=== PATIENT | male | born 1960 | race Caucasian/White ===

== ENCOUNTER → 2024-05-13 | Day surgery (SDC) | payer OTHER ==
[2024-05-11 15:23] VITALS: BMI 30.2
[~2024-05-13] MED LIST: ALPRAZolam 0.25 MG TAB PO PRN; ALPRAZolam 0.5 MG TAB PO PRN; ASPIRIN 325 MG TAB PO ONE; HEPARIN SODIUM,PORCINE (1 ML) 2,500 UNIT in SODIUM CHLORIDE 0.9% 250 ML IRRIGATION PRN; HEPARIN SODIUM,PORCINE 10,000 UNIT in SODIUM CHLORIDE 0.9% 1,000 ML IRRIGATION PRN; NITROGLYCERIN SL TABS 0.4 MG TAB SUBLINGUAL PRN; RX INFO: IV CONTRAST WAS GIVEN 1 EACH MISC MISCELLANE PRN; SODIUM CHLORIDE 0.9% 1,000 ML IV SCH; SODIUM CHLORIDE 0.9% 1,000 ML in EMPTY BAG 1 BAG IV SCH
[2024-05-13] MEDS: SODIUM CHLORIDE 0.9% 1,000 ML IV ONE (07:16)
[2024-05-13 07:30] VITALS: RESP 16; TEMP 98.1
[2024-05-13 07:50] LABS: Basophils % (A) 0 %; Eosinophils # (A) 0.2 k/uL (0-0.7); Eosinophils % (A) 2 %; HCT 50.4 % (39.0-53.0); HGB 16.5 gm/dL (13.0-17.5); Lymphocytes # (A) 1.7 k/uL (1.0-4.8); Lymphocytes % (A) 16 %; MCH 31.6 pg (25.0-35.0); MCHC 32.8 g/dL (31.0-37.0); MCV 96.3 fL (80.0-100.0); Mean Platelet Volume 8.5; Monocytes # (A) 0.6 k/uL (0-1.0); Monocytes % (A) 5 %; Neutrophils # (A) 8.4 k/uL (1.3-7.7); Neutrophils % (A) 76 %; Platelet Count 245 k/uL (150-450); RBC 5.23 m/uL (4.30-5.90); RDW 12.3 % (11.5-15.5); WBC 11.1 k/uL (3.8-10.6)
[2024-05-13 07:54] LABS: African American GFR (CKD) >90 (>60 ml/min/1.73 sqM); Anion Gap 9 mmol/L; Blood Urea Nitrogen 15 mg/dL (9-20); Calcium 9.1 mg/dL (8.4-10.2); Carbon Dioxide 25 mmol/L (22-30); Chloride 104 mmol/L (98-107); Glucose 120 mg/dL (74-99); Non-African American GFR(CKD) >90 (>60 ml/min/1.73 sqM); Sodium 138 mmol/L (137-145)
[2024-05-13] MEDS: MIDAZOLAM 2 MG/2 ML VIAL IVP ONE ×2 (09:48→09:57)
[2024-05-13] MEDS: LIDOCAINE 1% INJ 10MG/ML (20 ML MDV) SQ ONE (09:50)
[2024-05-13] MEDS: VERAPAMIL SYRINGE (5 MG/10 ML) INTRAARTER ONE (09:52)
[2024-05-13] MEDS: HEPARIN SODIUM 1,000 UN/ML (10ML VL) IVP ONE (09:54)
[2024-05-13] MEDS: IOPAMIDOL-370 100ML BTL INJ ONE (10:02)
--- NOTE | 2024-05-13 10:13 | P.PCN ---
Date of Procedure: 05/13/24 Operative Findings: CARDIAC CATHETERIZATION PERFORMING PHYSICIAN: Nate Torrez MD, RPVI PROCEDURE PERFORMED: 1. Selective right and left coronary angiogram 2. Left heart catheterization 3. Ultrasound-guided access of the right radial artery INDICATION: Symptomatic 63-year-old gentleman with hypertension and dyslipidemia and aortic insufficiency and dilated thoracic aorta was experiencing symptoms of shortness of breath and underwent myocardial perfusion imaging stress that showed high risk features with anterior wall ischemia at moderate size. In the light of that a heart catheterization was advised COMPLICATION: None APPROACH: Right radial artery LEVEL OF SEDATION: Moderate with a sedation length of 16 minutes PROCEDURE DESCRIPTION: After obtaining an informed consent, the patient was brought to cardiac technical laboratory asst. Local anesthesia was performed using lidocaine subcutaneously. The right radial artery was cannulated using Seldinger technique, the guidewire passed easily, following that we advanced a 5-Marshallese sheath dilator assembly, the wire and dilator were removed and sheath was flushed. Following that, 2 mg of verapamil along with 5000 unit heparin were given. Selective right and left coronary angiogram using a 6-Marshallese JR4 and JL 3.5 catheters. Following that we did left heart catheterization using 6-Marshallese pigtail catheter. The procedure was completed there was no complication. SELECTIVE CORONARY ANGIOGRAM: The right coronary artery: Large caliber vessel and a dominant vessel. The RCA has mild disease in the proximal portion with no high-grade stenosis was identified. Contralateral collateral filling the left anterior descending artery was noted and filled the LAD all the way to the mid to proximal portion Left main: Has mild disease only. Bifurcates into an LCx and LAD The left circumflex: Large caliber vessel. The LCx/OM1 has a tubular lesion up to about 70 to 80% in the proximal to midportion. The left anterior descending artery: The LAD is occluded in the proximal to midportion right after the bifurcation of a large diagonal branch. The LAD fills mainly by contralateral collateral and some ipsilateral collaterals. HEMODYNAMICS: The LVEDP was 12 mmHg with no significant gradient across aortic valve CONCLUSION: 1. Occluded left anterior descending artery in the proximal to midportion and the LAD fills mainly by contralateral collateral. 2. Severe disease involving the first obtuse marginal branch of the left circumflex coronary artery POSTPROCEDURE MANAGEMENT: Giving the above anatomy I advised the patient to evaluated by cardiothoracic surgeon for an evaluation of CABG.
--- NOTE | 2024-05-13 11:56 | P.GSCN ---
History of Present Illness Consult date: 05/13/24 Reason for Consult: Multivessel coronary artery disease Requesting physician: Nate Torrez History of present illness: This is a 63-year-old gentleman who follows on an outpatient basis with Dr. Christofer Sunshine for his primary care and with Dr. Torrez for his cardiology care. The patient has a past medical history significant for hypertension, hyperlipidemia, family history of early onset coronary artery disease with his mom passing away at age 60 from a heart attack, skin cancer to his head and to his left upper chest, osteoarthritis with history of bilateral rotator cuff surgery, a remote history of nicotine dependence quit smoking 20 years ago and daily EtOH use drinking 2-3 beers per day. Recently the patient states he underwent a physical exam and was complaining of some shortness of breath episodes to his primary care physician. The patient denies any recent fever, chills, nausea, vomiting, headache, hemoptysis, hematemesis, chest pain/chest pressure, lightheadedness, presyncope or syncope. Subsequently the patient was seen by Dr. Bowling from cardiology and underwent a nuclear Sangeetha scan Cardiolite stress test on February 17, 2024 which demonstrated an abnormal myocardial perfusion with evidence of rever sible defect of moderate size and moderately intensity anteriorly, it also showed a normal left ventricular systolic function. For further evaluation on April 21, 2024 the patient underwent a transthoracic 2D echocardiogram which showed a normal left ventricular systolic function with an ejection fraction of 55%, mild mitral valve regurgitation directed centrally, a trileaflet aortic valve with mild aortic valve regurgitation, mild tricuspid valve regurgitation and a normal pulmonary artery systolic pressure of 25 mmHg. Due to the patient's continued complaints of shortness of breath with activity and some jaw discomfort with activity the patient was recommended to undergo a cardiac jacqueline terization which was completed today. The cardiac catheterization revealed mild disease to his left main coronary artery, a 70 to 80% stenosis to his circumflex coronary artery, and occluded left anterior descending coronary artery in the proximal to midportion, and shows the left anterior descending coronary artery fills mainly by contralateral collaterals, and mild disease in the proximal portion of the right coronary artery with no high-grade stenosis. Subsequently due to the patient's results on his stress test, the patient's symptoms and the findings on the cardiac catheterization a consult was placed to Dr. Rick Tipton from cardiothoracic surgery for further evaluation and treatment recommendations including myocardial vascularization surgery. Review of Systems A review of systems was completed and was negative except as mentioned in the HPI. Past Medical History Past Medical History: Hyperlipidemia, Hypertension, Skin Disorder Additional Past Medical History / Comment(s): "I was having difficulty after exerting myself." "Spots on collar bone" History of Any Multi-Drug Resistant Organisms: None Reported Past Surgical History: Orthopedic Surgery Additional Past Surgical History / Comment(s): Bi lat rotator cuff repair. "Spots removed from collar bone." Additional Past Anesthesia/Blood Transfusion Reaction / Comm: No hx of blood transfusion. Past Psychological History: No Psychological Hx Reported Smoking Status: Former smoker (Quit 20 years ago) Past Alcohol Use History: Daily ( drinks 2-3 beers per day) Past Drug Use History: None Reported - Past Family History Father Family Medical History: Cancer (History of leukemia and bladder cancer) Mother Family Medical History: Myocardial Infarction (NC) ( at age 60 from myocardial infarction) Additional Family Medical History / Comment(s): Obese Medications and Allergies Home Medications Medication Instructions Recorded Confirmed Type Aspirin EC [Ecotrin Low Dose] 81 mg PO QA 05/11/24 05/13/24 History Atorvastatin [Lipitor] 40 mg PO QAM 05/11/24 05/11/24 History Olmesartan Medoxomil [Benicar] 40 mg PO QA 05/11/24 05/11/24 History Vit B-12(Unknown Dose) 1 dose PO QA 05/11/24 05/13/24 History Allergies Allergy/AdvReac Type Severity Reaction Status Date / Time No Known Allergies Allergy Verified 05/13/24 07:33 Surgical - Exam Vital Signs Temp Pulse Resp BP Pulse Ox 98.1 F 70 16 175/91 98 05/13/24 07:27 05/13/24 07:27 05/13/24 07:27 05/13/24 07:27 05/13/24 07:27 - General well developed, well nourished, no distress, no pain, obese - Eyes PERRL, normal ocular movement, no pale, no icteric - ENT normal pinna, normal nares, normal mucosa, no hearing loss, no congestion - Neck Neck is supple, no lymphadenopathy. no masses, no bruits, trachea midline, no venous distension - Respiratory Lung sounds essentially clear throughout, no wheezes, rhonchi or crackles. Respirations are symmetrical and nonlabored. - Cardiovascular Regular rhythm and rate. S1 and S2 present, negative for S3, or gallop. Soft systolic murmur. - Abdomen Abdomen is soft, nontender and nondistended. Active bowel sounds present all 4 abdominal quadrants. No guarding rigidity. No organomegaly appreciated. - Genitourinary Deferred - Rectum Deferred - Integumentary Skin is warm and dry. No clubbing or cyanosis is present. no rash, no growths - Neurologic No focal deficits. - Musculoskeletal Moves all 4 extremities with equal strength bilateral. - Psychiatric oriented to time, oriented to person, oriented to place, speech is normal, memory intact Results - Labs 05/13/24 07:22 05/13/24 07:22 Abnormal Lab Results - Last 24 Hours (Table) 05/13/24 05/13/24 Range/Units 07:22 07:22 WBC 11.1 H (3.8-10.6) k/uL Neutrophils # 8.4 H (1.3-7.7) k/uL Glucose 120 H (74-99) mg/dL Diabetes panel 05/13/24 Range/Units 07:22 Sodium 138 (137-145) mmol/L Potassium 4.0 (3.5-5.1) mmol/L Chloride 104 (98-107) mmol/L Carbon Dioxide 25 (22-30) mmol/L BUN 15 (9-20) mg/dL Creatinine 0.88 (0.66-1.25) mg/dL Glucose 120 H (74-99) mg/dL Calcium 9.1 (8.4-10.2) mg/dL Calcium panel 05/13/24 Range/Units 07:22 Calcium 9.1 (8.4-10.2) mg/dL Pituitary panel 05/13/24 Range/Units 07:22 Sodium 138 (137-145) mmol/L Potassium 4.0 (3.5-5.1) mmol/L Chloride 104 (98-107) mmol/L Carbon Dioxide 25 (22-30) mmol/L BUN 15 (9-20) mg/dL Creatinine 0.88 (0.66-1.25) mg/dL Glucose 120 H (74-99) mg/dL Calcium 9.1 (8.4-10.2) mg/dL Adrenal panel 05/13/24 Range/Units 07:22 Sodium 138 (137-145) mmol/L Potassium 4.0 (3.5-5.1) mmol/L Chloride 104 (98-107) mmol/L Carbon Dioxide 25 (22-30) mmol/L BUN 15 (9-20) mg/dL Creatinine 0.88 (0.66-1.25) mg/dL Glucose 120 H (74-99) mg/dL Calcium 9.1 (8.4-10.2) mg/dL - Imaging Additional studies: Cardiac catheterization results reviewed. Assessment and Plan Assessment: Multivessel coronary artery disease Dyspnea on exertion, likely secondary to above Hypertension Hyperlipidemia Family history of early onset coronary artery disease with his mother passing away from a myocardial infarction at age 60 Daily EtOH use drinking 2-3 beers per day Remote history of nicotine dependence quit smoking 20 years ago History of skin cancer, basal cell Osteoarthritis with history of bilateral rotator cuff surgery Plan: The patient was seen and examined at his bedside in the extended stay unit. His chart and diagnostics reviewed. His case was discussed in detail with Dr. Rick Tipton from cardiothoracic surgery. The usual course of myocardial revascularization surgery has been discussed with the patient. A clinical frailty score has been calculated with a score equaling 1. Once the patient is able to ambulate a 5 m walk test will be calculated with the patient. Preoperative testing and preoperative teaching has been initiated. Once the patient's preoperative testing has been obtained and STS risk or will be calculated and discussed with the patient. Medical management other comorbidities per primary care service and cardiology service. More recommendations to follow based on patient's clinical course and as his preoperative testing has been obtained. Thank you Dr. Torrez for this consult and we look forward to working with you in the care of this patient. I have personally seen and examined the patient, performed the documentation and the assessment and plan as written. Number of minutes spent on the visit: 30. AMY Marcano
[2024-05-13 12:59] LABS: Appearance,Urine Clear (Clear); Bilirubin,Urine Negative (Negative); Blood,Urine Negative (Negative); Color,Urine Colorless; Glucose,Urine (UA) Trace (Negative); Ketones,Urine Negative (Negative); Leukocyte Esterase,Urine Negative (Negative); Nitrite,Urine Negative (Negative); PH, Urine 6.5 (5.0-8.0); Protein,Urine Negative (Negative); Specific Gravity,Urine 1.031 (1.001-1.035); Urobilinogen,Urine <2.0 mg/dL (<2.0)
--- NOTE | 2024-05-13 13:02 | US ---
EXAMINATION TYPE: US vein mapping BILAT DATE OF EXAM: 05/13/2024 12:33 PM Exam done portable COMPARISON: NONE CLINICAL INDICATION: Male, 63 years old with history of PreOp Cardiac Surgery; SIDE PERFORMED: Bilateral TECHNIQUE: Lower extremity saphenous vein is examined and measured utilizing real time linear array sonography. DUPLEX FINDINGS: Greater Saphenous: Color flow seen Lesser Saphenous: Color flow seen Measurements in mm: Right Greater Saphenous: Groin: 8.6 x 7.4 mm High Thigh: 6.9 x 6.0 mm Mid Thigh: 6.3 x 4.6 mm Above Knee: 6.1 x 4.7 mm Knee: 5.5 x 4.6 mm Below Knee: 5.0 x 4.0 mm Mid Calf: 3.7 x 2.8 mm At Ankle: 4.2 x 2.9 mm Left Greater Saphenous: Groin: 6.3 x 6.1 mm High Thigh: 6.0 x 5.5 mm Mid Thigh: 5.0 x 3.8 mm Above Knee: 5.7 x 4.1 mm Knee: 3.9 x 3.2 mm Below Knee: 4.5 x 3.5 mm Mid Calf: 4.1 x 3.1 mm At Ankle: 3.3 x 2.7 mm IMPRESSION: 1. Bilateral GSV measurements listed above. 2. Performing surgeon to determine viability as conduit. [facility] 05/13/2024 12:40 PM
--- NOTE | 2024-05-13 13:05 | US ---
EXAMINATION TYPE: Pre-Operative Non-Invasive Evaluation of the hand for Potential Radial Artery [address], Measurements only Exam done portable DATE OF EXAM: 05/13/2024 12:33 PM CLINICAL INDICATION: Male, 63 years old with history of Pre-Op Cardiac Surgery; SIDE PERFORMED: Left TECHNIQUE: Radial artery is measured utilizing real time linear array sonography. Duplex Findings: Radial Artery: Color flow seen Measurements in mm, transverse view: Left Radial: Proximal: 2.8 x 3.1 mm Mid: 3.0 x 3.1 mm Distal: 3.1 x 3.2 mm IMPRESSION: 1. Left radial artery measurements listed above. 2. Performing surgeon to determine viability as conduit. [facility] 05/13/2024 12:38 PM
--- NOTE | 2024-05-13 13:06 | US ---
EXAMINATION TYPE: US carotid duplex BILAT DATE OF EXAM: 05/13/2024 Exam done portable COMPARISON: NONE CLINICAL INDICATION: Male, 63 years old with history of Pre-Op Cardiac Surgery; TECHNIQUE: Carotid duplex ultrasound examination. Indirect Doppler criteria was utilized. FINDINGS: EXAM MEASUREMENTS: RIGHT: Peak Systolic Velocity (PSV) cm/sec ----- Right CCA: 72.8 ----- Right ICA: 74.8 ----- Right ECA: 107.0 ICA/CCA ratio: 1.0 RIGHT: End Diastole cm/sec ----- Right CCA: 14.7 ----- Right ICA: 24.0 ----- Right ECA: 6.4 LEFT: Peak Systolic Velocity (PSV) cm/sec ----- Left CCA: 90.3 ----- Left ICA: 95.0 ----- Left ECA: 105.0 ICA/CCA ratio: 1.1 LEFT: End Diastole cm/sec ----- Left CCA: 16.2 ----- Left ICA: 24.3 ----- Left ECA: 6.6 VERTEBRALS (direction of flow): Right Vertebral: Antegrade Left Vertebral: Antegrade Rhythm: Normal No significant stenosis Moderate atherosclerotic plaque within the left carotid bulb. IMPRESSION: No ultrasound evidence for hemodynamically significant stenosis of the bilateral visualized carotid a rterial systems. [facility] 05/13/2024 12:34 PM Criteria for Assigning % of Stenosis / Diameter reduction (Estimation based on the indirect measurements of the internal carotid artery velocities (ICA PSV). 1. Normal (no stenosis)=ICA PSV < 125 cm/s: ratio < 2.0: ICA EDV<40 cm/s. 2. Less than 50% stenosis=ICA PSV < 125 cm/s: ratio < 2.0: ICA EDV<40 cm/s. 3. 50 to 69% stenosis=ICA PSV of 125 to 230 cm/s: ration 2.0 ? 4.0: ICA EDV 40-100 cm/s. 4. Greater than 70% stenosis to near occlusion= ICA PSV > 230 cm/s: ratio > 4.0: ICA EDV > 100 cm/s. 5. Near occlusion= ICA PSV velocities may be low or undetectable: variable ratio and ICA EDV. 6. Total occlusion=unable to detect flow.
--- NOTE | 2024-05-13 13:29 | US ---
EXAMINATION TYPE: US arterial LE multi level DATE OF EXAM: 05/13/2024 1:21 PM CLINICAL INDICATION: Male, 63 years old with history of Ankle Brachial Index (RUSTY) ; History of: Smoker: prior Hypertension: Y Diabetic: N Hyperlipidemia: Y TIA/CVA: N Previous Vascular Surgery: N CAD: N MN: N Vascular Ulcers: N Claudication: N Gangrene: N Doppler Waveforms: Right: Multiphasic Left: Multiphasic Right Brachial Pressure: HEART CATH Left Brachial Pressure: 155 Ankle-Brachial Indices: Right: 1.1 Left: 1.1 (Vessel hardening > 1.4; Normal 0.9 - 1.4, Moderate 0.7 - 0.9, Severe 0.5-0.7) NORMAL WAVEFORMS LIMITED DUE TO INTERFERENCE IN ESU IMPRESSION: Normal ankle-brachial indices bilaterally. [facility] 05/13/2024 1:22 PM
--- NOTE | 2024-05-13 13:36 | XR ---
EXAMINATION TYPE: XR chest 2V DATE OF EXAM: 05/13/2024 COMPARISON: NONE HISTORY: PreOp Cardiac Surgery TECHNIQUE: Frontal and lateral views of the chest are obtained. FINDINGS: Scattered senescent parenchymal changes noted. No evidence for infiltrate. No evidence for atelectasis. Heart size is stable. Mediastinal structures are stable and grossly unremarkable. No evidence for hilar prominence. Degenerative changes dorsal spine. IMPRESSION: 1. No evidence for acute pulmonary disease.
--- NOTE | 2024-05-13 14:04 | CT ---
EXAMINATION TYPE: CT chest wo con CT DLP: 435 mGycm, Automated exposure control for dose reduction was used. DATE OF EXAM: 05/13/2024 1:44 PM COMPARISON: Chest 05/13/2024. CLINICAL INDICATION: Male, 63 years old with history of Evaluate aorta; [facility], TECHNIQUE: Multiple axial images were obtained through the chest. Sagittal and coronal reformats were created for review. Contrast used: mL of (None if empty) Oral contrast used: (None if empty) FINDINGS: LUNGS/ PLEURA: No focal consolidation, pneumothorax or pleural effusion. Streaky atelectasis in the l shiva bases. AIRWAY: Patent and unremarkable. HEART: Size within normal limits.Atherosclerosis of the arterial vasculature. MEDIASTINUM: No gross evidence of adenopathy. VASCULATURE: No aortic aneurysm. The ascending thoracic aorta measures up to 39 mm. Mild atheroscler osis of the aorta. The descending thoracic aorta measures up to 27 mm. The abdominal aorta visualized is within normal limits. MUSCULOSKELETAL: No acute osseous abnormalities SOFT TISSUES/LYMPH NODES: Unremarkable. LOWER NECK: No significant findings. UPPER ABDOMEN: No significant findings. IMPRESSION: 1. No Evidence for acute process. The ascending and descending thoracic aorta are within normal limi ts for size. 2. Mild atherosclerosis of the arterial vasculature including the coronary arteries.
[2024-05-13 14:44] LABS: Partial Thromboplastin Time 24.7 sec (22.0-30.0); Prothrombin Time 10.6 sec (10.0-12.5)
[2024-05-13 14:53] LABS: Sodium 137 mmol/L (137-145)
[2024-05-13 14:54] LABS: ALT 18 U/L (4-49); AST 24 U/L (17-59); African American GFR (CKD) >90 (>60 ml/min/1.73 sqM); Albumin 3.9 g/dL (3.5-5.0); Alkaline Phosphatase 78 U/L (38-126); Anion Gap 8 mmol/L; Blood Urea Nitrogen 15 mg/dL (9-20); Carbon Dioxide 24 mmol/L (22-30); Chloride 105 mmol/L (98-107); Glucose 131 mg/dL (74-99); Magnesium 2.1 mg/dL (1.6-2.3); Non-African American GFR(CKD) >90 (>60 ml/min/1.73 sqM); Potassium 4.3 mmol/L (3.5-5.1); Total Bilirubin 0.7 mg/dL (0.2-1.3); Total Protein 6.7 g/dL (6.3-8.2)
[2024-05-13 16:21] VITALS: BP 141/73; PULSE 71
[2024-05-13 21:03] LABS: Hepatitis A Antibody IgM Nonreactive (Nonreactive); Hepatitis B Core IgM Nonreactive (Nonreactive); Hepatitis B Surface Antigen Nonreactive (Nonreactive); Hepatitis C IgG Antibody Nonreactive (Nonreactive)
[2024-05-14 01:52] LABS: Chol/HDL Ratio 4.63 Ratio; LDL Cholesterol,Calculated 148.6 mg/dL (0.0-131.0)
== END ==
LOC: CATHCVL 07:04
PROVIDERS: ATTEND Internal Medicine Interventional Cardiology
DX: R06.02 Shortness of breath (principal); I10 Essential (primary) hypertension; E78.5 Hyperlipidemia, unspecified; F17.200 Nicotine dependence, unspecified, uncomplicated; C44.90 Unspecified malignant neoplasm of skin, unspecified; E66.3 Overweight; Z68.30 Body mass index [BMI] 30.0-30.9, adult; Z79.02 Long term (current) use of antithrombotics/antiplatelets; Z79.82 Long term (current) use of aspirin; Z79.899 Other long term (current) drug therapy
CPT/HCPCS: 94150; 93458; 80061; 80053; 80048; 80074; 84443; 83735; 85025; 85610; 85730; 81003; 87070; 83036; 71046; 93931; 93970; 93923; 93880; 71250; J2250; J2001; J1644; Q9967

== ENCOUNTER → 2024-05-20 | Outpatient (CLI) | payer OTHER | END | disposition home or self-care (01) | LOC: LABPAT 15:32 | PROVIDERS: ATTEND Thoracic Surgery (Cardiothoracic Vascular Surgery) | DX: Z53.9 Procedure and treatment not carried out, unspecified reason (principal) | CPT/HCPCS: 86850; 86900; 86901; 86920 ==

== ENCOUNTER 2024-05-24 05:35 | Inpatient (IN) | payer OTHER ==
[2024-05-24] MEDS: IV FLUID CONTINUATION 1,000 ML IV ONE (06:00)
[2024-05-24] MEDS: LACTATED RINGERS 1,000 ML IV ONE (06:23)
[2024-05-24] MEDS: METOPROLOL TARTRATE 12.5 MG TAB PO ONE (06:27)
[2024-05-24] MEDS: ATORVASTATIN 10 MG TAB PO ONE (06:27)
--- NOTE | 2024-05-24 06:33 | P.PN ---
Progress Note - Text Progress Note Date: 05/24/24 5 meter walk test completed without difficulty: #1 2.98 sec #2 3.5 sec #3 3.27 sec STS risk score discussed with patient, CFS 1
[2024-05-24] MEDS ORDERED: NITROGLYCERIN-D5W PMX 50 MG/250 ML BOTTLE IV ONE (08:03)
[2024-05-24] MEDS ORDERED: HEPARIN SODIUM,PORCINE 10,000 UNIT/ML 1 ML VIAL ONE (08:03)
[2024-05-24] MEDS ORDERED: PROPOFOL 10 MG/ML 20 ML VIAL IV ONE (08:03)
[2024-05-24] MEDS ORDERED: GLYCOPYRROLATE 0.2 MG/ML 2 ML VIAL ONE (08:03)
[2024-05-24] MEDS ORDERED: VECURONIUM 10 MG VIAL IV ONE (08:03)
[2024-05-24] MEDS ORDERED: MIDAZOLAM HCL 10 MG/10 ML VIAL ONE (08:03)
[2024-05-24] MEDS ORDERED: PROTAMINE SULFATE 10 MG/ML 25 ML VIAL IV ONE (08:03)
[2024-05-24] MEDS ORDERED: PHENYLEPHRINE 10 MG/ML VIAL ONE (08:03)
[2024-05-24] MEDS ORDERED: ALBUMIN HUMAN 5% (25gm) 500 ML VIAL IVPB ONE (08:03)
[2024-05-24] MEDS ORDERED: fentaNYL (PF) 50 MCG/ML 50 ML VIAL ONE (08:03)
[2024-05-24] MEDS ORDERED: ePHEDrine 50 MG/ML 1 ML VIAL ONE (08:03)
[2024-05-24] MEDS: SODIUM CHLORIDE 0.9% 50 ML with ceFAZolin 2,000 MG IV ONE (08:14)
[2024-05-24 08:43] LABS: ABG Base Excess 1.1 mmol/L; ABG Glucose Whole Blood 121 mg/dL (75-99); ABG HCO3 26 mmol/L (21-25); ABG Hematocrit 42 % (34.0-46.0); ABG Ionized Calcium 4.6 mg/dL (4.5-5.3); ABG Lactic Acid Whole Blood 1.1 mmol/L (0.5-1.6); ABG Oxygen Saturation 99.1 % (94-97); ABG PCO2 42 mmHg (35-45); ABG PO2 288 mmHg (83-108); ABG Potassium Whole Blood 4.1 mmol/L (3.4-4.5); ABG Sodium Whole Blood 139 mmol/L (135-146); ABG TCO2 23 mmol/L (19-24); Allen Test Performed? Yes
[2024-05-24] MEDS: PAPAVERINE 360 MG in SODIUM CHLORIDE 0.9% 90 ML IV ONE (09:00)
[2024-05-24] MEDS: SODIUM CHLORIDE 0.9% 500 ML 500 ML with HEPARIN SODIUM,PORCINE (1 ML) 5,000 UNIT IV ONE (09:00)
[2024-05-24] MEDS: ceFAZolin 1,000 MG in SODIUM CHLORIDE 0.9% 1,000 ML IRRIGATION ONE (09:01)
--- NOTE | 2024-05-24 10:38 | P.ANPRN ---
Procedure Note - Anesthesia - Invasive Line Right [place] Mallorie Time Out Performed: Yes (0731) Date of Procedure: 05/24/24 Time of Procedure: 07:36 Location of Patient: PreOp Preparation: Sterile Prep [place] Mallorie Line Location: Internal Jugular Ultrasound Used: No Purpose - Visualization and Identification of Vasculature: No Image Stored and Saved: No Narrative: Invasive line placement per sterile protocol utilized. Anesthesia note Procedure right [place]-Mallorie catheter placed through right internal jugular central venous catheter Sterile protocol maintained from previous procedure. [place]-Mallorie catheter sterilely placed in sheath and flushed prior to insertion. After advancing 15 cm [place]-Mallorie catheter was then slowly inserted with balloon up. Advanced through CVP, RV to PA waveform. [place]-Mallorie catheter wedged around 53 cm. Balloon down. Catheter withdrawn 5 cm. . No wedge. Proximal and distal sites locked on sheath. Attempts x1. Sterile drapes removed and dressings applied.
--- NOTE | 2024-05-24 10:38 | P.ANPRN ---
Procedure Note - Anesthesia - Invasive Line Right Central Line Time Out Performed: Yes (731) Date of Procedure: 05/24/24 Time of Procedure: 07:32 Location of Patient: PreOp Preparation: Sterile Prep, Sterile Dressing Central Line Location: Internal Jugular (right cordis) Ultrasound Used: Yes Purpose - Visualization and Identification of Vasculature: Yes Needle Guage: 18g angio Image Stored and Saved: Yes Narrative: Invasive line placement per sterile protocol utilized. Anesthesia note Procedure: Right internal jugular central venous catheter insertion: 8.5-Telugu Cordis Sterile protocol followed. Right neck prepped. Ultrasound used. Lidocaine 1% used. Using ultrasound local anesthetic was instilled site over right Internal Jugular vein. Angiocath was used to gain access via ultrasound. Once free flow non-pulsatile blood flow was confirmed, 12 inch extension tubing was then placed on Angiocath. Once central venous pressure was confirmed, J-wire was then placed through Angiocath. Angiocath was then withdrawn. Local was instilled at J-wire site. Small skin rubens was then made with provided sterile scalpel. 8.5- Telugu Cordis was then inserted over the wire while maintaining control of wire at all times. Uneventful insertion with dilation. Free flow nonpulsatile blood flow through Cordis. Hooked up to IV tubing. Secured with suture. Dressings applied. Drapes Removed. Attempts x1.
--- NOTE | 2024-05-24 10:39 | P.ANPRN ---
Procedure Note - Anesthesia - MARCELLE Intraop Pre Bypass MARCELLE Intraop - Anesthesia Indication: Coronary artery disease Date of Procedure: 05/24/24 Pre-operative Diagnosis: Coronary artery disease Post-operative Diagnosis: Same Surgeon: Rick Tipton Left Ventricle: Within normal limits Ejection Fraction: Normal Regional Wall Motion Abnormalities: None Left Ventricle Hypertrophy: No R. Ventricle Function: Normal Anatomy: Trileaflet Aortic Stenosis: None Aortic Regurgitation: Trace Mitral Stenosis: None Mitral Regurgitation: Trace Tricuspid Stenosis: None Tricuspid Regurgitation: Trace Pulmonic Stenosis: None Pulmonic Regurgitation: None R. Atrial Dilation: No R. Atrial PFO: No L. Atrial Dilation: No Aorta: Ascending aorta 3.4 Aortic Dissection: No Aortic Calcification: None Plural Effusion: None
[2024-05-24 10:56] LABS: ABG Base Excess 0.7 mmol/L; ABG Glucose Whole Blood 120 mg/dL (75-99); ABG HCO3 26 mmol/L (21-25); ABG Hematocrit 37 % (34.0-46.0); ABG Ionized Calcium 4.4 mg/dL (4.5-5.3); ABG Lactic Acid Whole Blood 1.3 mmol/L (0.5-1.6); ABG Oxygen Saturation 98.7 % (94-97); ABG PCO2 43 mmHg (35-45); ABG PH 7.39 (7.35-7.45); ABG PO2 160 mmHg (83-108); ABG Potassium Whole Blood 4.2 mmol/L (3.4-4.5); ABG Sodium Whole Blood 139 mmol/L (135-146); ABG TCO2 24 mmol/L (19-24); Allen Test Performed? Yes
[2024-05-24 11:25] LABS: ABG Base Excess 0.3 mmol/L; ABG Glucose Whole Blood 118 mg/dL (75-99); ABG HCO3 25 mmol/L (21-25); ABG Hematocrit 35 % (34.0-46.0); ABG Ionized Calcium 4.4 mg/dL (4.5-5.3); ABG Lactic Acid Whole Blood 1.1 mmol/L (0.5-1.6); ABG Oxygen Saturation 98.9 % (94-97); ABG PCO2 41 mmHg (35-45); ABG PO2 171 mmHg (83-108); ABG Sodium Whole Blood 139 mmol/L (135-146); ABG TCO2 23 mmol/L (19-24); Allen Test Performed? Yes
[2024-05-24 12:05] LABS: ABG Base Excess 0.5 mmol/L; ABG Glucose Whole Blood 125 mg/dL (75-99); ABG HCO3 25 mmol/L (21-25); ABG Hematocrit 35 % (34.0-46.0); ABG Ionized Calcium 4.4 mg/dL (4.5-5.3); ABG Lactic Acid Whole Blood 1.1 mmol/L (0.5-1.6); ABG Oxygen Saturation 98.7 % (94-97); ABG PCO2 40 mmHg (35-45); ABG PH 7.41 (7.35-7.45); ABG PO2 116 mmHg (83-108); ABG Sodium Whole Blood 139 mmol/L (135-146); ABG TCO2 23 mmol/L (19-24); Allen Test Performed? Yes
[2024-05-24] MEDS ORDERED: Potassium Replacement Protocol 1 EACH MISC MISCELLANE PRN (12:40)
[2024-05-24] MEDS ORDERED: DEXTROSE 50% SYRINGE 50 ML IVP PRN ×2 (12:40)
[2024-05-24] MEDS ORDERED: Magnesium Replacement Protocol 1 EACH MISC MISCELLANE PRN (12:40)
[2024-05-24] MEDS ORDERED: IPRATROPIUM-ALBUTEROL 3 ML NEB INHALATION PRN (12:40)
[2024-05-24] MEDS ORDERED: AMIODARONE 450 MG in DEXTROSE 5% IN WATER 250 ML IV PRN (12:40)
[2024-05-24] MEDS ORDERED: BENZOCAINE/MENTHOL LOZENG 1 EACH LOZENGE MUCOUS MEM PRN (12:40)
[2024-05-24] MEDS ORDERED: DEXTROSE 5% IN WATER 100 ML with AMIODARONE 150 MG IV PRN (12:40)
[2024-05-24] MEDS ORDERED: METOCLOPRAMIDE 5 MG/ML 2 ML VIAL IVP PRN (12:40)
[2024-05-24] MEDS ORDERED: CALCIUM GLUCONATE IN NACL 2 GM in SALINE 1 100ML.BAG IVPB PRN (12:40)
[2024-05-24] MEDS ORDERED: hydrALAZINE HCL 20 MG/ML 1 ML VIAL IVP PRN (12:40)
[2024-05-24] MEDS ORDERED: AMIODARONE 360 MG in DEXTROSE 5% IN WATER 200 ML IV PRN (12:40)
--- NOTE | 2024-05-24 12:59 | P.OP ---
Date of Procedure: 05/24/24 Preoperative Diagnosis: Coronary artery disease Postoperative Diagnosis: Same Procedure(s) Performed: Off-pump CABG x 2 with SUNDAY to LAD and CHAMBERS to obtuse marginal with ligation of the left atrial appendage with 35mm AtriCure clip Implants: 35 mm AtriCure clip Anesthesia: SURJIT Surgeon: Rick Tipton Sweat Box Attendant #1: Jadiel Martinez Estimated Blood Loss (ml): 200 IV fluids (ml): 2,000 Urine output (ml): 300 Pathology: none sent Condition: stable Disposition: ICU Indications for Procedure: 63-year-old male presented with fatigue. Stress testing was positive. Cardiac catheterization demonstrated complete occlusion of the LAD and tight stenosis in the major marginal branch of the circumflex. Coronary bypass was recommended and scheduled electively. Operative Findings: Left ventricular function was good. Coronary targets were good. Internal mammary artery conduits were good. Description of Procedure: Patient was brought to the operating room and placed supine on the operating table. Preoperative monitoring lines have been placed in the preoperative holding area. General anesthesia was induced and the patient was intubated. MARCELLE probe was placed. MARCELLE evaluation of the heart was performed by Dr. Jackson without any unexpected findings. Anterior torso and bilateral lower extremities were sterilely prepped and draped. Midline sternotomy was performed. The left internal mammary artery was harvested on a vascularized pedicle, left intact on its origin from the subclavian and divided distally. Left pleural space was drained with a 32 English chest tube. The right internal mammary artery was harvested on a vascularized pedicle, left intact and surgeon from the subclavian and divided distally. The right pleural space was drained with a 32 English chest tube. Standard sternal retractor was placed and the heart was exposed with pericardial sutures. The patient was heparinized and ACT is maintained gre ater than 250 during grafting. Left atrial appendage was ligated at its base with a 35 mm AtriCure clip. The SUNDAY was tunneled into the pericardium through the epicardial/thymic fat pad superiorly just inferior to the confluence of the innominate veins to form the superior vena cava. It was brought up across the ascending aorta at the pericardial reflection and then down onto the anterior wall of the heart. The LAD was grafted fairly proximally. It was stabilized and opened. Blood flow was controlled with a 2.0 mm flow-through. It was a 2 mm plus size vessel. End-to-side anastomosis of the SUNDAY to the LAD was performed with running 8-0 Prolene suture. On completion of the anastomosis the flow through was removed effectively probing the proximal and distal portion of the anastomosis. Suture was tied with good result and hemostasis. Inflow was opened. Alberto filled well. There were no leaks. SADAF was tacked surrounding epicardium with 6-0 silk sutures. Next the CHAMBERS was tunneled into the pericardial space above the level of the phrenic nerve. It was brought behind the left ventricle. And was of more than adequate length to reach the major marginal branch of the circumflex coronary artery. Circumflex coronary artery marginal branch was exposed and stabilized. It was opened and blood flow controlled with a 1.5 mm flow-through. Was a 1.5 mm plus vessel. End-to-side anastomosis between the CHAMBERS and the OM was performed with running 8-0 Prolene suture. On completion the anastomosis the flow through was removed effectively probing the proximal and distal portion of the anastomosis. Suture was tied with good result and hemostasis. Inflow was opened. The foot was noted to fill well. Heart was lowered in anatomic position. Good hemostasis was obtained throughout after reversal of protamine. Chest was irrigated with antibiotic solution and the mediastinum drained with a 36 English chest tube. The sternum was closed with 8 sternal wires. Fascia was closed with 0 Ethibond. Subcutaneous and subcuticular layers were closed with layers of Vicryl suture. Dry sterile dressings were applied and the patient was transferred to ICU in stable condition. No inotropic support and no blood transfusions were required.
[2024-05-24 13:28] LABS: Glucose,Whole Blood 132 mg/dL (70-110)
[2024-05-24] MEDS: INSULIN REGULAR 100 UNIT in SODIUM CHLORIDE 0.9% 100 ML IV SCH (13:32)
[2024-05-24] MEDS: NITROGLYCERIN-D5W PMX 50 MG in DEXTROSE/WATER 1 250ML.BAG IV SCH (13:37)
[2024-05-24] MEDS: SODIUM CHLORIDE 0.9% 1,000 ML IV SCH (13:38)
[2024-05-24 13:41] LABS: ABG Base Excess 0.1 mmol/L; ABG HCO3 25 mmol/L (21-25); ABG PCO2 40 mmHg (35-45); ABG PO2 298 mmHg (83-108); ABG TCO2 26 mmol/L (19-24)
[2024-05-24 13:49] LABS: Basophils % (A) 0 %; Eosinophils # (A) 0.1 k/uL (0-0.7); Eosinophils % (A) 1 %; HCT 33.3 % (39.0-53.0); Lymphocytes % (A) 6 %; MCH 32.8 pg (25.0-35.0); MCHC 34.7 g/dL (31.0-37.0); MCV 94.5 fL (80.0-100.0); Monocytes # (A) 0.5 k/uL (0-1.0); Monocytes % (A) 3 %; Neutrophils # (A) 13.9 k/uL (1.3-7.7); Neutrophils % (A) 90 %; Platelet Count 150 k/uL (150-450); RBC 3.52 m/uL (4.30-5.90); RDW 12.5 % (11.5-15.5); WBC 15.4 k/uL (3.8-10.6)
[2024-05-24] MEDS: ALBUMIN HUMAN 5% 250 ML in EMPTY BAG 1 BAG IVPB PRN (13:51)
[2024-05-24] MEDS: CLEVIDIPINE BUTYRATE 25 MG in EMPTY BAG 1 BAG IV SCH (13:52)
--- NOTE | 2024-05-24 13:55 | XR ---
EXAMINATION TYPE: XR chest 1V portable DATE OF EXAM: 05/24/2024 COMPARISON: 05/13/2024 INDICATION: Postop cardiac surgery TECHNIQUE: Single frontal view of the chest is obtained. FINDINGS: The heart size is normal. The pulmonary vasculature is normal. Small left pleural fluid collection present Sternotomy wires are present from prior surgery. [place]-Mallorie catheter is present with tip in the main p ulmonary artery region. Bilateral chest tubes are present. Mediastinal tube is present. Endotracheal tube tip is above the janeen. Nasogastric tube tip appears to be in the distal esophagus. This should be advanced approximately 13 cm. IMPRESSION: 1. Lines and catheters discussed above. 2. Gastric tube should be advanced 13 cm for better positioning. 3. Small left pleural effusion [facility], , 05/24/2024 1:53 PM
[2024-05-24 13:56] LABS: INR 1.1 (<1.2); Partial Thromboplastin Time 28.4 sec (22.0-30.0); Prothrombin Time 11.8 sec (10.0-12.5)
[2024-05-24] MEDS: propofoL 1,000 MG/100 ML VIAL IV ONE (13:57)
[2024-05-24 13:59] LABS: HGB 11.5 gm/dL (13.0-17.5)
[2024-05-24 14:03] LABS: ALT 13 U/L (4-49); AST 20 U/L (17-59); African American GFR (CKD) >90 (>60 ml/min/1.73 sqM); Alkaline Phosphatase 47 U/L (38-126); Anion Gap 2 mmol/L; Blood Urea Nitrogen 11 mg/dL (9-20); Calcium 7.6 mg/dL (8.4-10.2); Carbon Dioxide 25 mmol/L (22-30); Chloride 108 mmol/L (98-107); Glucose 121 mg/dL (74-99); Magnesium 2.1 mg/dL (1.6-2.3); Non-African American GFR(CKD) >90 (>60 ml/min/1.73 sqM); Sodium 135 mmol/L (137-145); Total Protein 4.9 g/dL (6.3-8.2)
[2024-05-24 14:06] LABS: Glucose,Whole Blood 139 mg/dL (70-110)
--- NOTE | 2024-05-24 14:31 | P.CRDCN ---
History of Present Illness Consult date: 05/24/24 History of present illness: History of Present Illness: The patient is a 63-year-old male who is followed by Dr. Torrez who was admitted today to undergo coronary bypass grafting by Dr. Tipton. He was evaluated as an outpatient by Dr. Torrez and was found to have moderate area of stress-induced ischemia, he subsequently underwent cardiac catheterization that showed occluded LAD from the proximal to the midportion at the bifurcation of a large diagonal branch and significant disease in the OM. The right coronary artery had mild obstructive disease. He underwent CABG today with CHAMBERS to the OM and SUNDAY to the LAD. He is intubated and sedated, hemodynamically stable. He is in sinus mechanism on no vasopressors. He has good urinary output. Preoperatively his systolic function was normal by echocardiography. His coronary risks factor are positive for hypertension and hyperlipidemia Medications: As an outpatient Benicar 20 mg daily, Lipitor 40 mg daily, aspirin Review of Systems: Could not be obtained, the patient is intubated Physical Examination: 63-year-old male intubated and sedated,Blood pressure 98/50, Heart rate 75, intubated Head: Normocephalic. Eyes: Sclerae nonicteric. Neck: Good carotid upstroke, no bruit, no jugular venous distention. [place]Mallorie catheter in place Lungs: Clear to auscultation. Heart: Regular rate and rhythm, S1-S2, no S3, no rub. No murmur. Abdomen: Soft , positive bowel sounds no organomegaly. Extremities: No edema, intact distal pulses. Labs: Hemoglobin 11.5, WBC 15.4. pH 7.41, pCO2 40, pO2 116. Potassium 4.0, BUN 11, creatinine 0.77. Chest x-ray with small left pleural effusion EKG: Pending Impression: 1. Status post CABG, with arterial conduit, stable, intubated 2. History of hypertension 3. History of hyperlipidemia 4. History of dilated ascending aorta Plan: 1. Continue routine postoperative care, wean and extubate as tolerated 2. Statin postextubation 3. Start beta-maico postextubation 4. Depending on his progress further recommendations will be made 5. Thank you for this consult we will follow with you Past Medical History Past Medical History: Cancer, Chest Pain / Angina, Hyperlipidemia, Hypertension, Skin Disorder Additional Past Medical History / Comment(s): hx. basal skin cancer, SOB w/exertion, occasional minor chest tightness per pt., Dupuytren's contractures krystin. hands History of Any Multi-Drug Resistant Organisms: None Reported Past Surgical History: Heart Catheterization, Orthopedic Surgery Additional Past Surgical History / Comment(s): Bilat. rotator cuff repair. skin cancer removed 6 weeks ago from left collarbone Past Anesthesia/Blood Transfusion Reactions: No Reported Reaction Additional Past Anesthesia/Blood Transfusion Reaction / Comment(s): No hx of blood transfusion. Smoking Status: Former smoker - Past Family History Father Family Medical History: Cancer Mother Family Medical History: Myocardial Infarction ([place]) Additional Family Medical History / Comment(s): Obese Medications and Allergies Home Medications Medication Instructions Recorded Confirmed Type Aspirin EC [Ecotrin Low Dose] 81 mg PO QAM 05/11/24 05/24/24 History Atorvastatin [Lipitor] 40 mg PO QAM 05/11/24 05/24/24 History Olmesartan Medoxomil [Benicar] 20 mg PO QAM 05/11/24 05/24/24 History Vit B-12(Unknown Dose) 1 dose PO QAM 05/11/24 05/24/24 History Vitamin D3(Unknown Dose) 1 tab PO DAILY 05/20/24 05/24/24 History Allergies Allergy/AdvReac Type Severity Reaction Status Date / Time No Known Allergies Allergy Verified 05/24/24 06:00 Physical Exam Vitals: Vital Signs Temp Pulse Pulse Resp BP BP Pulse Ox 05/24/24 14:15 75 16 99 05/24/24 14:06 05/24/24 14:00 80 16 99 05/24/24 13:45 77 16 98 05/24/24 13:43 05/24/24 13:30 82 16 99 05/24/24 13:15 87 7 L 99 05/24/24 13:14 86 12 99 05/24/24 12:49 05/24/24 06:38 169/103 05/24/24 06:29 98.0 F 85 16 171/95 97 FiO2 05/24/24 14:15 05/24/24 14:06 60 05/24/24 14:00 05/24/24 13:45 05/24/24 13:43 60 05/24/24 13:30 05/24/24 13:15 100 05/24/24 13:14 05/24/24 12:49 100 05/24/24 06:38 05/24/24 06:29 Intake and Output 05/23/24 05/24/24 05/24/24 22:59 06:59 14:59 Intake Total 53 Output Total 500 Balance -447 Intake: IV 53 Output: Urine 200 Estimated Blood Loss 300 Other: Voiding Method Indwelling Catheter Weight 98.8 kg ABP, PAP, CO, CI - Last 8 Hours Arterial Blood Pressure 98/49 Arterial Blood Pressure 98/48 Arterial Blood Pressure 107/53 Pulmonary Artery Pressure 31/21 Pulmonary Artery Pressure 25/15 Pulmonary Artery Pressure 26/15 Pulmonary Artery Pressure 31/16 Cardiac Output 7 Cardiac Output 8.8 Cardiac Index 3.2 Cardiac Index 4 Results 05/24/24 13:19 05/24/24 13:19 Cardiac Enzymes 05/24/24 Range/Units 13:19 AST 20 (17-59) U/L Coagulation 05/24/24 Range/Units 13:19 PT 11.8 (10.0-12.5) sec APTT 28.4 (22.0-30.0) sec CBC 05/24/24 Range/Units 13:19 WBC 15.4 H (3.8-10.6) k/uL RBC 3.52 L (4.30-5.90) m/uL Hgb 11.5 L D (13.0-17.5) gm/dL Hct 33.3 L (39.0-53.0) % Plt Count 150 (150-450) k/uL Comprehensive Metabolic Panel 05/24/24 Range/Units 13:19 Sodium 135 L (137-145) mmol/L Potassium 4.0 (3.5-5.1) mmol/L Chloride 108 H (98-107) mmol/L Carbon Dioxide 25 (22-30) mmol/L BUN 11 (9-20) mg/dL Creatinine 0.77 (0.66-1.25) mg/dL Glucose 121 H (74-99) mg/dL Calcium 7.6 L (8.4-10.2) mg/dL AST 20 (17-59) U/L ALT 13 (4-49) U/L Alkaline Phosphatase 47 (38-126) U/L Total Protein 4.9 L (6.3-8.2) g/dL Albumin 3.0 L (3.5-5.0) g/dL Current Medications Generic Name Dose Route Start Last Admin Trade Name Freq PRN Reason Stop Dose Admin Albuterol/Ipratropium 3 ml 05/24/24 12:40 Ipratropium-Albuterol 3 Ml Neb INHALATION RT-Q2H PRN Shortness Of Breath Or Wheezing Albuterol/Ipratropium 3 ml 05/24/24 16:00 Ipratropium-Albuterol 3 Ml Neb INHALATION 05/24/24 18:34 RT-Q4H GILDA Albuterol/Ipratropium 3 ml 05/24/24 20:00 Ipratropium-Albuterol 3 Ml Neb INHALATION RT-QID [facility] Aspirin 325 mg 05/25/24 09:00 Aspirin 325 Mg Tab PO DAILY [facility] Atorvastatin Calcium 40 mg 05/25/24 09:00 Atorvastatin 40 Mg Tab PO QAM [facility] Benzocaine/Menthol 1 each 05/24/24 12:40 Benzocaine/Menthol Lozeng 1 Each Lozenge MUCOUS MEM Q2H PRN Sore Throat Bisacodyl 10 mg 05/25/24 09:00 Bisacodyl 10 Mg Supp RECTAL DAILY PRN Constipation Clopidogrel Bisulfate 75 mg 05/25/24 09:00 Clopidogrel 75 Mg Tab PO DAILY [facility] Dextrose/Water 25 ml 05/24/24 12:40 Dextrose 50% Syringe 50 Ml IVP PER PROTOCOL PRN Hypoglycemia Protocol Dextrose/Water 50 ml 05/24/24 12:40 Dextrose 50% Syringe 50 Ml IVP PER PROTOCOL PRN Hypoglycemia Protocol Heparin Sodium (Porcine) 5,000 unit 05/24/24 16:00 Heparin Sodium,Porcine 5,000 Unit/Ml 1 Ml Vial SQ Q8HR [facility] Hydralazine HCl 10 mg 05/24/24 12:40 Hydralazine Hcl 20 Mg/Ml 1 Ml Vial IVP Q1H PRN Blood Pressure - High Clevidipine 25 mg/ IV Solution 50 mls @ 2 mls/hr 05/24/24 12:40 05/24/24 13:52 IV Not Given .Q24H GILDA Protocol 1 MG/HR Amiodarone HCl 150 mg/ 103 mls @ 618 mls/hr 05/24/24 12:40 Dextrose/Water IV .Q10M PRN A.FIB/FLUTTER Protocol Amiodarone HCl 360 mg/ 207.2 mls @ 34.533 mls/hr 05/24/24 12:40 Dextrose/Water IV .Q6H PRN A.FIB/FLUTTER Protocol 1 MG/MIN Amiodarone HCl 450 mg/ 250 mls @ 16.667 mls/hr 05/24/24 12:40 Dextrose/Water IV .Q15H PRN A.FIB/FLUTTER Protocol 0.5 MG/MIN Albumin Human 250 ml/ IV 250 mls @ 250 mls/hr 05/24/24 12:40 05/24/24 13:51 Solution IVPB 05/26/24 12:39 250 mls/hr Q1HR PRN Administration For Volume Protocol Dexmedetomidine HCl 400 mcg/ 100 mls @ 0 mls/hr 05/24/24 12:40 IV Solution IV 05/25/24 12:41 .Q0M GILDA Protocol Titrate Acetaminophen 1,000 mg/ IV 100 mls @ 400 mls/hr 05/24/24 18:00 Solution IVPB 05/25/24 12:14 Q6HR GILDA Cefazolin Sodium 2 gm/ Sodium 50 mls @ 100 mls/hr 05/24/24 16:00 Chloride IVPB 05/25/24 08:29 Q8HR GILDA Protocol Calcium Gluconate/Sodium 100 mls @ 100 mls/hr 05/24/24 12:40 Chloride 2 gm/ IV Solution IVPB 05/28/24 12:39 ONCE PRN Ionized Calcium less than 4.4 Insulin Human Regular 100 unit 101 mls @ 0 mls/hr 05/24/24 12:40 05/24/24 13:32 / Sodium Chloride IV 1 units/hr .Q0M GILDA 1.01 mls/hr Administration Protocol Per Protocol Nitroglycerin/Dextrose 50 mg/ 250 mls @ 1.5 mls/hr 05/24/24 12:40 05/24/24 13:37 IV Solution IV 5 mcg/min .Q24H GILDA 1.5 mls/hr Administration 5 MCG/MIN Propofol 1,000 mg/ IV Solution 100 mls @ 0 mls/hr 05/24/24 12:40 IV .Q0M GILDA Protocol Titrate Sodium Chloride 1,000 mls @ 50 mls/hr 05/24/24 12:40 05/24/24 13:38 Saline 0.9% IV 50 mls/hr .Q20H GILDA Administration Magnesium Hydroxide 2,400 mg 05/25/24 09:00 Magnesium Hydroxide 2,400 Mg/30 Ml Cup PO BID PRN Constipation Metoclopramide HCl 10 mg 05/24/24 12:40 Metoclopramide 5 Mg/Ml 2 Ml Vial IVP Q4H PRN Nausea And Vomiting Metoprolol Tartrate 12.5 mg 05/25/24 09:00 Metoprolol Tartrate 12.5 Mg Tab PO BID GILDA Miscellaneous Information 1 each 05/24/24 12:40 Potassium Replacement Protocol 1 Each Misc MISCELLANE DAILY PRN Per Protocol Protocol Miscellaneous Information 1 each 05/24/24 12:40 Magnesium Replacement Protocol 1 Each Misc MISCELLANE DAILY PRN Per Protocol Protocol Ondansetron HCl 4 mg 05/24/24 12:40 Ondansetron 4 Mg/2 Ml Vial IVP Q6HR PRN Nausea And Vomiting Oxycodone HCl 5 mg 05/24/24 12:40 Oxycodone Hcl 5 Mg Tab PO Q4HR PRN Moderate Pain (Scale 4 to 6) Oxycodone HCl 10 mg 05/24/24 12:40 05/24/24 13:55 Oxycodone Hcl 5 Mg Tab PO 10 mg Q4HR PRN Administration Severe Pain (Scale 7 to 10) Pantoprazole Sodium 40 mg 05/25/24 09:00 Pantoprazole 40 Mg/10 Ml Vial IVP DAILY GILDA Senna/Docusate Sodium 2 each 05/24/24 21:00 Sennosides-Docusate Sodium 1 Each Tab PO HS GILDA Sodium Chloride 10 ml 05/24/24 21:00 Sodium Chloride 0.9% Flush 10 Ml Syringe IV BID GILDA Intake and Output 05/23/24 05/24/24 05/24/24 22:59 06:59 14:59 Intake Total 53 Output Total 500 Balance -447 Intake: IV 53 Output: Urine 200 Estimated Blood Loss 300 Other: Voiding Method Indwelling Catheter Weight 98.8 kg 05/24/24 13:19 05/24/24 13:19
[2024-05-24 14:58] LABS: Glucose,Whole Blood 129 mg/dL (70-110)
--- NOTE | 2024-05-24 15:02 | P.CONS ---
History of Present Illness - Reason for Consult Consult date: 05/24/24 - History of Present Illness 63 year old M with PMH of CAD, HTN, HLD presents to [facility] for elective surgery. He underwent CABG x 2 with SUNDAY to LAD and CHAMBERS to obtuse marginal with Dr. Tipton. He is seen post operatively in the ICU. [facility] consulted for medical management of this patient. 05/24 Currently intubated. Sedated with Propofol at 50 mcg/kg/min. Nitroglycerin drip running at 5 mcg/min. NS running at 50 cc/hr. Insulin drip running a 1 unit/hr. CBC, Coag panel, CMP significant for WBC 15.4, RBC 3.52, Hg 11.5, Hct 33.3, Na 135, Cl 108, glu 121, Ca 7.6, alb 3.0. Mag 2.1. ABG pH 7.41, pCO2 40, pO2 116 FiO2 100%. CXR shows [place]-Mall[place] catheter, bilateral chest tube, mediastinal tube, ET tube, NG tube in the distal esophagus. General: non toxic, no distress, appears at stated age Derm: warm, dry, sternal scar dressing c/d/i Head: atraumatic, normocephalic, symmetric, ET tube in place Eyes: EOMI, no lid lag, anicteric sclera Mouth: no lip lesion, mucus membranes moist Cardiovascular: S1S2 reg, no murmur, mediastinal/bilateral chest tube in place Lungs: Coarse BS bilateral, no rhonchi, no rales , no accessory muscle use Abdominal: soft, non distended, + Patino Ext: no gross muscle atrophy, no edema, no contractures, bilateral LE wrapped c/d/i Neuro: Unable to determine Psych: Unable to determine Based on my assessment of this patient, this patient meets a high complexity level of care. Acute blood loss anemia: Expected result of surgery. Trend daily Hg. Leukocytosis: Likely reactive. No signs of active infection. Monitor fever profile. CAD status post CABG x 2 with SUNDAY to LAD and CHAMBERS to obtuse marginal with Dr. Tipton POD 0: ASA 325 mg PO QD. Lipitor 40 mg PO QAM. Plavix 75 mg PO QD. Metoprolol 12.5 mg PO BID. Hypertension: Metoprolol as above. Dyslipidemia: Lipitor as above. CODE STATUS: FULL CODE. DVT Prophylaxis: Heparin SQ GI Prophylaxis: Protonix IV Designated medical POA if patient is not able to make medical decisions for themselves: I have reviewed the following hospice consultant notes: Operative, Cardiology note. I have reviewed the results of the following tests: As above. I have ordered the following tests: CBC, CMP. I have discussed the care of this patient with the following independent historian: VIDA. I have independently interpreted the following test below: I have discussed the management of this patient with the following physician: Past Medical History Past Medical History: Cancer, Chest Pain / Angina, Hyperlipidemia, Hypertension, Skin Disorder Additional Past Medical History / Comment(s): hx. basal skin cancer, SOB w/exertion, occasional minor chest tightness per pt., Dupuytren's contractures krystin. hands History of Any Multi-Drug Resistant Organisms: None Reported Past Surgical History: Heart Catheterization, Orthopedic Surgery Additional Past Surgical History / Comment(s): Bilat. rotator cuff repair. skin cancer removed 6 weeks ago from left collarbone Past Anesthesia/Blood Transfusion Reactions: No Reported Reaction Additional Past Anesthesia/Blood Transfusion Reaction / Comm: No hx of blood transfusion. Smoking Status: Former smoker - Past Family History Father Family Medical History: Cancer Mother Family Medical History: Myocardial Infarction ([place]) Additional Family Medical History / Comment(s): Obese Medications and Allergies Home Medications Medication Instructions Recorded Confirmed Type Aspirin EC [Ecotrin Low Dose] 81 mg PO QAM 05/11/24 05/24/24 History Atorvastatin [Lipitor] 40 mg PO QAM 05/11/24 05/24/24 History Olmesartan Medoxomil [Benicar] 20 mg PO QAM 05/11/24 05/24/24 History Vit B-12(Unknown Dose) 1 dose PO QAM 05/11/24 05/24/24 History Vitamin D3(Unknown Dose) 1 tab PO DAILY 05/20/24 05/24/24 History Allergies Allergy/AdvReac Type Severity Reaction Status Date / Time No Known Allergies Allergy Verified 05/24/24 06:00 Physical Exam Vitals: Vital Signs Temp Pulse Pulse Resp BP BP Pulse Ox 05/24/24 14:15 75 16 99 05/24/24 14:06 05/24/24 14:00 80 16 99 05/24/24 13:45 77 16 98 05/24/24 13:43 05/24/24 13:30 82 16 99 05/24/24 13:15 87 7 L 99 05/24/24 13:14 86 12 99 05/24/24 12:49 05/24/24 06:38 169/103 05/24/24 06:29 98.0 F 85 16 171/95 97 FiO2 05/24/24 14:15 05/24/24 14:06 60 05/24/24 14:00 05/24/24 13:45 05/24/24 13:43 60 05/24/24 13:30 05/24/24 13:15 100 05/24/24 13:14 05/24/24 12:49 100 05/24/24 06:38 05/24/24 06:29 Intake and Output 05/23/24 05/24/24 05/24/24 22:59 06:59 14:59 Intake Total 632 Output Total 800 Balance -168 Intake: IV 82 CO/CI 20 Pressure bag 9 Intake, IV Titration 550 Amount Albumin Human 5% 250 ml 500 In Empty Bag 1 bag @ 250 mls/hr IVPB Q1HR PRN Rx#: [id number] Sodium Chloride 0.9% 1, 50 000 ml @ 50 mls/hr IV . Q20H GILDA Rx#:[id number] Output: Chest Tube Drainage 170 Left Pleural 40 Mediastinal 60 Right Pleural 70 Urine 330 Estimated Blood Loss 300 Other: Voiding Method Indwelling Catheter Weight 98.8 kg ABP, PAP, CO, CI - Last 8 Hours Arterial Blood Pressure 98/49 Arterial Blood Pressure 98/48 Arterial Blood Pressure 107/53 Pulmonary Artery Pressure 31/21 Pulmonary Artery Pressure 25/15 Pulmonary Artery Pressure 26/15 Pulmonary Artery Pressure 31/16 Cardiac Output 7 Cardiac Output 8.8 Cardiac Index 3.2 Cardiac Index 4 Results CBC & Chem 7: 05/24/24 13:19 05/24/24 13:19 Labs: Abnormal Lab Results - Last 24 Hours (Table) 05/20/24 05/24/24 05/24/24 Range/Units 15:57 08:47 11:01 WBC (3.8-10.6) k/uL RBC (4.30-5.90) m/uL Hgb (13.0-17.5) gm/dL Hct (39.0-53.0) % Neutrophils # (1.3-7.7) k/uL ABG pO2 288 H 160 H (83-108) mmHg ABG HCO3 26 H 26 H (21-25) mmol/L ABG O2 Saturation 99.1 H 98.7 H (94-97) % ABG Ionized Calcium 4.4 L (4.5-5.3) mg/dL ABG Glucose 121 H 120 H (75-99) mg/dL Hemoglobin 12.0 L (13.0-17.5) gm/dL Sodium (137-145) mmol/L Chloride (98-107) mmol/L Glucose (74-99) mg/dL POC Glucose (mg/dL) (70-110) mg/dL Calcium (8.4-10.2) mg/dL Total Protein (6.3-8.2) g/dL Albumin (3.5-5.0) g/dL Arterial Blood Glucose 121 H 120 H (75-99) mg/dL Crossmatch See Detail 05/24/24 05/24/24 05/24/24 Range/Units 11:29 12:10 13:19 WBC 15.4 H (3.8-10.6) k/uL RBC 3.52 L (4.30-5.90) m/uL Hgb 11.5 L D (13.0-17.5) gm/dL Hct 33.3 L (39.0-53.0) % Neutrophils # 13.9 H (1.3-7.7) k/uL ABG pO2 171 H 116 H (83-108) mmHg ABG HCO3 (21-25) mmol/L ABG O2 Saturation 98.9 H 98.7 H (94-97) % ABG Ionized Calcium 4.4 L 4.4 L (4.5-5.3) mg/dL ABG Glucose 118 H 125 H (75-99) mg/dL Hemoglobin 11.4 L 11.3 L (13.0-17.5) gm/dL Sodium (137-145) mmol/L Chloride (98-107) mmol/L Glucose (74-99) mg/dL POC Glucose (mg/dL) (70-110) mg/dL Calcium (8.4-10.2) mg/dL Total Protein (6.3-8.2) g/dL Albumin (3.5-5.0) g/dL Arterial Blood Glucose 118 H 125 H (75-99) mg/dL Crossmatch 05/24/24 05/24/24 05/24/24 Range/Units 13:19 13:27 14:04 WBC (3.8-10.6) k/uL RBC (4.30-5.90) m/uL Hgb (13.0-17.5) gm/dL Hct (39.0-53.0) % Neutrophils # (1.3-7.7) k/uL ABG pO2 (83-108) mmHg ABG HCO3 (21-25) mmol/L ABG O2 Saturation (94-97) % ABG Ionized Calcium (4.5-5.3) mg/dL ABG Glucose (75-99) mg/dL Hemoglobin (13.0-17.5) gm/dL Sodium 135 L (137-145) mmol/L Chloride 108 H (98-107) mmol/L Glucose 121 H (74-99) mg/dL POC Glucose (mg/dL) 132 H 139 H (70-110) mg/dL Calcium 7.6 L (8.4-10.2) mg/dL Total Protein 4.9 L (6.3-8.2) g/dL Albumin 3.0 L (3.5-5.0) g/dL Arterial Blood Glucose (75-99) mg/dL Crossmatch
[2024-05-24 15:27] LABS: Basophils % (A) 0 %; Eosinophils # (A) 0.1 k/uL (0-0.7); Eosinophils % (A) 0 %; HCT 33.3 % (39.0-53.0); HGB 11.2 gm/dL (13.0-17.5); Lymphocytes # (A) 0.6 k/uL (1.0-4.8); Lymphocytes % (A) 5 %; MCH 32.1 pg (25.0-35.0); MCHC 33.5 g/dL (31.0-37.0); MCV 95.7 fL (80.0-100.0); Mean Platelet Volume 9.3; Monocytes # (A) 0.5 k/uL (0-1.0); Monocytes % (A) 4 %; Neutrophils # (A) 10.7 k/uL (1.3-7.7); Neutrophils % (A) 90 %; Platelet Count 146 k/uL (150-450); RBC 3.49 m/uL (4.30-5.90); WBC 11.9 k/uL (3.8-10.6)
[2024-05-24] MEDS: HEPARIN SODIUM,PORCINE 5,000 UNIT/ML 1 ML VIAL SQ SCH (15:28)
[2024-05-24] MEDS: DEXMEDETOMIDINE/0.9% NACL(PMX) 400 MCG in EMPTY BAG 1 BAG IV SCH (15:45)
[2024-05-24 15:55] LABS: Glucose,Whole Blood 131 mg/dL (70-110)
[2024-05-24 15:59] LABS: Allen Test Performed? no
[2024-05-24 16:14] LABS: ABG Base Excess -0.8 mmol/L; ABG HCO3 25 mmol/L (21-25); ABG Oxygen Saturation 97.4 % (94-97); ABG PCO2 45 mmHg (35-45); ABG PH 7.35 (7.35-7.45); ABG PO2 92 mmHg (83-108); ABG TCO2 27 mmol/L (19-24)
--- NOTE | 2024-05-24 16:14 | P.CNPUL ---
History of Present Illness Consult date: 05/24/24 Chief complaint: CABG, vent managment History of present illness: This is a 63-year-old male patient who underwent coronary artery bypass surgery and the patient is being seen in the intensive care unit postop. The patient had a stress-induced ischemia the patient underwent cardiac catheterization and the patient was found to have occluded LAD from proximal to midportion at the bifurcation of a large diagonal branch and significant disease involving the OM. The right coronary artery disease also showed mild obstructive disease. The patient underwent coronary bypass surgery with CHAMBERS to OM and SUNDAY to LAD. The patient remains intubated on the mechanical ventilator. At this point in time, the patient is sedated on propofol which is running at 40 mcg/kg/min. The patient is on mechanical ventilator on assist-control mode rate of 16, tidal volume of 550, FiO2 of 100% with a PEEP of 10. Blood gas showed a pH of 7.4 with a pCO2 of 40 and pO2 of 298 and accordingly the FiO2 was dropped down to 60%. Postop chest x-ray was noted and the patient has a right pleural and left pleural and the mediastinal chest tube. ET tube is in a good location. The patient also has Emmet-Mallorie catheter in place. There is a left basilar atelectas is/pleural effusion noted. The cardiac output currently is at 4.0 with an index of 2.8. PA pressure 25/40. He is on no pressors. He is on insulin running at 1 unit an hour and the patient is in normal sinus rhythm. Hemoglobin is 11.2 with a white cell count of 11.9 and a platelet count of 146. Sugar is at 131. Comorbidities include hypertension hyperlipidemia. Review of Systems ROS unobtainable: due to endotracheal tube Past Medical History Past Medical History: Coronary Artery Disease (CAD), Cancer, Chest Pain / Angina, Hyperlipidemia, Hypertension, Skin Disorder Additional Past Medical History / Comment(s): hx. basal skin cancer, SOB w/exertion, occasional minor chest tightness per pt., Dupuytren's contractures krystin. hands History of Any Multi-Drug Resistant Organisms: None Reported Past Surgical History: Heart Catheterization, Orthopedic Surgery Additional Past Surgical History / Comment(s): Bilat. rotator cuff repair. skin cancer removed 6 weeks ago from left [facility] Past Anesthesia/Blood Transfusion Reactions: No Reported Reaction Additional Past Anesthesia/Blood Transfusion Reaction / Comment(s): No hx of blood transfusion. Smoking Status: Former smoker - Past Family History Father Family Medical History: Cancer Mother Family Medical History: Myocardial Infarction ([place]) Additional Family Medical History / Comment(s): Obese Medications and Allergies Home Medications Medication Instructions Recorded Confirmed Type Aspirin EC [Ecotrin Low Dose] 81 mg PO QAM 05/11/24 05/24/24 History Atorvastatin [Lipitor] 40 mg PO QA 05/11/24 05/24/24 History Olmesartan Medoxomil [Benicar] 20 mg PO QAM 05/11/24 05/24/24 History Vit B-12(Unknown Dose) 1 dose PO QAM 05/11/24 05/24/24 History Vitamin D3(Unknown Dose) 1 tab PO DAILY 05/20/24 05/24/24 History Allergies Allergy/AdvReac Type Severity Reaction Status Date / Time No Known Allergies Allergy Verified 05/24/24 06:00 Physical Exam Vitals: Vital Signs Temp Pulse Pulse Resp BP BP Pulse Ox 05/24/24 16:00 98.8 F 87 20 98 05/24/24 15:45 85 23 95 05/24/24 15:39 05/24/24 15:38 05/24/24 15:30 71 16 100 05/24/24 15:15 70 16 100 05/24/24 15:00 73 16 100 05/24/24 14:45 74 16 100 05/24/24 14:30 76 16 99 05/24/24 14:15 75 16 99 05/24/24 14:06 05/24/24 14:00 80 16 99 05/24/24 13:45 77 16 98 05/24/24 13:43 05/24/24 13:30 82 16 99 05/24/24 13:15 87 7 L 99 05/24/24 13:14 86 12 99 05/24/24 12:49 05/24/24 06:38 169/103 05/24/24 06:29 98.0 F 85 16 171/95 97 FiO2 05/24/24 16:00 50 05/24/24 15:45 05/24/24 15:39 50 05/24/24 15:38 60 05/24/24 15:30 05/24/24 15:15 05/24/24 15:00 05/24/24 14:45 05/24/24 14:30 05/24/24 14:15 05/24/24 14:06 60 05/24/24 14:00 05/24/24 13:45 05/24/24 13:43 60 05/24/24 13:30 05/24/24 13:15 100 05/24/24 13:14 05/24/24 12:49 100 05/24/24 06:38 05/24/24 06:29 Intake and Output 05/24/24 05/24/24 05/24/24 06:59 14:59 22:59 Intake Total 652 59 Output Total 800 30 Balance -148 29 Intake: IV 102 9 CO/CI 40 Pressure bag 9 9 Intake, IV Titration 550 50 Amount Albumin Human 5% 250 ml 500 In Empty Bag 1 bag @ 250 mls/hr IVPB Q1HR PRN Rx#: [id number] Sodium Chloride 0.9% 1, 50 50 000 ml @ 50 mls/hr IV . Q20H GILDA Rx#:[id number] Output: Chest Tube Drainage 170 Left Pleural 40 Mediastinal 60 Right Pleural 70 Urine 330 30 Estimated Blood Loss 300 Other: Voiding Method Indwelling Catheter Weight 98.8 kg ABP, PAP, CO, CI - Last 8 Hours Arterial Blood Pressure 139/69 Arterial Blood Pressure 145/72 Arterial Blood Pressure 105/52 Arterial Blood Pressure 102/51 Arterial Blood Pressure 99/52 Arterial Blood Pressure 119/56 Arterial Blood Pressure 112/54 Arterial Blood Pressure 98/49 Arterial Blood Pressure 98/48 Arterial Blood Pressure 107/53 Pulmonary Artery Pressure 35/20 Pulmonary Artery Pressure 29/15 Pulmonary Artery Pressure 30/15 Pulmonary Artery Pressure 25/14 Pulmonary Artery Pressure 31/21 Pulmonary Artery Pressure 25/15 Pulmonary Artery Pressure 26/15 Pulmonary Artery Pressure 31/16 Cardiac Output 9.4 Cardiac Output 7 Cardiac Output 7 Cardiac Output 8.8 Cardiac Index 4.3 Cardiac Index 3.2 Cardiac Index 3.2 Cardiac Index 4 Patient is sedated and patient is calm and comfortable, no acute distress. Orotracheal and orogastric tube are both in place. Head exam was generally normal. There was no scleral icterus or corneal arcus. Mucous membranes were moist. Neck was supple and without jugular venous distension, thyromegaly, or carotid bruits. Carotids were easily palpable bilaterally. There was no adenopathy. The patient has a right IJ Emmet-Mallorie catheter in place. Orogastric and orotracheal tube are both in place. Lung sounds are diminished bilaterally and the patient has a mediastinal and the right and the left pleural chest tube. No evidence of any air leak and output from the chest tubes are minimal at this point in time. Cardiac exam revealed the PMI to be normally situated and sized. The rhythm was regular and no extrasystoles were noted during several minutes of auscultation. The first and second heart sounds were normal and physiologic splitting of the second heart sound was noted. There were no murmurs, rubs, clicks, or gallops. Patient has a thoracotomy scar which is dry clean and intact. Abdominal exam revealed normal bowel sounds. The abdomen was soft, non-tender, and without masses, organomegaly, or appreciable enlargement of the abdominal aorta. Examination of the extremities revealed easily palpable radial, femoral and pedal pulses. There was no cyanosis, clubbing or edema. Examination of the skin revealed no evidence of significant rashes, suspicious appearing nevi or other concerning lesions. Results - Laboratory Findings CBC and BMP: 05/24/24 15:13 05/24/24 13:19 ABG ABG pH 7.40 (7.35-7.45) 05/24/24 13:40 ABG pCO2 40 mmHg (35-45) 05/24/24 13:40 ABG pO2 298 mmHg (83-108) H 05/24/24 13:40 ABG O2 Saturation 100.0 % (94-97) H 05/24/24 13:40 PT/INR, D-dimer PT 11.8 sec (10.0-12.5) 05/24/24 13:19 INR 1.1 (<1.2) 05/24/24 13:19 Abnormal lab findings: Abnormal Labs 05/20/24 05/24/24 05/24/24 15:57 08:47 11:01 WBC RBC Hgb Hct Plt Count Neutrophils # Lymphocytes # ABG pO2 288 H 160 H ABG HCO3 26 H 26 H ABG Total CO2 ABG O2 Saturation 99.1 H 98.7 H ABG Ionized Calcium 4.4 L ABG Glucose 121 H 120 H Hemoglobin 12.0 L Sodium Chloride Glucose POC Glucose (mg/dL) Calcium Total Protein Albumin Arterial Blood Glucose 121 H 120 H Crossmatch See Detail 05/24/24 05/24/24 05/24/24 11:29 12:10 13:19 WBC 15.4 H RBC 3.52 L Hgb 11.5 L D Hct 33.3 L Plt Count Neutrophils # 13.9 H Lymphocytes # ABG pO2 171 H 116 H ABG HCO3 ABG Total CO2 ABG O2 Saturation 98.9 H 98.7 H ABG Ionized Calcium 4.4 L 4.4 L ABG Glucose 118 H 125 H Hemoglobin 11.4 L 11.3 L Sodium Chloride Glucose POC Glucose (mg/dL) Calcium Total Protein Albumin Arterial Blood Glucose 118 H 125 H Crossmatch 05/24/24 05/24/24 05/24/24 13:19 13:27 13:40 WBC RBC Hgb Hct Plt Count Neutrophils # Lymphocytes # ABG pO2 298 H ABG HCO3 ABG Total CO2 26 H ABG O2 Saturation 100.0 H ABG Ionized Calcium ABG Glucose Hemoglobin 11.5 L Sodium 135 L Chloride 108 H Glucose 121 H POC Glucose (mg/dL) 132 H Calcium 7.6 L Total Protein 4.9 L Albumin 3.0 L Arterial Blood Glucose Crossmatch 05/24/24 05/24/24 05/24/24 14:04 14:57 15:13 WBC 11.9 H RBC 3.49 L Hgb 11.2 L Hct 33.3 L Plt Count 146 L Neutrophils # 10.7 H Lymphocytes # 0.6 L ABG pO2 ABG HCO3 ABG Total CO2 ABG O2 Saturation ABG Ionized Calcium ABG Glucose Hemoglobin Sodium Chloride Glucose POC Glucose (mg/dL) 139 H 129 H Calcium Total Protein Albumin Arterial Blood Glucose Crossmatch 05/24/24 15:54 WBC RBC Hgb Hct Plt Count Neutrophils # Lymphocytes # ABG pO2 ABG HCO3 ABG Total CO2 ABG O2 Saturation ABG Ionized Calcium ABG Glucose Hemoglobin Sodium Chloride Glucose POC Glucose (mg/dL) 131 H Calcium Total Protein Albumin Arterial Blood Glucose Crossmatch - Diagnostic Findings Chest x-ray: image reviewed Assessment and Plan Plan: Multivessel coronary artery disease, s/p coronary bypass surgery with CHAMBERS to OM and SUNDAY to LAD, patient is currently postop day #0. Hemodynamically stable. No pressors. Postthoracotomy, remains intubated on mechanical ventilator. The patient has adequate oxygenation and ventilation. Chest tubes are in place. No evidence of any air leak. No evidence of any pneumothorax Hypertension Hyperlipidemia History of skin cancer Plan Keep the patient sedated for now Wean down the FiO2 to maintain saturation above 90% monitor hemodynamics including cardiac output and index No pressors for now Hemodynamically stable Insulin drip for blood sugar management and control Possible extubation within the next few hours. Will continue to follow.
[2024-05-24 16:16] LABS: Allen Test Performed? no
[2024-05-24] MEDS: IPRATROPIUM-ALBUTEROL 3 ML NEB INHALATION SCH ×2 (16:16→21:39)
[2024-05-24 17:01] LABS: Glucose,Whole Blood 141 mg/dL (70-110)
[2024-05-24] MEDS: ACETAMINOPHEN IV (For NPO) 1,000 MG in EMPTY BAG 1 BAG IVPB SCH (17:11)
[2024-05-24 18:01] LABS: Glucose,Whole Blood 126 mg/dL (70-110)
[2024-05-24 18:20] LABS: Basophils % (A) 0 %; Eosinophils # (A) 0.1 k/uL (0-0.7); Eosinophils % (A) 1 %; HCT 34.2 % (39.0-53.0); HGB 11.2 gm/dL (13.0-17.5); Lymphocytes # (A) 0.3 k/uL (1.0-4.8); Lymphocytes % (A) 3 %; MCH 31.6 pg (25.0-35.0); MCHC 32.9 g/dL (31.0-37.0); Mean Platelet Volume 8.3; Monocytes # (A) 0.4 k/uL (0-1.0); Monocytes % (A) 3 %; Neutrophils # (A) 11.2 k/uL (1.3-7.7); Neutrophils % (A) 93 %; Platelet Count 158 k/uL (150-450); RBC 3.56 m/uL (4.30-5.90); WBC 12.1 k/uL (3.8-10.6)
[2024-05-24 18:57] LABS: Glucose,Whole Blood 106 mg/dL (70-110)
[2024-05-24 20:00] LABS: Glucose,Whole Blood 132 mg/dL (70-110)
[2024-05-24] MEDS: SENNOSIDES-DOCUSATE SODIUM 1 EACH TAB PO SCH (20:14)
[2024-05-24 21:00] LABS: Glucose,Whole Blood 146 mg/dL (70-110)
[2024-05-24 22:04] LABS: Glucose,Whole Blood 135 mg/dL (70-110)
[2024-05-24] MEDS: ONDANSETRON 4 MG/2 ML VIAL IVP PRN (22:45)
[2024-05-24 23:04] LABS: Glucose,Whole Blood 146 mg/dL (70-110)
[2024-05-24 23:58] LABS: Glucose,Whole Blood 130 mg/dL (70-110)
[2024-05-25 01:00] LABS: Glucose,Whole Blood 140 mg/dL (70-110)
[2024-05-25 01:58] LABS: Glucose,Whole Blood 133 mg/dL (70-110)
[2024-05-25 03:07] LABS: Glucose,Whole Blood 105 mg/dL (70-110)
[2024-05-25 04:06] LABS: Glucose,Whole Blood 134 mg/dL (70-110)
[2024-05-25 04:23] LABS: Basophils % (A) 0 %; Eosinophils % (A) 0 %; HCT 30.1 % (39.0-53.0); HGB 9.9 gm/dL (13.0-17.5); Lymphocytes # (A) 0.6 k/uL (1.0-4.8); Lymphocytes % (A) 7 %; MCH 31.8 pg (25.0-35.0); MCHC 32.9 g/dL (31.0-37.0); MCV 96.5 fL (80.0-100.0); Mean Platelet Volume 8.6; Monocytes # (A) 0.4 k/uL (0-1.0); Monocytes % (A) 4 %; Neutrophils # (A) 8.5 k/uL (1.3-7.7); Neutrophils % (A) 88 %; Platelet Count 133 k/uL (150-450); RBC 3.12 m/uL (4.30-5.90); RDW 12.1 % (11.5-15.5); WBC 9.7 k/uL (3.8-10.6)
[2024-05-25 04:29] LABS: Ionized Calcium 4.4 mg/dL (4.5-5.3)
[2024-05-25 04:38] LABS: ALT 10 U/L (4-49); AST 20 U/L (17-59); African American GFR (CKD) >90 (>60 ml/min/1.73 sqM); Albumin 3.3 g/dL (3.5-5.0); Alkaline Phosphatase 36 U/L (38-126); Anion Gap 6 mmol/L; Blood Urea Nitrogen 10 mg/dL (9-20); Calcium 7.7 mg/dL (8.4-10.2); Carbon Dioxide 23 mmol/L (22-30); Chloride 107 mmol/L (98-107); Glucose 118 mg/dL (74-99); Magnesium 2.2 mg/dL (1.6-2.3); Non-African American GFR(CKD) >90 (>60 ml/min/1.73 sqM); Potassium 4.1 mmol/L (3.5-5.1); Sodium 136 mmol/L (137-145); Total Bilirubin 1.1 mg/dL (0.2-1.3); Total Protein 5.2 g/dL (6.3-8.2)
[2024-05-25 05:05] LABS: Glucose,Whole Blood 109 mg/dL (70-110)
[2024-05-25 05:58] LABS: Glucose,Whole Blood 138 mg/dL (70-110)
[2024-05-25 06:50] LABS: Glucose,Whole Blood 128 mg/dL (70-110)
--- NOTE | 2024-05-25 07:40 | P.PN ---
Subjective Progress Note Date: 05/25/24 PROGRESS NOTE The patient is a 63-year-old male who is followed by Dr. Torrez who was admitted today to undergo coronary bypass grafting by Dr. Tipton. He was evaluated as an outpatient by Dr. Torrez and was found to have moderate area of stress-induced ischemia, he subsequently underwent cardiac catheterization that showed occluded LAD from the proximal to the midportion at the bifurcation of a large diagonal branch and significant disease in the OM. The right coronary artery had mild obstructive disease. He underwent CABG today with CHAMBERS to the OM and SUNDAY to the LAD. He is intubated and sedated, hemodynamically stable. He is in sinus mechanism on no vasopressors. He has good urinary output. Preoperatively his systolic function was normal by echocardiography. His coronary risks factor are positive for hypertension and hyperlipidemia May 25 The patient is extubated, sitting up in the chair, feeling well. He denies any significant dyspnea, dizziness or palpitations. He continues to be in sinus mechanism. He has soreness in the chest but he is using his incentive spirometry. He is on no vasopressors. His urinary output has been good. Medications: Aspirin, Lipitor 40 mg daily, Plavix 75 mg daily, metoprolol 12.5 mg twice a day PHYSICAL EXAMINATION: Blood pressure 94/50 heart rate 70 LUNGS: Decreased breath sounds at the bases HEART: Regular rate and rhythm, S1, S2. No S3. No systolic murmur ABDOMEN: Soft, nontender, no organomegaly EXTREMETIES: No edema LAB: Hemoglobin 9.9, BUN 10, creatinine 0.71, EKG with no acute ST segment changes IMPRESSION: 1. Status post CABG with CHAMBERS to the OM and SUNDAY to the LAD 2. History of hyperlipidemia 3. History of hypertension PLAN: 1. Continue present therapy 2. Continue incentive spirometry 3. Increase physical activity 4. Depending on his blood pressure and heart rate adjust beta-maico dose Objective - Vital Signs Vital signs: Vital Signs Temp 98.1 F 05/24/24 19:00 Pulse 82 05/25/24 07:00 Resp 18 05/25/24 07:00 BP 91/57 05/25/24 07:00 Pulse Ox 97 05/25/24 07:00 FiO2 50 05/24/24 16:00 Intake & Output 05/24/24 05/25/24 05/25/24 18:59 06:59 18:59 Intake Total 1228.297 953.319 Output Total 1510 1490 Balance -281.703 -536.681 Weight 108.1 kg Intake: IV 227 348 CO/CI 120 240 Pressure bag 54 108 Intake, IV Titration 1001.297 605.319 Amount ACETAMINOPHEN IV (For NPO 100 ) 1,000 mg In Empty Bag 1 bag @ 400 mls/hr IVPB Q6HR G[facility] Rx#:[id number] Albumin Human 5% 250 ml 500 In Empty Bag 1 bag @ 250 mls/hr IVPB Q1HR PRN Rx#: [id number] Dexmedetomidine/0.9% NaCl 16.138 (Pmx) 400 mcg In Empty Bag 1 bag @ Titrate IV . Q0M GILDA Rx#:[id number] Insulin Regular 100 unit 6.119 5.319 In Sodium Chloride 0.9% 100 ml @ Per Protocol IV .Q0M GILDA Rx#:[id number] Sodium Chloride 0.9% 1, 300 600 000 ml @ 30 mls/hr IV . Q24H G[facility] Rx#:[id number] propofoL 1,000 mg In 79.04 Empty Bag 1 bag @ Titrate IV .Q0M GILDA Rx#: [id number] Output: Chest Tube Drainage 660 930 Left Pleural 260 180 Mediastinal 210 270 Right Pleural 190 480 Urine 550 560 Estimated Blood Loss 300 Other: Voiding Method Indwelling Catheter Indwelling Catheter ABP, PAP, CO, CI - Last Documented Arterial Blood Pressure 90/48 Pulmonary Artery Pressure 39/12 Cardiac Output 6.8 Cardiac Index 3.1 - Labs CBC & Chem 7: 05/25/24 04:05 05/25/24 04:05 Labs: Abnormal Lab Results - Last 24 Hours (Table) 05/20/24 05/24/24 05/24/24 Range/Units 15:57 08:47 11:01 WBC (3.8-10.6) k/uL RBC (4.30-5.90) m/uL Hgb (13.0-17.5) gm/dL Hct (39.0-53.0) % Plt Count (150-450) k/uL Neutrophils # (1.3-7.7) k/uL Lymphocytes # (1.0-4.8) k/uL ABG pO2 288 H 160 H (83-108) mmHg ABG HCO3 26 H 26 H (21-25) mmol/L ABG Total CO2 (19-24) mmol/L ABG O2 Saturation 99.1 H 98.7 H (94-97) % ABG Ionized Calcium 4.4 L (4.5-5.3) mg/dL ABG Glucose 121 H 120 H (75-99) mg/dL Hemoglobin 12.0 L (13.0-17.5) gm/dL Sodium (137-145) mmol/L Chloride (98-107) mmol/L Glucose (74-99) mg/dL POC Glucose (mg/dL) (70-110) mg/dL Calcium (8.4-10.2) mg/dL Ionized Calcium Aly (4.5-5.3) mg/dL Alkaline Phosphatase (38-126) U/L Total Protein (6.3-8.2) g/dL Albumin (3.5-5.0) g/dL Arterial Blood Glucose 121 H 120 H (75-99) mg/dL Crossmatch See Detail 05/24/24 05/24/24 05/24/24 Range/Units 11:29 12:10 13:19 WBC 15.4 H (3.8-10.6) k/uL RBC 3.52 L (4.30-5.90) m/uL Hgb 11.5 L D (13.0-17.5) gm/dL Hct 33.3 L (39.0-53.0) % Plt Count (150-450) k/uL Neutrophils # 13.9 H (1.3-7.7) k/uL Lymphocytes # (1.0-4.8) k/uL ABG pO2 171 H 116 H (83-108) mmHg ABG HCO3 (21-25) mmol/L ABG Total CO2 (19-24) mmol/L ABG O2 Saturation 98.9 H 98.7 H (94-97) % ABG Ionized Calcium 4.4 L 4.4 L (4.5-5.3) mg/dL ABG Glucose 118 H 125 H (75-99) mg/dL Hemoglobin 11.4 L 11.3 L (13.0-17.5) gm/dL Sodium (137-145) mmol/L Chloride (98-107) mmol/L Glucose (74-99) mg/dL POC Glucose (mg/dL) (70-110) mg/dL Calcium (8.4-10.2) mg/dL Ionized Calcium Aly (4.5-5.3) mg/dL Alkaline Phosphatase (38-126) U/L Total Protein (6.3-8.2) g/dL Albumin (3.5-5.0) g/dL Arterial Blood Glucose 118 H 125 H (75-99) mg/dL Crossmatch 05/24/24 05/24/24 05/24/24 Range/Units 13:19 13:27 13:40 WBC (3.8-10.6) k/uL RBC (4.30-5.90) m/uL Hgb (13.0-17.5) gm/dL Hct (39.0-53.0) % Plt Count (150-450) k/uL Neutrophils # (1.3-7.7) k/uL Lymphocytes # (1.0-4.8) k/uL ABG pO2 298 H (83-108) mmHg ABG HCO3 (21-25) mmol/L ABG Total CO2 26 H (19-24) mmol/L ABG O2 Saturation 100.0 H (94-97) % ABG Ionized Calcium (4.5-5.3) mg/dL ABG Glucose (75-99) mg/dL Hemoglobin 11.5 L (13.0-17.5) gm/dL Sodium 135 L (137-145) mmol/L Chloride 108 H (98-107) mmol/L Glucose 121 H (74-99) mg/dL POC Glucose (mg/dL) 132 H (70-110) mg/dL Calcium 7.6 L (8.4-10.2) mg/dL Ionized Calcium Aly (4.5-5.3) mg/dL Alkaline Phosphatase (38-126) U/L Total Protein 4.9 L (6.3-8.2) g/dL Albumin 3.0 L (3.5-5.0) g/dL Arterial Blood Glucose (75-99) mg/dL Crossmatch 05/24/24 05/24/24 05/24/24 Range/Units 14:04 14:57 15:13 WBC 11.9 H (3.8-10.6) k/uL RBC 3.49 L (4.30-5.90) m/uL Hgb 11.2 L (13.0-17.5) gm/dL Hct 33.3 L (39.0-53.0) % Plt Count 146 L (150-450) k/uL Neutrophils # 10.7 H (1.3-7.7) k/uL Lymphocytes # 0.6 L (1.0-4.8) k/uL ABG pO2 (83-108) mmHg ABG HCO3 (21-25) mmol/L ABG Total CO2 (19-24) mmol/L ABG O2 Saturation (94-97) % ABG Ionized Calcium (4.5-5.3) mg/dL ABG Glucose (75-99) mg/dL Hemoglobin (13.0-17.5) gm/dL Sodium (137-145) mmol/L Chloride (98-107) mmol/L Glucose (74-99) mg/dL POC Glucose (mg/dL) 139 H 129 H (70-110) mg/dL Calcium (8.4-10.2) mg/dL Ionized Calcium Aly (4.5-5.3) mg/dL Alkaline Phosphatase (38-126) U/L Total Protein (6.3-8.2) g/dL Albumin (3.5-5.0) g/dL Arterial Blood Glucose (75-99) mg/dL Crossmatch 05/24/24 05/24/24 05/24/24 Range/Units 15:54 16:13 16:59 WBC (3.8-10.6) k/uL RBC (4.30-5.90) m/uL Hgb (13.0-17.5) gm/dL Hct (39.0-53.0) % Plt Count (150-450) k/uL Neutrophils # (1.3-7.7) k/uL Lymphocytes # (1.0-4.8) k/uL ABG pO2 (83-108) mmHg ABG HCO3 (21-25) mmol/L ABG Total CO2 27 H (19-24) mmol/L ABG O2 Saturation 97.4 H (94-97) % ABG Ionized Calcium (4.5-5.3) mg/dL ABG Glucose (75-99) mg/dL Hemoglobin 12.1 L (13.0-17.5) gm/dL Sodium (137-145) mmol/L Chloride (98-107) mmol/L Glucose (74-99) mg/dL POC Glucose (mg/dL) 131 H 141 H (70-110) mg/dL Calcium (8.4-10.2) mg/dL Ionized Calcium Aly (4.5-5.3) mg/dL Alkaline Phosphatase (38-126) U/L Total Protein (6.3-8.2) g/dL Albumin (3.5-5.0) g/dL Arterial Blood Glucose (75-99) mg/dL Crossmatch 05/24/24 05/24/24 05/24/24 Range/Units 17:59 18:00 19:58 WBC 12.1 H (3.8-10.6) k/uL RBC 3.56 L (4.30-5.90) m/uL Hgb 11.2 L (13.0-17.5) gm/dL Hct 34.2 L (39.0-53.0) % Plt Count (150-450) k/uL Neutrophils # 11.2 H (1.3-7.7) k/uL Lymphocytes # 0.3 L (1.0-4.8) k/uL ABG pO2 (83-108) mmHg ABG HCO3 (21-25) mmol/L ABG Total CO2 (19-24) mmol/L ABG O2 Saturation (94-97) % ABG Ionized Calcium (4.5-5.3) mg/dL ABG Glucose (75-99) mg/dL Hemoglobin (13.0-17.5) gm/dL Sodium (137-145) mmol/L Chloride (98-107) mmol/L Glucose (74-99) mg/dL POC Glucose (mg/dL) 126 H 132 H (70-110) mg/dL Calcium (8.4-10.2) mg/dL Ionized Calcium Aly (4.5-5.3) mg/dL Alkaline Phosphatase (38-126) U/L Total Protein (6.3-8.2) g/dL Albumin (3.5-5.0) g/dL Arterial Blood Glucose (75-99) mg/dL Crossmatch 05/24/24 05/24/24 05/24/24 Range/Units 20:58 22:02 23:01 WBC (3.8-10.6) k/uL RBC (4.30-5.90) m/uL Hgb (13.0-17.5) gm/dL Hct (39.0-53.0) % Plt Count (150-450) k/uL Neutrophils # (1.3-7.7) k/uL Lymphocytes # (1.0-4.8) k/uL ABG pO2 (83-108) mmHg ABG HCO3 (21-25) mmol/L ABG Total CO2 (19-24) mmol/L ABG O2 Saturation (94-97) % ABG Ionized Calcium (4.5-5.3) mg/dL ABG Glucose (75-99) mg/dL Hemoglobin (13.0-17.5) gm/dL Sodium (137-145) mmol/L Chloride (98-107) mmol/L Glucose (74-99) mg/dL POC Glucose (mg/dL) 146 H 135 H 146 H (70-110) mg/dL Calcium (8.4-10.2) mg/dL Ionized Calcium Aly (4.5-5.3) mg/dL Alkaline Phosphatase (38-126) U/L Total Protein (6.3-8.2) g/dL Albumin (3.5-5.0) g/dL Arterial Blood Glucose (75-99) mg/dL Crossmatch 05/24/24 05/25/24 05/25/24 Range/Units 23:56 00:59 01:56 WBC (3.8-10.6) k/uL RBC (4.30-5.90) m/uL Hgb (13.0-17.5) gm/dL Hct (39.0-53.0) % Plt Count (150-450) k/uL Neutrophils # (1.3-7.7) k/uL Lymphocytes # (1.0-4.8) k/uL ABG pO2 (83-108) mmHg ABG HCO3 (21-25) mmol/L ABG Total CO2 (19-24) mmol/L ABG O2 Saturation (94-97) % ABG Ionized Calcium (4.5-5.3) mg/dL ABG Glucose (75-99) mg/dL Hemoglobin (13.0-17.5) gm/dL Sodium (137-145) mmol/L Chloride (98-107) mmol/L Glucose (74-99) mg/dL POC Glucose (mg/dL) 130 H 140 H 133 H (70-110) mg/dL Calcium (8.4-10.2) mg/dL Ionized Calcium Aly (4.5-5.3) mg/dL Alkaline Phosphatase (38-126) U/L Total Protein (6.3-8.2) g/dL Albumin (3.5-5.0) g/dL Arterial Blood Glucose (75-99) mg/dL Crossmatch 05/25/24 05/25/24 05/25/24 Range/Units 04:04 04:05 04:05 WBC (3.8-10.6) k/uL RBC 3.12 L (4.30-5.90) m/uL Hgb 9.9 L (13.0-17.5) gm/dL Hct 30.1 L (39.0-53.0) % Plt Count 133 L (150-450) k/uL Neutrophils # 8.5 H (1.3-7.7) k/uL Lymphocytes # 0.6 L (1.0-4.8) k/uL ABG pO2 (83-108) mmHg ABG HCO3 (21-25) mmol/L ABG Total CO2 (19-24) mmol/L ABG O2 Saturation (94-97) % ABG Ionized Calcium (4.5-5.3) mg/dL ABG Glucose (75-99) mg/dL Hemoglobin (13.0-17.5) gm/dL Sodium 136 L (137-145) mmol/L Chloride (98-107) mmol/L Glucose 118 H (74-99) mg/dL POC Glucose (mg/dL) 134 H (70-110) mg/dL Calcium 7.7 L (8.4-10.2) mg/dL Ionized Calcium Aly 4.4 L (4.5-5.3) mg/dL Alkaline Phosphatase 36 L (38-126) U/L Total Protein 5.2 L (6.3-8.2) g/dL Albumin 3.3 L (3.5-5.0) g/dL Arterial Blood Glucose (75-99) mg/dL Crossmatch 05/25/24 05/25/24 Range/Units 05:56 06:48 WBC (3.8-10.6) k/uL RBC (4.30-5.90) m/uL Hgb (13.0-17.5) gm/dL Hct (39.0-53.0) % Plt Count (150-450) k/uL Neutrophils # (1.3-7.7) k/uL Lymphocytes # (1.0-4.8) k/uL ABG pO2 (83-108) mmHg ABG HCO3 (21-25) mmol/L ABG Total CO2 (19-24) mmol/L ABG O2 Saturation (94-97) % ABG Ionized Calcium (4.5-5.3) mg/dL ABG Glucose (75-99) mg/dL Hemoglobin (13.0-17.5) gm/dL Sodium (137-145) mmol/L Chloride (98-107) mmol/L Glucose (74-99) mg/dL POC Glucose (mg/dL) 138 H 128 H (70-110) mg/dL Calcium (8.4-10.2) mg/dL Ionized Calcium Aly (4.5-5.3) mg/dL Alkaline Phosphatase (38-126) U/L Total Protein (6.3-8.2) g/dL Albumin (3.5-5.0) g/dL Arterial Blood Glucose (75-99) mg/dL Crossmatch
[2024-05-25 07:59] LABS: Glucose,Whole Blood 138 mg/dL (70-110)
--- NOTE | 2024-05-25 08:14 | XR ---
EXAMINATION TYPE: XR chest 1V portable DATE OF EXAM: 05/25/2024 COMPARISON: 05/24/2024 INDICATION: Postop cardiac surgery TECHNIQUE: Single frontal view of the chest is obtained. FINDINGS: The heart size is enlarged. The pulmonary vasculature is normal. Mild right upper lobe infiltrate is present correlate for atelectasis. Bilateral chest tubes are present. No pneumothorax is evident. Mediastinal tube is present. Hudson-Mallorie catheter is in the right main pulmonary artery. Endotracheal tube and nasogastric tube removed. IMPRESSION: 1. Developing right upper lobe infiltrate. Correlate for atelectasis and. 2 multiple lines and cathet ers discussed above [facility], , 05/25/2024 8:11 AM
[2024-05-25] MEDS: KETOROLAC 15 MG/ML 1 ML VIAL IVP SCH (08:38)
[2024-05-25] MEDS: PANTOPRAZOLE 40 MG/10 ML VIAL IVP SCH (08:39)
[2024-05-25] MEDS: ASPIRIN 325 MG TAB PO SCH (08:52)
[2024-05-25] MEDS: ATORVASTATIN 40 MG TAB PO SCH (08:52)
[2024-05-25] MEDS: CLOPIDOGREL 75 MG TAB PO SCH (08:52)
[2024-05-25] MEDS: THIAMINE 100 MG TAB PO SCH (08:53)
[2024-05-25] MEDS: FOLIC ACID 1 MG TAB PO SCH (08:53)
--- NOTE | 2024-05-25 08:53 | P.PN ---
Subjective Progress Note Date: 05/25/24 Principal diagnosis: Coronary artery disease, unstable angina. Previous medical history of hypertension, hyperlipidemia, basal cell skin cancer, daily EtOH use, previous tobacco dependence, and family history of premature coronary artery disease with mother from [place] at 59 years old POD #1 off-pump coronary artery bypass graft x 2 with right internal mammary artery to left anterior descending artery and left internal mammary artery to obtuse marginal with ligation of the left atrial appendage with 35mm AtriCure clip Postoperative acucte blood loss anemia and thrombocytopenia, expected given hemodilution The patient was seen and examined this morning sitting up in a recliner in no acute distress. He was successfully extubated yesterday at 16:20. Remains in s inus rhythm, hemodynamically stable although blood pressure is a bit soft. States pain is controlled on current medication regimen, denies shortness of breath. Remains on 1 L nasal cannula with oxygen saturation in the high 90s. Right internal jugular Theodore/Cordis, right radial arterial line, medi astinal/right/left pleural chest tubes all remain. Chest x-ray, labs reviewed. No other new concerns. Objective - Vital Signs Vital signs: Vital Signs Temp 98.1 F 05/24/24 19:00 Pulse 82 05/25/24 08:08 Resp 26 H 05/25/24 08:00 BP 91/57 05/25/24 07:00 Pulse Ox 100 05/25/24 08:00 FiO2 50 05/24/24 16:00 Intake & Output 05/24/24 05/25/24 05/25/24 18:59 06:59 18:59 Intake Total 1228.297 953.319 89 Output Total 1510 1490 205 Balance -281.703 -536.681 -116 Weight 108.1 kg Intake: IV 227 348 89 CO/CI 120 240 30 Pressure bag 54 108 9 Sodium Chloride 0.9% 50 50 ml @ 0 mls/hr IV .STK-MED ONE with ceFAZolin 2,000 mg Rx#:[id number] Intake, IV Titration 1001.297 605.319 0 Amount ACETAMINOPHEN IV (For NPO 100 ) 1,000 mg In Empty Bag 1 bag @ 400 mls/hr IVPB Q6HR COUNTS INCLUDE 234 BEDS AT THE [facility] Rx#:[id number] Albumin Human 5% 250 ml 500 In Empty Bag 1 bag @ 250 mls/hr IVPB Q1HR PRN Rx#: [id number] Dexmedetomidine/0.9% NaCl 16.138 (Pmx) 400 mcg In Empty Bag 1 bag @ Titrate IV . Q0M [facility] Rx#:[id number] Insulin Regular 100 unit 6.119 5.319 0 In Sodium Chloride 0.9% 100 ml @ Per Protocol IV .Q0M [facility] Rx#:[id number] Sodium Chloride 0.9% 1, 300 600 000 ml @ 30 mls/hr IV . Q24H [facility] Rx#:[id number] propofoL 1,000 mg In 79.04 Empty Bag 1 bag @ Titrate IV .Q0M [facility] Rx#: [id number] Output: Chest Tube Drainage 660 930 30 Left Pleural 260 180 10 Mediastinal 210 270 10 Right Pleural 190 480 10 Urine 550 560 175 Estimated Blood Loss 300 Other: Voiding Method Indwelling Catheter Indwelling Catheter ABP, PAP, CO, CI - Last Documented Arterial Blood Pressure 123/45 Pulmonary Artery Pressure 23/7 Cardiac Output 8.1 Cardiac Index 3.7 - Exam CONSTITUTIONAL: Appears comfortable, cooperative, no acute distress RESPIRATORY: Lungs sounds diminished bilaterally. Respirations even, nonlabored. Currently on 1 L nasal cannula with oxygen saturation 97%. Able to achieve 500-750 mL on incentive spirometry. Strong cough. CARDIOVASCULAR: S1, S2 present. Regular rate and rhythm, sinus rhythm on telemetry. Sternum stable. Palpable peripheral pulses bilaterally. No edema present. No calf pain or tenderness noted. Heart hugger in place with patient demonstrating appropriate use. Antiembolism stockings, SCDs present. GASTROINTESTINAL: Abdomen soft, nontender, nondistended. Active bowel sounds present 4 quadrants. Tolerating clear liquids. Positive belching, negative flatus GENITOURINARY: Patino present draining clear, yellow urine. Output overnight 35-75 mL per hour INTEGUMENTARY: Skin is warm and dry with evidence of good perfusion. Anterior chest incision well approximated and covered with dry intact dressing NEUROLOGIC: Cranial nerves II through XII intact MUSKULOSKELETAL: Able to move all extremities, strength equal bilaterally, gait normal PSYCHIATRIC: Alert and oriented to person place and time, appropriate affect, intact judgment and insight INVASIVE LINES AND TUBES: Mediastinal/left/right pleural chest tubes present and connected to wall suction, minimal air leak present in mediastinal tube with coughing. Mediastinal tube with 160 mL serosanguineous drainage overnight, 500 mL since surgery. Left pleural chest tube with 130 mL serosanguineous drainage overnight, 300 mL since surgery. Right pleural chest tube with 380 mL serosan guineous drainage overnight, 800 mL since surgery. Right internal jugular Theodore/Cordis, right radial arterial line present. Last CO/CI 6.3/2.9, PA 28/8, CVP 3. - Allied health notes Allied health notes reviewed: nursing - Labs CBC & Chem 7: 05/25/24 04:05 05/25/24 04:05 Labs: Abnormal Lab Results - Last 24 Hours (Table) 05/20/24 05/24/24 05/24/24 Range/Units 15:57 08:47 11:01 WBC (3.8-10.6) k/uL RBC (4.30-5.90) m/uL Hgb (13.0-17.5) gm/dL Hct (39.0-53.0) % Plt Count (150-450) k/uL Neutrophils # (1.3-7.7) k/uL Lymphocytes # (1.0-4.8) k/uL ABG pO2 288 H 160 H (83-108) mmHg ABG HCO3 26 H 26 H (21-25) mmol/L ABG Total CO2 (19-24) mmol/L ABG O2 Saturation 99.1 H 98.7 H (94-97) % ABG Ionized Calcium 4.4 L (4.5-5.3) mg/dL ABG Glucose 121 H 120 H (75-99) mg/dL Hemoglobin 12.0 L (13.0-17.5) gm/dL Sodium (137-145) mmol/L Chloride (98-107) mmol/L Glucose (74-99) mg/dL POC Glucose (mg/dL) (70-110) mg/dL Calcium (8.4-10.2) mg/dL Ionized Calcium Aly (4.5-5.3) mg/dL Alkaline Phosphatase (38-126) U/L Total Protein (6.3-8.2) g/dL Albumin (3.5-5.0) g/dL Arterial Blood Glucose 121 H 120 H (75-99) mg/dL Crossmatch See Detail 05/24/24 05/24/24 05/24/24 Range/Units 11:29 12:10 13:19 WBC 15.4 H (3.8-10.6) k/uL RBC 3.52 L (4.30-5.90) m/uL Hgb 11.5 L D (13.0-17.5) gm/dL Hct 33.3 L (39.0-53.0) % Plt Count (150-450) k/uL Neutrophils # 13.9 H (1.3-7.7) k/uL Lymphocytes # (1.0-4.8) k/uL ABG pO2 171 H 116 H (83-108) mmHg ABG HCO3 (21-25) mmol/L ABG Total CO2 (19-24) mmol/L ABG O2 Saturation 98.9 H 98.7 H (94-97) % ABG Ionized Calcium 4.4 L 4.4 L (4.5-5.3) mg/dL ABG Glucose 118 H 125 H (75-99) mg/dL Hemoglobin 11.4 L 11.3 L (13.0-17.5) gm/dL Sodium (137-145) mmol/L Chloride (98-107) mmol/L Glucose (74-99) mg/dL POC Glucose (mg/dL) (70-110) mg/dL Calcium (8.4-10.2) mg/dL Ionized Calcium Aly (4.5-5.3) mg/dL Alkaline Phosphatase (38-126) U/L Total Protein (6.3-8.2) g/dL Albumin (3.5-5.0) g/dL Arterial Blood Glucose 118 H 125 H (75-99) mg/dL Crossmatch 05/24/24 05/24/24 05/24/24 Range/Units 13:19 13:27 13:40 WBC (3.8-10.6) k/uL RBC (4.30-5.90) m/uL Hgb (13.0-17.5) gm/dL Hct (39.0-53.0) % Plt Count (150-450) k/uL Neutrophils # (1.3-7.7) k/uL Lymphocytes # (1.0-4.8) k/uL ABG pO2 298 H (83-108) mmHg ABG HCO3 (21-25) mmol/L ABG Total CO2 26 H (19-24) mmol/L ABG O2 Saturation 100.0 H (94-97) % ABG Ionized Calcium (4.5-5.3) mg/dL ABG Glucose (75-99) mg/dL Hemoglobin 11.5 L (13.0-17.5) gm/dL Sodium 135 L (137-145) mmol/L Chloride 108 H (98-107) mmol/L Glucose 121 H (74-99) mg/dL POC Glucose (mg/dL) 132 H (70-110) mg/dL Calcium 7.6 L (8.4-10.2) mg/dL Ionized Calcium Aly (4.5-5.3) mg/dL Alkaline Phosphatase (38-126) U/L Total Protein 4.9 L (6.3-8.2) g/dL Albumin 3.0 L (3.5-5.0) g/dL Arterial Blood Glucose (75-99) mg/dL Crossmatch 05/24/24 05/24/24 05/24/24 Range/Units 14:04 14:57 15:13 WBC 11.9 H (3.8-10.6) k/uL RBC 3.49 L (4.30-5.90) m/uL Hgb 11.2 L (13.0-17.5) gm/dL Hct 33.3 L (39.0-53.0) % Plt Count 146 L (150-450) k/uL Neutrophils # 10.7 H (1.3-7.7) k/uL Lymphocytes # 0.6 L (1.0-4.8) k/uL ABG pO2 (83-108) mmHg ABG HCO3 (21-25) mmol/L ABG Total CO2 (19-24) mmol/L ABG O2 Saturation (94-97) % ABG Ionized Calcium (4.5-5.3) mg/dL ABG Glucose (75-99) mg/dL Hemoglobin (13.0-17.5) gm/dL Sodium (137-145) mmol/L Chloride (98-107) mmol/L Glucose (74-99) mg/dL POC Glucose (mg/dL) 139 H 129 H (70-110) mg/dL Calcium (8.4-10.2) mg/dL Ionized Calcium Aly (4.5-5.3) mg/dL Alkaline Phosphatase (38-126) U/L Total Protein (6.3-8.2) g/dL Albumin (3.5-5.0) g/dL Arterial Blood Glucose (75-99) mg/dL Crossmatch 05/24/24 05/24/24 05/24/24 Range/Units 15:54 16:13 16:59 WBC (3.8-10.6) k/uL RBC (4.30-5.90) m/uL Hgb (13.0-17.5) gm/dL Hct (39.0-53.0) % Plt Count (150-450) k/uL Neutrophils # (1.3-7.7) k/uL Lymphocytes # (1.0-4.8) k/uL ABG pO2 (83-108) mmHg ABG HCO3 (21-25) mmol/L ABG Total CO2 27 H (19-24) mmol/L ABG O2 Saturation 97.4 H (94-97) % ABG Ionized Calcium (4.5-5.3) mg/dL ABG Glucose (75-99) mg/dL Hemoglobin 12.1 L (13.0-17.5) gm/dL Sodium (137-145) mmol/L Chloride (98-107) mmol/L Glucose (74-99) mg/dL POC Glucose (mg/dL) 131 H 141 H (70-110) mg/dL Calcium (8.4-10.2) mg/dL Ionized Calcium Aly (4.5-5.3) mg/dL Alkaline Phosphatase (38-126) U/L Total Protein (6.3-8.2) g/dL Albumin (3.5-5.0) g/dL Arterial Blood Glucose (75-99) mg/dL Crossmatch 05/24/24 05/24/24 05/24/24 Range/Units 17:59 18:00 19:58 WBC 12.1 H (3.8-10.6) k/uL RBC 3.56 L (4.30-5.90) m/uL Hgb 11.2 L (13.0-17.5) gm/dL Hct 34.2 L (39.0-53.0) % Plt Count (150-450) k/uL Neutrophils # 11.2 H (1.3-7.7) k/uL Lymphocytes # 0.3 L (1.0-4.8) k/uL ABG pO2 (83-108) mmHg ABG HCO3 (21-25) mmol/L ABG Total CO2 (19-24) mmol/L ABG O2 Saturation (94-97) % ABG Ionized Calcium (4.5-5.3) mg/dL ABG Glucose (75-99) mg/dL Hemoglobin (13.0-17.5) gm/dL Sodium (137-145) mmol/L Chloride (98-107) mmol/L Glucose (74-99) mg/dL POC Glucose (mg/dL) 126 H 132 H (70-110) mg/dL Calcium (8.4-10.2) mg/dL Ionized Calcium Aly (4.5-5.3) mg/dL Alkaline Phosphatase (38-126) U/L Total Protein (6.3-8.2) g/dL Albumin (3.5-5.0) g/dL Arterial Blood Glucose (75-99) mg/dL Crossmatch 05/24/24 05/24/24 05/24/24 Range/Units 20:58 22:02 23:01 WBC (3.8-10.6) k/uL RBC (4.30-5.90) m/uL Hgb (13.0-17.5) gm/dL Hct (39.0-53.0) % Plt Count (150-450) k/uL Neutrophils # (1.3-7.7) k/uL Lymphocytes # (1.0-4.8) k/uL ABG pO2 (83-108) mmHg ABG HCO3 (21-25) mmol/L ABG Total CO2 (19-24) mmol/L ABG O2 Saturation (94-97) % ABG Ionized Calcium (4.5-5.3) mg/dL ABG Glucose (75-99) mg/dL Hemoglobin (13.0-17.5) gm/dL Sodium (137-145) mmol/L Chloride (98-107) mmol/L Glucose (74-99) mg/dL POC Glucose (mg/dL) 146 H 135 H 146 H (70-110) mg/dL Calcium (8.4-10.2) mg/dL Ionized Calcium Aly (4.5-5.3) mg/dL Alkaline Phosphatase (38-126) U/L Total Protein (6.3-8.2) g/dL Albumin (3.5-5.0) g/dL Arterial Blood Glucose (75-99) mg/dL Crossmatch 05/24/24 05/25/24 05/25/24 Range/Units 23:56 00:59 01:56 WBC (3.8-10.6) k/uL RBC (4.30-5.90) m/uL Hgb (13.0-17.5) gm/dL Hct (39.0-53.0) % Plt Count (150-450) k/uL Neutrophils # (1.3-7.7) k/uL Lymphocytes # (1.0-4.8) k/uL ABG pO2 (83-108) mmHg ABG HCO3 (21-25) mmol/L ABG Total CO2 (19-24) mmol/L ABG O2 Saturation (94-97) % ABG Ionized Calcium (4.5-5.3) mg/dL ABG Glucose (75-99) mg/dL Hemoglobin (13.0-17.5) gm/dL Sodium (137-145) mmol/L Chloride (98-107) mmol/L Glucose (74-99) mg/dL POC Glucose (mg/dL) 130 H 140 H 133 H (70-110) mg/dL Calcium (8.4-10.2) mg/dL Ionized Calcium Aly (4.5-5.3) mg/dL Alkaline Phosphatase (38-126) U/L Total Protein (6.3-8.2) g/dL Albumin (3.5-5.0) g/dL Arterial Blood Glucose (75-99) mg/dL Crossmatch 05/25/24 05/25/24 05/25/24 Range/Units 04:04 04:05 04:05 WBC (3.8-10.6) k/uL RBC 3.12 L (4.30-5.90) m/uL Hgb 9.9 L (13.0-17.5) gm/dL Hct 30.1 L (39.0-53.0) % Plt Count 133 L (150-450) k/uL Neutrophils # 8.5 H (1.3-7.7) k/uL Lymphocytes # 0.6 L (1.0-4.8) k/uL ABG pO2 (83-108) mmHg ABG HCO3 (21-25) mmol/L ABG Total CO2 (19-24) mmol/L ABG O2 Saturation (94-97) % ABG Ionized Calcium (4.5-5.3) mg/dL ABG Glucose (75-99) mg/dL Hemoglobin (13.0-17.5) gm/dL Sodium 136 L (137-145) mmol/L Chloride (98-107) mmol/L Glucose 118 H (74-99) mg/dL POC Glucose (mg/dL) 134 H (70-110) mg/dL Calcium 7.7 L (8.4-10.2) mg/dL Ionized Calcium Aly 4.4 L (4.5-5.3) mg/dL Alkaline Phosphatase 36 L (38-126) U/L Total Protein 5.2 L (6.3-8.2) g/dL Albumin 3.3 L (3.5-5.0) g/dL Arterial Blood Glucose (75-99) mg/dL Crossmatch 05/25/24 05/25/24 05/25/24 Range/Units 05:56 06:48 07:58 WBC (3.8-10.6) k/uL RBC (4.30-5.90) m/uL Hgb (13.0-17.5) gm/dL Hct (39.0-53.0) % Plt Count (150-450) k/uL Neutrophils # (1.3-7.7) k/uL Lymphocytes # (1.0-4.8) k/uL ABG pO2 (83-108) mmHg ABG HCO3 (21-25) mmol/L ABG Total CO2 (19-24) mmol/L ABG O2 Saturation (94-97) % ABG Ionized Calcium (4.5-5.3) mg/dL ABG Glucose (75-99) mg/dL Hemoglobin (13.0-17.5) gm/dL Sodium (137-145) mmol/L Chloride (98-107) mmol/L Glucose (74-99) mg/dL POC Glucose (mg/dL) 138 H 128 H 138 H (70-110) mg/dL Calcium (8.4-10.2) mg/dL Ionized Calcium Aly (4.5-5.3) mg/dL Alkaline Phosphatase (38-126) U/L Total Protein (6.3-8.2) g/dL Albumin (3.5-5.0) g/dL Arterial Blood Glucose (75-99) mg/dL Crossmatch - Imaging and Cardiology Chest x-ray: report reviewed, image reviewed Assessment and Plan Assessment: Coronary artery disease, unstable angina, status post off-pump coronary artery bypass graft x 2 Postoperative acucte blood loss anemia and thrombocytopenia, expected given hemodilution History of hypertension Hyperlipidemia, treated, cholesterol 275, LDL 148, TG 335 Basal cell skin cancer Daily EtOH use Previous tobacco dependence, preoperative FEV1 87% of predicted Family history of premature coronary artery disease with mother from [place] at 60 years old Plan: Continue to maximize medical therapy with aspirin, statin, Plavix, beta-maico. Will increase beta-maico therapy as tolerated Discontinue IV nitro Wean O2 as tolerated. Encourage incentive spirometry use 10 times every hour while awake. Bronchodilators per pulmonology Increase activity, ambulate as tolerated. PT/OT/cardiac rehab consulted Will monitor daily labs and x-rays. Electrolyte replacement per protocol GI/DVT prophylaxis Insulin management per internal medicine, patient is not diabetic, preoperative hemoglobin A1c 5.6%. Patient should remain on IV continuous insulin for 48 hours, then transition to subcutaneous insulin per protocol Pain control per current medication regimen. Will add Toradol Discontinue Theodore, connect Cordis to continuous CVP monitoring Continue chest tubes for another 24 hours, monitor output Continue Patino catheter for another 24 hours, continue to record strict accurate intake and output Daily weights More recommendations to follow as patient progresses
[2024-05-25] MEDS: METOPROLOL TARTRATE 12.5 MG TAB PO SCH (08:54)
[2024-05-25] MEDS ORDERED: MAGNESIUM HYDROXIDE 2,400 MG/30 ML CUP PO PRN (09:00)
[2024-05-25] MEDS ORDERED: bisacodyL 10 MG SUPP RECTAL PRN (09:00)
[2024-05-25 09:17] LABS: Glucose,Whole Blood 179 mg/dL (70-110)
[2024-05-25 10:02] LABS: Glucose,Whole Blood 126 mg/dL (70-110)
[2024-05-25 10:28] VITALS: BMI 32.3
[2024-05-25] MEDS ORDERED: ALBUMIN HUMAN 5% 500 ML in EMPTY BAG 1 BAG IVPB ONE (10:33)
[2024-05-25] MEDS: ALBUMIN HUMAN 5% 250 ML in EMPTY BAG 1 BAG IVPB SCH (10:45)
--- NOTE | 2024-05-25 11:37 | P.PN ---
Subjective Progress Note Date: 05/25/24 This is a 63-year-old male patient who underwent coronary artery bypass surgery and the patient is being seen in the intensive care unit postop. The patient had a stress-induced ischemia the patient underwent cardiac catheterization and the patient was found to have occluded LAD from proximal to midportion at the bifurcation of a large diagonal branch and significant disease involving the OM. The right coronary artery disease also showed mild obstructive disease. The patient underwent coronary bypass surgery with CHAMBERS to OM and SUNDAY to LAD. The patient remains intubated on the mechanical ventilator. At this point in time, the patient is sedated on propofol which is running at 40 mcg/kg/min. The patient is on mechanical ventilator on assist-control mode rate of 16, tidal volume of 550, FiO2 of 100% with a PEEP of 10. Blood gas showed a pH of 7.4 with a pCO2 of 40 and pO2 of 298 and accordingly the FiO2 was dropped down to 60%. Postop chest x-ray was noted and the patient has a right pleural and left pleural and the mediastinal chest tube. ET tube is in a good location. The patient also has Bloomfield-Mallorie catheter in place. There is a left basilar atelectasis/pleural effusion noted. The cardiac output currently is at 4.0 with an index of 2.8. PA pressure 25/40. He is on no pressors. He is on insulin running at 1 unit an hour and the patient is in normal sinus rhythm. Hemoglobin is 11.2 with a white cell count of 11.9 and a platelet count of 146. Sugar is at 131. Comorbidities include hypertension hyperlipidemia. 05/25/2024, the patient is being seen for a follow-up. The patient is postop day #1. The patient is doing extremely well and the patient is currently on room air oxygen. No respiratory difficulties and the patient using incentive spirometer and is pulling approximately 750 cc. Chest x-ray shows no acute abnormalities. There are some atelectatic changes in the right upper lobe area. No evidence of any pneumothorax. Chest tubes are in place and the patient has a right pleural (mediastinal chest tube. The cardiac output is currently at 8.1 with an index of 3.7. Pulmonary artery pressure is 28/3. CVP is at 3. The patient is being a given IV fluids. Output from the left lower chest tube is 130 cc overnight and 300 cc since surgery. Right pleural chest tube has produced approximately 380 cc overnight and 800 cc since surgery. The cardiac rhythm is sinus. No focal neurological deficits. Blood work from today shows a white cell count of 9.7 with a hemoglobin 9.9 and platelet count of 133. Electrolytes are within normal limits. BUN is at 10 with a creatinine of 0.7. The patient was weaned off the mechanical ventilator and the patient was extubated yesterday without any major difficulties. Objective - Vital Signs Vital signs: Vital Signs Temp 98.1 F 05/24/24 19:00 Pulse 82 05/25/24 08:08 Resp 26 H 05/25/24 08:00 BP 91/57 05/25/24 07:00 Pulse Ox 100 05/25/24 08:00 FiO2 50 05/24/24 16:00 Intake & Output 05/24/24 05/25/24 05/25/24 18:59 06:59 18:59 Intake Total 1228.297 953.319 89 Output Total 1510 1490 205 Balance -281.703 -536.681 -116 Weight 108.1 kg Intake: IV 227 348 89 CO/CI 120 240 30 Pressure bag 54 108 9 Sodium Chloride 0.9% 50 50 ml @ 0 mls/hr IV .STK-MED ONE with ceFAZolin 2,000 mg Rx#:[id number] Intake, IV Titration 1001.297 605.319 0 Amount ACETAMINOPHEN IV (For NPO 100 ) 1,000 mg In Empty Bag 1 bag @ 400 mls/hr IVPB Q6HR GILDA Rx#:[id number] Albumin Human 5% 250 ml 500 In Empty Bag 1 bag @ 250 mls/hr IVPB Q1HR PRN Rx#: [id number] Dexmedetomidine/0.9% NaCl 16.138 (Pmx) 400 mcg In Empty Bag 1 bag @ Titrate IV . Q0M GILDA Rx#:[id number] Insulin Regular 100 unit 6.119 5.319 0 In Sodium Chloride 0.9% 100 ml @ Per Protocol IV .Q0M GILDA Rx#:[id number] Sodium Chloride 0.9% 1, 300 600 000 ml @ 30 mls/hr IV . Q24H GILDA Rx#:[id number] propofoL 1,000 mg In 79.04 Empty Bag 1 bag @ Titrate IV .Q0M GILDA Rx#: [id number] Output: Chest Tube Drainage 660 930 30 Left Pleural 260 180 10 Mediastinal 210 270 10 Right Pleural 190 480 10 Urine 550 560 175 Estimated Blood Loss 300 Other: Voiding Method Indwelling Catheter Indwelling Catheter ABP, PAP, CO, CI - Last Documented Arterial Blood Pressure 123/45 Pulmonary Artery Pressure 23/7 Cardiac Output 8.1 Cardiac Index 3.7 - Exam CONSTITUTIONAL: Appears comfortable, cooperative, no acute distress RESPIRATORY: Lungs sounds diminished bilaterally. Respirations even, nonlabored. Currently on 1 L nasal cannula with oxygen saturation 97%. Able to achieve 500-750 mL on incentive spirometry. Strong cough. CARDIOVASCULAR: S1, S2 present. Regular rate and rhythm, sinus rhythm on telemetry. Sternum stable. Palpable peripheral pulses bilaterally. No edema present. No calf pain or tenderness noted. Heart hugger in place with patient demonstrating appropriate use. Antiembolism stockings, SCDs present. GASTROINTESTINAL: Abdomen soft, nontender, nondistended. Active bowel sounds present 4 quadrants. Tolerating clear liquids. Positive belching, negative flatus GENITOURINARY: Patino present draining clear, yellow urine. Output overnight 35-75 mL per hour INTEGUMENTARY: Skin is warm and dry with evidence of good perfusion. Anterior chest incision well approximated and covered with dry intact dressing NEUROLOGIC: Cranial nerves II through XII intact MUSKULOSKELETAL: Able to move all extremities, strength equal bilaterally, gait normal PSYCHIATRIC: Alert and oriented to person place and time, appropriate affect, intact judgment and insight INVASIVE LINES AND TUBES: Mediastinal/left/right pleural chest tubes present and connected to wall suction, minimal air leak present in mediastinal tube with coughing. Mediastinal tube with 160 mL serosanguineous drainage overnight, 500 mL since surgery. Left pleural chest tube with 130 mL serosanguineous drainage overnight, 300 mL since surgery. Right pleural chest tube with 380 mL serosanguineous drainage overnight, 800 mL since surgery. Right internal jugular Bloomfield/Cordis, right radial arterial line present. Last CO/CI 6.3/2.9, PA 28/8, CVP 3. - Labs CBC & Chem 7: 05/25/24 04:05 05/25/24 04:05 Labs: Abnormal Lab Results - Last 24 Hours (Table) 05/20/24 05/24/24 05/24/24 Range/Units 15:57 08:47 11:01 WBC (3.8-10.6) k/uL RBC (4.30-5.90) m/uL Hgb (13.0-17.5) gm/dL Hct (39.0-53.0) % Plt Count (150-450) k/uL Neutrophils # (1.3-7.7) k/uL Lymphocytes # (1.0-4.8) k/uL ABG pO2 288 H 160 H (83-108) mmHg ABG HCO3 26 H 26 H (21-25) mmol/L ABG Total CO2 (19-24) mmol/L ABG O2 Saturation 99.1 H 98.7 H (94-97) % ABG Ionized Calcium 4.4 L (4.5-5.3) mg/dL ABG Glucose 121 H 120 H (75-99) mg/dL Hemoglobin 12.0 L (13.0-17.5) gm/dL Sodium (137-145) mmol/L Chloride (98-107) mmol/L Glucose (74-99) mg/dL POC Glucose (mg/dL) (70-110) mg/dL Calcium (8.4-10.2) mg/dL Ionized Calcium Aly (4.5-5.3) mg/dL Alkaline Phosphatase (38-126) U/L Total Protein (6.3-8.2) g/dL Albumin (3.5-5.0) g/dL Arterial Blood Glucose 121 H 120 H (75-99) mg/dL Crossmatch See Detail 05/24/24 05/24/24 05/24/24 Range/Units 11:29 12:10 13:19 WBC 15.4 H (3.8-10.6) k/uL RBC 3.52 L (4.30-5.90) m/uL Hgb 11.5 L D (13.0-17.5) gm/dL Hct 33.3 L (39.0-53.0) % Plt Count (150-450) k/uL Neutrophils # 13.9 H (1.3-7.7) k/uL Lymphocytes # (1.0-4.8) k/uL ABG pO2 171 H 116 H (83-108) mmHg ABG HCO3 (21-25) mmol/L ABG Total CO2 (19-24) mmol/L ABG O2 Saturation 98.9 H 98.7 H (94-97) % ABG Ionized Calcium 4.4 L 4.4 L (4.5-5.3) mg/dL ABG Glucose 118 H 125 H (75-99) mg/dL Hemoglobin 11.4 L 11.3 L (13.0-17.5) gm/dL Sodium (137-145) mmol/L Chloride (98-107) mmol/L Glucose (74-99) mg/dL POC Glucose (mg/dL) (70-110) mg/dL Calcium (8.4-10.2) mg/dL Ionized Calcium Aly (4.5-5.3) mg/dL Alkaline Phosphatase (38-126) U/L Total Protein (6.3-8.2) g/dL Albumin (3.5-5.0) g/dL Arterial Blood Glucose 118 H 125 H (75-99) mg/dL Crossmatch 05/24/24 05/24/24 05/24/24 Range/Units 13:19 13:27 13:40 WBC (3.8-10.6) k/uL RBC (4.30-5.90) m/uL Hgb (13.0-17.5) gm/dL Hct (39.0-53.0) % Plt Count (150-450) k/uL Neutrophils # (1.3-7.7) k/uL Lymphocytes # (1.0-4.8) k/uL ABG pO2 298 H (83-108) mmHg ABG HCO3 (21-25) mmol/L ABG Total CO2 26 H (19-24) mmol/L ABG O2 Saturation 100.0 H (94-97) % ABG Ionized Calcium (4.5-5.3) mg/dL ABG Glucose (75-99) mg/dL Hemoglobin 11.5 L (13.0-17.5) gm/dL Sodium 135 L (137-145) mmol/L Chloride 108 H (98-107) mmol/L Glucose 121 H (74-99) mg/dL POC Glucose (mg/dL) 132 H (70-110) mg/dL Calcium 7.6 L (8.4-10.2) mg/dL Ionized Calcium Aly (4.5-5.3) mg/dL Alkaline Phosphatase (38-126) U/L Total Protein 4.9 L (6.3-8.2) g/dL Albumin 3.0 L (3.5-5.0) g/dL Arterial Blood Glucose (75-99) mg/dL Crossmatch 05/24/24 05/24/24 05/24/24 Range/Units 14:04 14:57 15:13 WBC 11.9 H (3.8-10.6) k/uL RBC 3.49 L (4.30-5.90) m/uL Hgb 11.2 L (13.0-17.5) gm/dL Hct 33.3 L (39.0-53.0) % Plt Count 146 L (150-450) k/uL Neutrophils # 10.7 H (1.3-7.7) k/uL Lymphocytes # 0.6 L (1.0-4.8) k/uL ABG pO2 (83-108) mmHg ABG HCO3 (21-25) mmol/L ABG Total CO2 (19-24) mmol/L ABG O2 Saturation (94-97) % ABG Ionized Calcium (4.5-5.3) mg/dL ABG Glucose (75-99) mg/dL Hemoglobin (13.0-17.5) gm/dL Sodium (137-145) mmol/L Chloride (98-107) mmol/L Glucose (74-99) mg/dL POC Glucose (mg/dL) 139 H 129 H (70-110) mg/dL Calcium (8.4-10.2) mg/dL Ionized Calcium Aly (4.5-5.3) mg/dL Alkaline Phosphatase (38-126) U/L Total Protein (6.3-8.2) g/dL Albumin (3.5-5.0) g/dL Arterial Blood Glucose (75-99) mg/dL Crossmatch 05/24/24 05/24/24 05/24/24 Range/Units 15:54 16:13 16:59 WBC (3.8-10.6) k/uL RBC (4.30-5.90) m/uL Hgb (13.0-17.5) gm/dL Hct (39.0-53.0) % Plt Count (150-450) k/uL Neutrophils # (1.3-7.7) k/uL Lymphocytes # (1.0-4.8) k/uL ABG pO2 (83-108) mmHg ABG HCO3 (21-25) mmol/L ABG Total CO2 27 H (19-24) mmol/L ABG O2 Saturation 97.4 H (94-97) % ABG Ionized Calcium (4.5-5.3) mg/dL ABG Glucose (75-99) mg/dL Hemoglobin 12.1 L (13.0-17.5) gm/dL Sodium (137-145) mmol/L Chloride (98-107) mmol/L Glucose (74-99) mg/dL POC Glucose (mg/dL) 131 H 141 H (70-110) mg/dL Calcium (8.4-10.2) mg/dL Ionized Calcium Aly (4.5-5.3) mg/dL Alkaline Phosphatase (38-126) U/L Total Protein (6.3-8.2) g/dL Albumin (3.5-5.0) g/dL Arterial Blood Glucose (75-99) mg/dL Crossmatch 05/24/24 05/24/24 05/24/24 Range/Units 17:59 18:00 19:58 WBC 12.1 H (3.8-10.6) k/uL RBC 3.56 L (4.30-5.90) m/uL Hgb 11.2 L (13.0-17.5) gm/dL Hct 34.2 L (39.0-53.0) % Plt Count (150-450) k/uL Neutrophils # 11.2 H (1.3-7.7) k/uL Lymphocytes # 0.3 L (1.0-4.8) k/uL ABG pO2 (83-108) mmHg ABG HCO3 (21-25) mmol/L ABG Total CO2 (19-24) mmol/L ABG O2 Saturation (94-97) % ABG Ionized Calcium (4.5-5.3) mg/dL ABG Glucose (75-99) mg/dL Hemoglobin (13.0-17.5) gm/dL Sodium (137-145) mmol/L Chloride (98-107) mmol/L Glucose (74-99) mg/dL POC Glucose (mg/dL) 126 H 132 H (70-110) mg/dL Calcium (8.4-10.2) mg/dL Ionized Calcium Aly (4.5-5.3) mg/dL Alkaline Phosphatase (38-126) U/L Total Protein (6.3-8.2) g/dL Albumin (3.5-5.0) g/dL Arterial Blood Glucose (75-99) mg/dL Crossmatch 05/24/24 05/24/24 05/24/24 Range/Units 20:58 22:02 23:01 WBC (3.8-10.6) k/uL RBC (4.30-5.90) m/uL Hgb (13.0-17.5) gm/dL Hct (39.0-53.0) % Plt Count (150-450) k/uL Neutrophils # (1.3-7.7) k/uL Lymphocytes # (1.0-4.8) k/uL ABG pO2 (83-108) mmHg ABG HCO3 (21-25) mmol/L ABG Total CO2 (19-24) mmol/L ABG O2 Saturation (94-97) % ABG Ionized Calcium (4.5-5.3) mg/dL ABG Glucose (75-99) mg/dL Hemoglobin (13.0-17.5) gm/dL Sodium (137-145) mmol/L Chloride (98-107) mmol/L Glucose (74-99) mg/dL POC Glucose (mg/dL) 146 H 135 H 146 H (70-110) mg/dL Calcium (8.4-10.2) mg/dL Ionized Calcium Aly (4.5-5.3) mg/dL Alkaline Phosphatase (38-126) U/L Total Protein (6.3-8.2) g/dL Albumin (3.5-5.0) g/dL Arterial Blood Glucose (75-99) mg/dL Crossmatch 05/24/24 05/25/24 05/25/24 Range/Units 23:56 00:59 01:56 WBC (3.8-10.6) k/uL RBC (4.30-5.90) m/uL Hgb (13.0-17.5) gm/dL Hct (39.0-53.0) % Plt Count (150-450) k/uL Neutrophils # (1.3-7.7) k/uL Lymphocytes # (1.0-4.8) k/uL ABG pO2 (83-108) mmHg ABG HCO3 (21-25) mmol/L ABG Total CO2 (19-24) mmol/L ABG O2 Saturation (94-97) % ABG Ionized Calcium (4.5-5.3) mg/dL ABG Glucose (75-99) mg/dL Hemoglobin (13.0-17.5) gm/dL Sodium (137-145) mmol/L Chloride (98-107) mmol/L Glucose (74-99) mg/dL POC Glucose (mg/dL) 130 H 140 H 133 H (70-110) mg/dL Calcium (8.4-10.2) mg/dL Ionized Calcium Aly (4.5-5.3) mg/dL Alkaline Phosphatase (38-126) U/L Total Protein (6.3-8.2) g/dL Albumin (3.5-5.0) g/dL Arterial Blood Glucose (75-99) mg/dL Crossmatch 05/25/24 05/25/24 05/25/24 Range/Units 04:04 04:05 04:05 WBC (3.8-10.6) k/uL RBC 3.12 L (4.30-5.90) m/uL Hgb 9.9 L (13.0-17.5) gm/dL Hct 30.1 L (39.0-53.0) % Plt Count 133 L (150-450) k/uL Neutrophils # 8.5 H (1.3-7.7) k/uL Lymphocytes # 0.6 L (1.0-4.8) k/uL ABG pO2 (83-108) mmHg ABG HCO3 (21-25) mmol/L ABG Total CO2 (19-24) mmol/L ABG O2 Saturation (94-97) % ABG Ionized Calcium (4.5-5.3) mg/dL ABG Glucose (75-99) mg/dL Hemoglobin (13.0-17.5) gm/dL Sodium 136 L (137-145) mmol/L Chloride (98-107) mmol/L Glucose 118 H (74-99) mg/dL POC Glucose (mg/dL) 134 H (70-110) mg/dL Calcium 7.7 L (8.4-10.2) mg/dL Ionized Calcium Aly 4.4 L (4.5-5.3) mg/dL Alkaline Phosphatase 36 L (38-126) U/L Total Protein 5.2 L (6.3-8.2) g/dL Albumin 3.3 L (3.5-5.0) g/dL Arterial Blood Glucose (75-99) mg/dL Crossmatch 05/25/24 05/25/24 05/25/24 Range/Units 05:56 06:48 07:58 WBC (3.8-10.6) k/uL RBC (4.30-5.90) m/uL Hgb (13.0-17.5) gm/dL Hct (39.0-53.0) % Plt Count (150-450) k/uL Neutrophils # (1.3-7.7) k/uL Lymphocytes # (1.0-4.8) k/uL ABG pO2 (83-108) mmHg ABG HCO3 (21-25) mmol/L ABG Total CO2 (19-24) mmol/L ABG O2 Saturation (94-97) % ABG Ionized Calcium (4.5-5.3) mg/dL ABG Glucose (75-99) mg/dL Hemoglobin (13.0-17.5) gm/dL Sodium (137-145) mmol/L Chloride (98-107) mmol/L Glucose (74-99) mg/dL POC Glucose (mg/dL) 138 H 128 H 138 H (70-110) mg/dL Calcium (8.4-10.2) mg/dL Ionized Calcium Aly (4.5-5.3) mg/dL Alkaline Phosphatase (38-126) U/L Total Protein (6.3-8.2) g/dL Albumin (3.5-5.0) g/dL Arterial Blood Glucose (75-99) mg/dL Crossmatch Assessment and Plan Plan: Multivessel coronary artery disease, s/p coronary bypass surgery with CHAMBERS to OM and SUNDAY to LAD, patient is currently postop day # 1. Hemodynamically stable. No pressors. The patient has adequate cardiac output and index. CVP is slightly low and the patient would benefit from IV fluids. Chest x-ray shows some right upper lobe atelectatic changes. Currently on room air oxygen. Postthoracotomy, extubated yesterday.. The patient has adequate oxygenation and ventilation. Chest tubes are in place. Output from the chest tube has been noted. The patient is currently on room air oxygen. Atelectatic changes in the right upper lobe is noted on today's chest x-ray. The patient was weaned off the mechanical ventilator and extubated without any major difficulties. Hypertension Hyperlipidemia History of skin cancer Plan Patient is extubated and the patient is currently on room air oxygen. Moderate output from the chest tube No pressors for now Hemodynamically stable Insulin drip for blood sugar management and control Continue aspirin and Plavix Start the patient on metoprolol Continue high-dose statins with Lipitor Amiodarone for A-fib prophylaxis Increase mobility Keep in ICU for now
[2024-05-25 12:04] LABS: Glucose,Whole Blood 96 mg/dL (70-110)
[2024-05-25] MEDS: ALBUMIN HUMAN 5% 250 ML in EMPTY BAG 1 BAG IVPB ONE (14:04)
[2024-05-25 14:19] LABS: Glucose,Whole Blood 160 mg/dL (70-110)
--- NOTE | 2024-05-25 15:24 | P.PN ---
Subjective Progress Note Date: 05/25/24 63 year old M with PMH of CAD, HTN, HLD presents to [facility] for elective surgery. He underwent CABG x 2 with SUNDAY to LAD and CHAMBERS to obtuse marginal with Dr. Tipton. He is seen post operatively in the ICU. [facility] consulted for medical management of this patient. Extubated successfully on 05/24. 05/25 Patient was seen and examined. Pain well controlled. Nitroglycerin drip discontinued. Hypotensive this morning given albumin infusion. Religiously using his IS. Insulin drip running a 1 unit/hr. CBC, CMP significant for RBC 3.12, Hg 9.9, Hct 30.1, Na 136, glu 118, Ca 7.7, ionized Ca 4.4, alk phos 36, alb 3.3. Mag 2.2. CXR shows right upper lobe atelectasis. POC glucose 96-179 over the past 24H. General: non toxic, no distress, appears at stated age Derm: warm, dry, sternal scar dressing c/d/i Head: atraumatic, normocephalic, symmetric Eyes: EOMI, no lid lag, anicteric sclera Mouth: no lip lesion, mucus membranes moist Cardiovascular: S1S2 reg, no murmur, mediastinal/bilateral chest tube in place Lungs: Clear to auscultation bilateral, no rhonchi, no rales , no accessory m uscle use Abdominal: soft, non distended, + Patino Ext: no gross muscle atrophy, no edema, no contractures, bilateral LE wrapped c/d/i Neuro: No focal neurologic deficits Psych: Alert and oriented Based on my assessment of this patient, this patient meets a high complexity level of care. Acute blood loss anemia: Expected result of surgery. Trend daily Hg. CAD status post CABG x 2 with SUNDAY to LAD and CHAMBERS to obtuse marginal with Dr. Tipton POD 1: ASA 325 mg PO QD. Lipitor 40 mg PO QAM. Plavix 75 mg PO QD. Metoprolol 12.5 mg PO BID. Hypertension: Metoprolol as above. Dyslipidemia: Lipitor as above. Resolved: Leukocytosis CODE STATUS: FULL CODE. DVT Prophylaxis: Heparin SQ GI Prophylaxis: Protonix IV Designated medical POA if patient is not able to make medical decisions for themselves: I have reviewed the following vocational rehabilitation consultant notes: Pulmonary, CT, Cardiology note. I have reviewed the results of the following tests: CBC, CMP, Mag. I have ordered the following tests: CBC, CMP. I have discussed the care of this patient with the following independent historian: RN, family member. I have independently interpreted the following test below: CXR I have discussed the management of this patient with the following physician: Objective - Vital Signs Vital signs: Vital Signs Temp 98.1 F 05/24/24 19:00 Pulse 75 05/25/24 15:00 Resp 27 H 05/25/24 15:00 BP 92/48 05/25/24 12:00 Pulse Ox 93 L 05/25/24 15:00 FiO2 50 05/24/24 16:00 Intake & Output 05/24/24 05/25/24 05/25/24 18:59 06:59 18:59 Intake Total 1228.297 953.319 946.823 Output Total 1510 1490 1310 Balance -281.703 -536.681 -363.177 Weight 108.1 kg 108.1 kg Intake: IV 227 348 342 CO/CI 120 240 60 Pressure bag 54 108 42 Sodium Chloride 0.9% 1, 90 000 ml @ 30 mls/hr IV . Q24H [facility] Rx#:[id number] Sodium Chloride 0.9% 50 150 ml @ 0 mls/hr IV .STK-MED ONE with ceFAZolin 2,000 mg Rx#:[id number] Intake, IV Titration 1001.297 605.319 4.823 Amount ACETAMINOPHEN IV (For NPO 100 ) 1,000 mg In Empty Bag 1 bag @ 400 mls/hr IVPB Q6HR [facility] Rx#:[id number] Albumin Human 5% 250 ml 500 In Empty Bag 1 bag @ 250 mls/hr IVPB Q1HR PRN Rx#: [id number] Dexmedetomidine/0.9% NaCl 16.138 (Pmx) 400 mcg In Empty Bag 1 bag @ Titrate IV . Q0M [facility] Rx#:[id number] Insulin Regular 100 unit 6.119 5.319 4.823 In Sodium Chloride 0.9% 100 ml @ Per Protocol IV .Q0M [facility] Rx#:[id number] Sodium Chloride 0.9% 1, 300 600 000 ml @ 30 mls/hr IV . Q24H [facility] Rx#:[id number] propofoL 1,000 mg In 79.04 Empty Bag 1 bag @ Titrate IV .Q0M [facility] Rx#: [id number] Oral 600 Output: Chest Tube Drainage 660 930 410 Left Pleural 260 180 80 Mediastinal 210 270 220 Right Pleural 190 480 110 Urine 550 560 900 Estimated Blood Loss 300 Other: Voiding Method Indwelling Catheter Indwelling Catheter Indwelling Catheter ABP, PAP, CO, CI - Last Documented Arterial Blood Pressure 93/43 Pulmonary Artery Pressure 23/6 Cardiac Output 6.7 Cardiac Index 3 - Labs CBC & Chem 7: 05/25/24 04:05 05/25/24 04:05 Labs: Abnormal Lab Results - Last 24 Hours (Table) 05/20/24 05/24/24 05/24/24 Range/Units 15:57 13:40 15:13 WBC 11.9 H (3.8-10.6) k/uL RBC 3.49 L (4.30-5.90) m/uL Hgb 11.2 L (13.0-17.5) gm/dL Hct 33.3 L (39.0-53.0) % Plt Count 146 L (150-450) k/uL Neutrophils # 10.7 H (1.3-7.7) k/uL Lymphocytes # 0.6 L (1.0-4.8) k/uL ABG pO2 298 H (83-108) mmHg ABG Total CO2 26 H (19-24) mmol/L ABG O2 Saturation 100.0 H (94-97) % Hemoglobin 11.5 L (13.0-17.5) gm/dL Sodium (137-145) mmol/L Glucose (74-99) mg/dL POC Glucose (mg/dL) (70-110) mg/dL Calcium (8.4-10.2) mg/dL Ionized Calcium Aly (4.5-5.3) mg/dL Alkaline Phosphatase (38-126) U/L Total Protein (6.3-8.2) g/dL Albumin (3.5-5.0) g/dL Crossmatch See Detail 05/24/24 05/24/24 05/24/24 Range/Units 15:54 16:13 16:59 WBC (3.8-10.6) k/uL RBC (4.30-5.90) m/uL Hgb (13.0-17.5) gm/dL Hct (39.0-53.0) % Plt Count (150-450) k/uL Neutrophils # (1.3-7.7) k/uL Lymphocytes # (1.0-4.8) k/uL ABG pO2 (83-108) mmHg ABG Total CO2 27 H (19-24) mmol/L ABG O2 Saturation 97.4 H (94-97) % Hemoglobin 12.1 L (13.0-17.5) gm/dL Sodium (137-145) mmol/L Glucose (74-99) mg/dL POC Glucose (mg/dL) 131 H 141 H (70-110) mg/dL Calcium (8.4-10.2) mg/dL Ionized Calcium Aly (4.5-5.3) mg/dL Alkaline Phosphatase (38-126) U/L Total Protein (6.3-8.2) g/dL Albumin (3.5-5.0) g/dL Crossmatch 05/24/24 05/24/24 05/24/24 Range/Units 17:59 18:00 19:58 WBC 12.1 H (3.8-10.6) k/uL RBC 3.56 L (4.30-5.90) m/uL Hgb 11.2 L (13.0-17.5) gm/dL Hct 34.2 L (39.0-53.0) % Plt Count (150-450) k/uL Neutrophils # 11.2 H (1.3-7.7) k/uL Lymphocytes # 0.3 L (1.0-4.8) k/uL ABG pO2 (83-108) mmHg ABG Total CO2 (19-24) mmol/L ABG O2 Saturation (94-97) % Hemoglobin (13.0-17.5) gm/dL Sodium (137-145) mmol/L Glucose (74-99) mg/dL POC Glucose (mg/dL) 126 H 132 H (70-110) mg/dL Calcium (8.4-10.2) mg/dL Ionized Calcium Aly (4.5-5.3) mg/dL Alkaline Phosphatase (38-126) U/L Total Protein (6.3-8.2) g/dL Albumin (3.5-5.0) g/dL Crossmatch 05/24/24 05/24/24 05/24/24 Range/Units 20:58 22:02 23:01 WBC (3.8-10.6) k/uL RBC (4.30-5.90) m/uL Hgb (13.0-17.5) gm/dL Hct (39.0-53.0) % Plt Count (150-450) k/uL Neutrophils # (1.3-7.7) k/uL Lymphocytes # (1.0-4.8) k/uL ABG pO2 (83-108) mmHg ABG Total CO2 (19-24) mmol/L ABG O2 Saturation (94-97) % Hemoglobin (13.0-17.5) gm/dL Sodium (137-145) mmol/L Glucose (74-99) mg/dL POC Glucose (mg/dL) 146 H 135 H 146 H (70-110) mg/dL Calcium (8.4-10.2) mg/dL Ionized Calcium Aly (4.5-5.3) mg/dL Alkaline Phosphatase (38-126) U/L Total Protein (6.3-8.2) g/dL Albumin (3.5-5.0) g/dL Crossmatch 05/24/24 05/25/24 05/25/24 Range/Units 23:56 00:59 01:56 WBC (3.8-10.6) k/uL RBC (4.30-5.90) m/uL Hgb (13.0-17.5) gm/dL Hct (39.0-53.0) % Plt Count (150-450) k/uL Neutrophils # (1.3-7.7) k/uL Lymphocytes # (1.0-4.8) k/uL ABG pO2 (83-108) mmHg ABG Total CO2 (19-24) mmol/L ABG O2 Saturation (94-97) % Hemoglobin (13.0-17.5) gm/dL Sodium (137-145) mmol/L Glucose (74-99) mg/dL POC Glucose (mg/dL) 130 H 140 H 133 H (70-110) mg/dL Calcium (8.4-10.2) mg/dL Ionized Calcium Aly (4.5-5.3) mg/dL Alkaline Phosphatase (38-126) U/L Total Protein (6.3-8.2) g/dL Albumin (3.5-5.0) g/dL Crossmatch 05/25/24 05/25/24 05/25/24 Range/Units 04:04 04:05 04:05 WBC (3.8-10.6) k/uL RBC 3.12 L (4.30-5.90) m/uL Hgb 9.9 L (13.0-17.5) gm/dL Hct 30.1 L (39.0-53.0) % Plt Count 133 L (150-450) k/uL Neutrophils # 8.5 H (1.3-7.7) k/uL Lymphocytes # 0.6 L (1.0-4.8) k/uL ABG pO2 (83-108) mmHg ABG Total CO2 (19-24) mmol/L ABG O2 Saturation (94-97) % Hemoglobin (13.0-17.5) gm/dL Sodium 136 L (137-145) mmol/L Glucose 118 H (74-99) mg/dL POC Glucose (mg/dL) 134 H (70-110) mg/dL Calcium 7.7 L (8.4-10.2) mg/dL Ionized Calcium Aly 4.4 L (4.5-5.3) mg/dL Alkaline Phosphatase 36 L (38-126) U/L Total Protein 5.2 L (6.3-8.2) g/dL Albumin 3.3 L (3.5-5.0) g/dL Crossmatch 05/25/24 05/25/24 05/25/24 Range/Units 05:56 06:48 07:58 WBC (3.8-10.6) k/uL RBC (4.30-5.90) m/uL Hgb (13.0-17.5) gm/dL Hct (39.0-53.0) % Plt Count (150-450) k/uL Neutrophils # (1.3-7.7) k/uL Lymphocytes # (1.0-4.8) k/uL ABG pO2 (83-108) mmHg ABG Total CO2 (19-24) mmol/L ABG O2 Saturation (94-97) % Hemoglobin (13.0-17.5) gm/dL Sodium (137-145) mmol/L Glucose (74-99) mg/dL POC Glucose (mg/dL) 138 H 128 H 138 H (70-110) mg/dL Calcium (8.4-10.2) mg/dL Ionized Calcium Aly (4.5-5.3) mg/dL Alkaline Phosphatase (38-126) U/L Total Protein (6.3-8.2) g/dL Albumin (3.5-5.0) g/dL Crossmatch 05/25/24 05/25/24 05/25/24 Range/Units 09:16 10:00 14:17 WBC (3.8-10.6) k/uL RBC (4.30-5.90) m/uL Hgb (13.0-17.5) gm/dL Hct (39.0-53.0) % Plt Count (150-450) k/uL Neutrophils # (1.3-7.7) k/uL Lymphocytes # (1.0-4.8) k/uL ABG pO2 (83-108) mmHg ABG Total CO2 (19-24) mmol/L ABG O2 Saturation (94-97) % Hemoglobin (13.0-17.5) gm/dL Sodium (137-145) mmol/L Glucose (74-99) mg/dL POC Glucose (mg/dL) 179 H 126 H 160 H (70-110) mg/dL Calcium (8.4-10.2) mg/dL Ionized Calcium Aly (4.5-5.3) mg/dL Alkaline Phosphatase (38-126) U/L Total Protein (6.3-8.2) g/dL Albumin (3.5-5.0) g/dL Crossmatch
[2024-05-25 16:09] LABS: Glucose,Whole Blood 157 mg/dL (70-110)
[2024-05-25] MEDS: ACETAMINOPHEN TAB 325 MG TAB PO PRN (17:44)
[2024-05-25] MEDS: MIDODRINE 5 MG TAB PO SCH (17:45)
[2024-05-25 20:09] LABS: Glucose,Whole Blood 201 mg/dL (70-110)
[2024-05-25] MEDS: INSULIN ASPART (NovoLOG) 100 UNIT/ML VIAL SQ SCH (21:22)
[2024-05-26 04:21] LABS: Basophils % (A) 0 %; Eosinophils # (A) 0.1 k/uL (0-0.7); Eosinophils % (A) 1 %; HCT 27.9 % (39.0-53.0); HGB 9.2 gm/dL (13.0-17.5); Lymphocytes # (A) 0.9 k/uL (1.0-4.8); Lymphocytes % (A) 8 %; MCH 32.2 pg (25.0-35.0); MCHC 33.2 g/dL (31.0-37.0); MCV 97.2 fL (80.0-100.0); Mean Platelet Volume 9.3; Monocytes # (A) 0.6 k/uL (0-1.0); Monocytes % (A) 5 %; Neutrophils # (A) 9.1 k/uL (1.3-7.7); Neutrophils % (A) 85 %; Platelet Count 124 k/uL (150-450); RBC 2.87 m/uL (4.30-5.90); RDW 12.1 % (11.5-15.5); WBC 10.7 k/uL (3.8-10.6)
[2024-05-26 05:02] LABS: Ionized Calcium 4.6 mg/dL (4.5-5.3)
[2024-05-26 05:14] LABS: ALT 10 U/L (4-49); AST 23 U/L (17-59); African American GFR (CKD) >90 (>60 ml/min/1.73 sqM); Albumin 3.4 g/dL (3.5-5.0); Alkaline Phosphatase 40 U/L (38-126); Anion Gap 5 mmol/L; Blood Urea Nitrogen 13 mg/dL (9-20); Calcium 8.5 mg/dL (8.4-10.2); Carbon Dioxide 23 mmol/L (22-30); Chloride 109 mmol/L (98-107); Glucose 114 mg/dL (74-99); Non-African American GFR(CKD) >90 (>60 ml/min/1.73 sqM); Potassium 3.7 mmol/L (3.5-5.1); Sodium 137 mmol/L (137-145); Total Bilirubin 0.8 mg/dL (0.2-1.3); Total Protein 5.2 g/dL (6.3-8.2)
[2024-05-26 06:28] LABS: Glucose,Whole Blood 122 mg/dL (70-110)
[2024-05-26] MEDS: POTASSIUM CHLORIDE ER 20 MEQ TAB.ER PO SCH (06:38)
[2024-05-26] MEDS: PANTOPRAZOLE 40 MG TABLET PO SCH (06:38)
[2024-05-26] MEDS: INSULIN ASPART (NovoLOG) 100 UNIT/ML VIAL SQ SCH (06:38)
--- NOTE | 2024-05-26 07:58 | P.PN ---
Subjective Progress Note Date: 05/26/24 PROGRESS NOTE The patient is a 63-year-old male who is followed by Dr. Torrez who was admitted today to undergo coronary bypass grafting by Dr. Tipton. He was evaluated as an outpatient by Dr. Torrez and was found to have moderate area of stress-induced ischemia, he subsequently underwent cardiac catheterization that showed occluded LAD from the proximal to the midportion at the bifurcation of a large diagonal branch and significant disease in the OM. The right coronary artery had mild obstructive disease. He underwent CABG today with CHAMBERS to the OM and SUNDAY to the LAD. He is intubated and sedated, hemodynamically stable. He is in sinus mechanism on no vasopressors. He has good urinary output. Preoperatively his systolic function was normal by echocardiography. His coronary risks factor are positive for hypertension and hyperlipidemia May 25 The patient is extubated, sitting up in the chair, feeling well. He denies any significant dyspnea, dizziness or palpitations. He continues to be in sinus mechanism. He has soreness in the chest but he is using his incentive spirometry. He is on no vasopressors. His urinary output has been good. May 26: The patient is feeling well this morning, denies any chest pain, dizziness or palpitations. Hemodynamically stable. He is ambulating. He continues to be in sinus mechanism. His urinary output is stable. He is on no vasopressors. Medications: Aspirin, Lipitor 40 mg daily, Plavix 75 mg daily, metoprolol 12.5 mg twice a day PHYSICAL EXAMINATION: Blood pressure 122/60 heart rate 82 LUNGS: Decreased breath sounds at the bases HEART: Regular rate and rhythm, S1, S2. No S3. No systolic murmur ABDOMEN: Soft, nontender, no organomegaly EXTREMETIES: No edema LAB: Hemoglobin 9.2, BUN 13, creatinine 0.82, IMPRESSION: 1. Status post CABG with CHAMBERS to the OM and SUNDAY to the LAD 2. History of hyperlipidemia 3. History of hypertension PLAN: 1. Continue present therapy 2. Continue incentive spirometry 3. Increase physical activity 4. Increase beta-maico Objective - Vital Signs Vital signs: Vital Signs Temp 98.4 F 05/26/24 04:00 Pulse 82 05/26/24 07:00 Resp 17 05/26/24 07:00 BP 122/68 05/26/24 07:00 Pulse Ox 93 L 05/26/24 07:00 FiO2 50 05/24/24 16:00 Intake & Output 05/25/24 05/26/24 05/26/24 18:59 06:59 18:59 Intake Total 8977.242 6367 Output Total 1680 965 Balance -375.938 2647 Weight 108.1 kg 103.1 kg Intake: IV 522 468 CO/CI 60 Pressure bag 72 78 Sodium Chloride 0.9% 1, 240 390 000 ml @ 30 mls/hr IV . Q24H [facility] Rx#:[id number] Sodium Chloride 0.9% 50 150 ml @ 0 mls/hr IV .STK-MED ONE with ceFAZolin 2,000 mg Rx#:[id number] Intake, IV Titration 4.823 Amount Insulin Regular 100 unit 4.823 In Sodium Chloride 0.9% 100 ml @ Per Protocol IV .Q0M [facility] Rx#:[id number] Oral 600 1600 Output: Chest Tube Drainage 510 480 Left Pleural 110 150 Mediastinal 240 80 Right Pleural 160 250 Urine 1170 485 Other: Voiding Method Indwelling Catheter Indwelling Catheter ABP, PAP, CO, CI - Last Documented Arterial Blood Pressure 131/52 Pulmonary Artery Pressure 23/6 Cardiac Output 6.7 Cardiac Index 3 - Labs CBC & Chem 7: 05/26/24 04:00 05/26/24 04:00 Labs: Abnormal Lab Results - Last 24 Hours (Table) 05/25/24 05/25/24 05/25/24 Range/Units 07:58 09:16 10:00 WBC (3.8-10.6) k/uL RBC (4.30-5.90) m/uL Hgb (13.0-17.5) gm/dL Hct (39.0-53.0) % Plt Count (150-450) k/uL Neutrophils # (1.3-7.7) k/uL Lymphocytes # (1.0-4.8) k/uL Chloride (98-107) mmol/L Glucose (74-99) mg/dL POC Glucose (mg/dL) 138 H 179 H 126 H (70-110) mg/dL Total Protein (6.3-8.2) g/dL Albumin (3.5-5.0) g/dL 05/25/24 05/25/24 05/25/24 Range/Units 14:17 16:08 20:08 WBC (3.8-10.6) k/uL RBC (4.30-5.90) m/uL Hgb (13.0-17.5) gm/dL Hct (39.0-53.0) % Plt Count (150-450) k/uL Neutrophils # (1.3-7.7) k/uL Lymphocytes # (1.0-4.8) k/uL Chloride (98-107) mmol/L Glucose (74-99) mg/dL POC Glucose (mg/dL) 160 H 157 H 201 H (70-110) mg/dL Total Protein (6.3-8.2) g/dL Albumin (3.5-5.0) g/dL 05/26/24 05/26/24 05/26/24 Range/Units 04:00 04:00 06:26 WBC 10.7 H (3.8-10.6) k/uL RBC 2.87 L (4.30-5.90) m/uL Hgb 9.2 L (13.0-17.5) gm/dL Hct 27.9 L (39.0-53.0) % Plt Count 124 L (150-450) k/uL Neutrophils # 9.1 H (1.3-7.7) k/uL Lymphocytes # 0.9 L (1.0-4.8) k/uL Chloride 109 H (98-107) mmol/L Glucose 114 H (74-99) mg/dL POC Glucose (mg/dL) 122 H (70-110) mg/dL Total Protein 5.2 L (6.3-8.2) g/dL Albumin 3.4 L (3.5-5.0) g/dL
[2024-05-26] MEDS: METOPROLOL TARTRATE 25 MG TAB PO SCH (08:35)
--- NOTE | 2024-05-26 08:41 | P.PN ---
Subjective Progress Note Date: 05/26/24 Principal diagnosis: Coronary artery disease, unstable angina. Previous medical history of hypertension, hyperlipidemia, basal cell skin cancer, daily EtOH use, previous tobacco dependence, and family history of premature coronary artery disease with mother from [place] at 60 years old POD #2 off-pump coronary artery bypass graft x 2 with right internal mammary artery to left anterior descending artery and left internal mammary artery to obtuse marginal with ligation of the left atrial appendage with 35mm AtriCure clip Postoperative acucte blood loss anemia and thrombocytopenia, expected given hemodilution The patient was seen and examined this morning with Dr. Vargas sitting up in a recliner in no acute distress. Remains in sinus rhythm, hemodynamically stable. States pain is controlled on current medication regimen, denies shortness of breath. Currently on room air with oxygen saturation in the mid 90s. Right internal jugular cordis, right radial arterial line, mediastinal/right/left pleural chest tubes all remain. Chest x-ray, labs reviewed. Patient has been ambulatory in the richey without difficulty. No other new concerns. Objective - Vital Signs Vital signs: Vital Signs Temp 98.2 F 05/26/24 08:00 Pulse 92 05/26/24 08:00 Resp 31 H 05/26/24 08:00 BP 122/68 05/26/24 07:00 Pulse Ox 92 L 05/26/24 08:00 FiO2 50 05/24/24 16:00 Intake & Output 05/25/24 05/26/24 05/26/24 18:59 06:59 18:59 Intake Total 4804.074 5252 Output Total 1680 965 Balance -469.927 3233 Weight 108.1 kg 103.1 kg Intake: IV 522 468 CO/CI 60 Pressure bag 72 78 Sodium Chloride 0.9% 1, 240 390 000 ml @ 30 mls/hr IV . Q24H [facility] Rx#:[id number] Sodium Chloride 0.9% 50 150 ml @ 0 mls/hr IV .STK-MED ONE with ceFAZolin 2,000 mg Rx#:[id number] Intake, IV Titration 4.823 Amount Insulin Regular 100 unit 4.823 In Sodium Chloride 0.9% 100 ml @ Per Protocol IV .Q0M [facility] Rx#:[id number] Oral 600 1600 Output: Chest Tube Drainage 510 480 Left Pleural 110 150 Mediastinal 240 80 Right Pleural 160 250 Urine 1170 485 Other: Voiding Method Indwelling Catheter Indwelling Catheter ABP, PAP, CO, CI - Last Documented Arterial Blood Pressure 127/50 Pulmonary Artery Pressure 23/6 Cardiac Output 6.7 Cardiac Index 3 - Exam CONSTITUTIONAL: Appears comfortable, cooperative, no acute distress RESPIRATORY: Lungs sounds diminished bilaterally. Respirations even, nonlabored. Currently on room air with oxygen saturation 94%. Able to achieve 1000 mL on incentive spirometry. Strong cough. CARDIOVASCULAR: S1, S2 present. Regular rate and rhythm, sinus rhythm on telemetry. Sternum stable. Palpable peripheral pulses bilaterally. No edema present. No calf pain or tenderness noted. Heart hugger in place with patient demonstrating appropriate use. Antiembolism stockings, SCDs present. GASTROINTESTINAL: Abdomen soft, nontender, nondistended. Active bowel sounds present 4 quadrants. Tolerating diet. Positive flatus GENITOURINARY: Patino present draining clear, yellow urine. Output overnight 30-50 mL per hour, 1640 mL in the last 24 hours INTEGUMENTARY: Skin is warm and dry with evidence of good perfusion. Anterior chest incision well approximated and covered with dry intact dressing NEUROLOGIC: Cranial nerves II through XII intact MUSKULOSKELETAL: Able to move all extremities, strength equal bilaterally, gait normal PSYCHIATRIC: Alert and oriented to person place and time, appropriate affect, intact judgment and insight INVASIVE LINES AND TUBES: Mediastinal/left/right pleural chest tubes present and connected to wall suction, no air leak present. Mediastinal tube with 50 mL serosanguineous drainage overnight, 300 mL in the last 24 hours. Left pleural chest tube with 100 mL serosanguineous drainage overnight, 200 mL in the last 24 hours. Right pleural chest tube with 150 mL serosanguineous drainage overnight, 250 mL in the last 24 hours. Right internal jugular cordis, right radial arterial line present. - Allied health notes Allied health notes reviewed: nursing - Labs CBC & Chem 7: 05/26/24 04:00 05/26/24 04:00 Labs: Abnormal Lab Results - Last 24 Hours (Table) 05/25/24 05/25/24 05/25/24 Range/Units 09:16 10:00 14:17 WBC (3.8-10.6) k/uL RBC (4.30-5.90) m/uL Hgb (13.0-17.5) gm/dL Hct (39.0-53.0) % Plt Count (150-450) k/uL Neutrophils # (1.3-7.7) k/uL Lymphocytes # (1.0-4.8) k/uL Chloride (98-107) mmol/L Glucose (74-99) mg/dL POC Glucose (mg/dL) 179 H 126 H 160 H (70-110) mg/dL Total Protein (6.3-8.2) g/dL Albumin (3.5-5.0) g/dL 05/25/24 05/25/24 05/26/24 Range/Units 16:08 20:08 04:00 WBC 10.7 H (3.8-10.6) k/uL RBC 2.87 L (4.30-5.90) m/uL Hgb 9.2 L (13.0-17.5) gm/dL Hct 27.9 L (39.0-53.0) % Plt Count 124 L (150-450) k/uL Neutrophils # 9.1 H (1.3-7.7) k/uL Lymphocytes # 0.9 L (1.0-4.8) k/uL Chloride (98-107) mmol/L Glucose (74-99) mg/dL POC Glucose (mg/dL) 157 H 201 H (70-110) mg/dL Total Protein (6.3-8.2) g/dL Albumin (3.5-5.0) g/dL 05/26/24 05/26/24 Range/Units 04:00 06:26 WBC (3.8-10.6) k/uL RBC (4.30-5.90) m/uL Hgb (13.0-17.5) gm/dL Hct (39.0-53.0) % Plt Count (150-450) k/uL Neutrophils # (1.3-7.7) k/uL Lymphocytes # (1.0-4.8) k/uL Chloride 109 H (98-107) mmol/L Glucose 114 H (74-99) mg/dL POC Glucose (mg/dL) 122 H (70-110) mg/dL Total Protein 5.2 L (6.3-8.2) g/dL Albumin 3.4 L (3.5-5.0) g/dL - Imaging and Cardiology Chest x-ray: image reviewed Assessment and Plan Assessment: Coronary artery disease, unstable angina, status post off-pump coronary artery bypass graft x 2 Postoperative acucte blood loss anemia and thrombocytopenia, expected given hemodilution History of hypertension Hyperlipidemia, treated, cholesterol 275, LDL 148, TG 335 Basal cell skin cancer Daily EtOH use Previous tobacco dependence, preoperative FEV1 87% of predicted Family history of premature coronary artery disease with mother from [place] at 60 years old Plan: Continue to maximize medical therapy with aspirin, statin, Plavix, beta-maico. Will increase beta-maico therapy as tolerated, increased today by cardiology Encourage incentive spirometry use 10 times every hour while awake. Bronchodilators per pulmonology Increase activity, ambulate as tolerated. PT/OT/cardiac rehab consulted Will monitor daily labs and x-rays. Electrolyte replacement per protocol GI/DVT prophylaxis Insulin management per internal medicine, patient is not diabetic, preoperative hemoglobin A1c 5.6% Pain control per current medication regimen Discontinue Cordis, arterial line Will discontinue mediastinal chest tube, continue pleural chest tubes for another 24 hours, monitor output Discontinue Patino catheter, may bladder scan and straight cath for greater than 300 mL residual Continue to record strict accurate intake and output Daily weights Will place transfer orders for 3 S. cardiac stepdown unit, may transfer when bed available More recommendations to follow as patient progresses
--- NOTE | 2024-05-26 09:56 | XR ---
EXAMINATION TYPE: XR chest 1V portable DATE OF EXAM: 05/26/2024 COMPARISON: 05/25/2024 INDICATION: Postop cardiac surgery TECHNIQUE: Single frontal view of the chest is obtained. FINDINGS: The heart size is enlarged. The pulmonary vasculature is normal. No suspicious consolidations. Right perihilar infiltrate is improving Bilateral chest tubes are present. Mediastinal tube is present. Central venous catheter sheath on rig ht IMPRESSION: 1. Improving right perihilar infiltrate. 2. Lines and catheters discussed above [facility], , 05/26/2024 9:53 AM
[2024-05-26 11:40] LABS: Glucose,Whole Blood 131 mg/dL (70-110)
--- NOTE | 2024-05-26 12:27 | P.PN ---
Subjective Progress Note Date: 05/26/24 63 year old M with PMH of CAD, HTN, HLD, history of basal cell skin CA presents to [facility] for elective surgery. He underwent CABG x 2 with SUNDAY to LAD and CHAMBERS to obtuse marginal with Dr. Tipton. He is seen post operatively in the ICU. [facility] Physicians consulted for medical management of this patient. Extubated successfully on 05/24. 05/26 Patient was seen and examined. Receiving Tylenol, Toradol and OxyIR for pain control. Insulin drip switched to ISS per protocol. CBC, CMP significant fo r WBC 107, RBC 2.87, Hg 9.2, Hct 27.9, Cl 109, glu 114, Ca 7.7, ionized Ca 4.6, alb 3.4. CXR shows right upper lobe atelectasis. POC glucose 96-201 over the past 24H. CXR shows improved right perihilar infiltrate. CT surgery, Patino catheter, mediastinal chest tube, cordis, arterial line discontinued. Has not urinated yet. No bowel movement but passing gas. General: non toxic, no distress, appears at stated age Derm: warm, dry, sternal scar dressing c/d/i Head: atraumatic, normocephalic, symmetric Eyes: EOMI, no lid lag, anicteric sclera Mouth: no lip lesion, mucus membranes moist Cardiovascular: S1S2 reg, no murmur, bilateral chest tube in place Lungs: Clear to auscultation bilateral, no rhonchi, no rales , no accessory muscle use Abdominal: soft, non distended Ext: no gross muscle atrophy, no edema, no contractures, bilateral LE wrapped c/d/i Neuro: No focal neurologic deficits Psych: Alert and oriented Based on my assessment of this patient, this patient meets a high complexity l evel of care. Acute blood loss anemia: Expected result of surgery. Trend daily Hg. Leukocytosis: Likely reactive. No fever. No signs of active infection. Monitor fever profile. CAD status post CABG x 2 with SUNDAY to LAD and CHAMBERS to obtuse marginal with Dr. Tipton POD 2: ASA 325 mg PO QD. Lipitor 40 mg PO QAM. Plavix 75 mg PO QD. Metoprolol 25 mg PO BID. Hypertension: Metoprolol as above. Dyslipidemia: Lipitor as above. CODE STATUS: FULL CODE. DVT Prophylaxis: Heparin SQ GI Prophylaxis: Protonix PO Designated medical POA if patient is not able to make medical decisions for themselves: I have reviewed the following analytical consultant notes: CT, Cardiology note. I have reviewed the results of the following tests: CBC, CMP I have ordered the following tests: CBC, CMP. I have discussed the care of this patient with the following independent historian: I have independently interpreted the following test below: CXR I have discussed the management of this patient with the following physician: Objective - Vital Signs Vital signs: Vital Signs Temp 98.4 F 05/26/24 04:00 Pulse 82 05/26/24 07:00 Resp 17 05/26/24 07:00 BP 122/68 05/26/24 07:00 Pulse Ox 93 L 05/26/24 07:00 FiO2 50 05/24/24 16:00 Intake & Output 05/25/24 05/26/24 05/26/24 18:59 06:59 18:59 Intake Total 7223.023 3774 Output Total 1680 965 Balance -910.924 4109 Weight 108.1 kg 103.1 kg Intake: IV 522 468 CO/CI 60 Pressure bag 72 78 Sodium Chloride 0.9% 1, 240 390 000 ml @ 30 mls/hr IV . Q24H [facility] Rx#:[id number] Sodium Chloride 0.9% 50 150 ml @ 0 mls/hr IV .STK-MED ONE with ceFAZolin 2,000 mg Rx#:[id number] Intake, IV Titration 4.823 Amount Insulin Regular 100 unit 4.823 In Sodium Chloride 0.9% 100 ml @ Per Protocol IV .Q0M [facility] Rx#:[id number] Oral 600 1600 Output: Chest Tube Drainage 510 480 Left Pleural 110 150 Mediastinal 240 80 Right Pleural 160 250 Urine 1170 485 Other: Voiding Method Indwelling Catheter Indwelling Catheter ABP, PAP, CO, CI - Last Documented Arterial Blood Pressure 131/52 Pulmonary Artery Pressure 23/6 Cardiac Output 6.7 Cardiac Index 3 - Labs CBC & Chem 7: 05/26/24 04:00 05/26/24 04:00 Labs: Abnormal Lab Results - Last 24 Hours (Table) 05/25/24 05/25/24 05/25/24 Range/Units 09:16 10:00 14:17 WBC (3.8-10.6) k/uL RBC (4.30-5.90) m/uL Hgb (13.0-17.5) gm/dL Hct (39.0-53.0) % Plt Count (150-450) k/uL Neutrophils # (1.3-7.7) k/uL Lymphocytes # (1.0-4.8) k/uL Chloride (98-107) mmol/L Glucose (74-99) mg/dL POC Glucose (mg/dL) 179 H 126 H 160 H (70-110) mg/dL Total Protein (6.3-8.2) g/dL Albumin (3.5-5.0) g/dL 05/25/24 05/25/24 05/26/24 Range/Units 16:08 20:08 04:00 WBC 10.7 H (3.8-10.6) k/uL RBC 2.87 L (4.30-5.90) m/uL Hgb 9.2 L (13.0-17.5) gm/dL Hct 27.9 L (39.0-53.0) % Plt Count 124 L (150-450) k/uL Neutrophils # 9.1 H (1.3-7.7) k/uL Lymphocytes # 0.9 L (1.0-4.8) k/uL Chloride (98-107) mmol/L Glucose (74-99) mg/dL POC Glucose (mg/dL) 157 H 201 H (70-110) mg/dL Total Protein (6.3-8.2) g/dL Albumin (3.5-5.0) g/dL 05/26/24 05/26/24 Range/Units 04:00 06:26 WBC (3.8-10.6) k/uL RBC (4.30-5.90) m/uL Hgb (13.0-17.5) gm/dL Hct (39.0-53.0) % Plt Count (150-450) k/uL Neutrophils # (1.3-7.7) k/uL Lymphocytes # (1.0-4.8) k/uL Chloride 109 H (98-107) mmol/L Glucose 114 H (74-99) mg/dL POC Glucose (mg/dL) 122 H (70-110) mg/dL Total Protein 5.2 L (6.3-8.2) g/dL Albumin 3.4 L (3.5-5.0) g/dL
--- NOTE | 2024-05-26 15:44 | P.PN ---
Subjective Progress Note Date: 05/26/24 This is a 63-year-old male patient who underwent coronary artery bypass surgery and the patient is being seen in the intensive care unit postop. The patient had a stress-induced ischemia the patient underwent cardiac catheterization and the patient was found to have occluded LAD from proximal to midportion at the bifurcation of a large diagonal branch and significant disease involving the OM. The right coronary artery disease also showed mild obstructive disease. The patient underwent coronary bypass surgery with CHAMBERS to OM and SUNDAY to LAD. The patient remains intubated on the mechanical ventilator. At this point in time, the patient is sedated on propofol which is running at 40 mcg/kg/min. The patient is on mechanical ventilator on assist-control mode rate of 16, tidal volume of 550, FiO2 of 100% with a PEEP of 10. Blood gas showed a pH of 7.4 with a pCO2 of 40 and pO2 of 298 and accordingly the FiO2 was dropped down to 60%. Postop chest x-ray was noted and the patient has a right pleural and left pleural and the mediastinal chest tube. ET tube is in a good location. The patient also has Prue-Mallorie catheter in place. There is a left basilar atelectasis/pleural effusion noted. The cardiac output currently is at 4.0 with an index of 2.8. PA pressure 25/40. He is on no pressors. He is on insulin running at 1 unit an hour and the patient is in normal sinus rhythm. Hemoglobin is 11.2 with a white cell count of 11.9 and a platelet count of 146. Sugar is at 131. Comorbidities include hypertension hyperlipidemia. 05/25/2024, the patient is being seen for a follow-up. The patient is postop day #1. The patient is doing extremely well and the patient is currently on room air oxygen. No respiratory difficulties and the patient using incentive spirometer and is pulling approximately 750 cc. Chest x-ray shows no acute abnormalities. There are some atelectatic changes in the right upper lobe area. No evidence of any pneumothorax. Chest tubes are in place and the patient has a right pleural (mediastinal chest tube. The cardiac output is currently at 8.1 with an index of 3.7. Pulmonary artery pressure is 28/3. CVP is at 3. The patient is being a given IV fluids. Output from the left lower chest tube is 130 cc overnight and 300 cc since surgery. Right pleural chest tube has produced approximately 380 cc overnight and 800 cc since surgery. The cardiac rhythm is sinus. No focal neurological deficits. Blood work from today shows a white cell count of 9.7 with a hemoglobin 9.9 and platelet count of 133. Electrolytes are within normal limits. BUN is at 10 with a creatinine of 0.7. The patient was weaned off the mechanical ventilator and the patient was extubated yesterday without any major difficulties. 05/26/2024, the patient is postop day #2. The patient is doing extremely well. The patient was weaned off the mechanical ventilator and the patient was extubated and the patient is currently on room air oxygen. Hemodynamically stable. The chest tubes are all in place. Cardiac rhythm is sinus. No significant respiratory difficulties. The patient is using the incentive spirometer. The chest x-ray from today is showing some atelectatic changes in the lung bases along with postthoracotomy changes. There is improvement in the right perihilar infiltrate it was discussed earlier. Lines and catheters are all in place. No other significant abnormalities are noted. Blood work from today shows a WBC count of 10.7, hemoglobin 9.2 and a platelet count of 124. BUN 13 with a creatinine of 0.8 and a sodium levels at 137 and electrolytes are all within normal limits including the liver function tests. No other significant events overnight. Objective - Vital Signs Vital signs: Vital Signs Temp 98.2 F 05/26/24 08:00 Pulse 92 05/26/24 08:00 Resp 31 H 05/26/24 08:00 BP 122/68 05/26/24 07:00 Pulse Ox 92 L 05/26/24 08:00 FiO2 50 05/24/24 16:00 Intake & Output 05/25/24 05/26/24 05/26/24 18:59 06:59 18:59 Intake Total 1968.666 3226 Output Total 1680 965 Balance -664.521 4937 Weight 108.1 kg 103.1 kg Intake: IV 522 468 CO/CI 60 Pressure bag 72 78 Sodium Chloride 0.9% 1, 240 390 000 ml @ 30 mls/hr IV . Q24H [facility] Rx#:[id number] Sodium Chloride 0.9% 50 150 ml @ 0 mls/hr IV .STK-MED ONE with ceFAZolin 2,000 mg Rx#:[id number] Intake, IV Titration 4.823 Amount Insulin Regular 100 unit 4.823 In Sodium Chloride 0.9% 100 ml @ Per Protocol IV .Q0M [facility] Rx#:[id number] Oral 600 1600 Output: Chest Tube Drainage 510 480 Left Pleural 110 150 Mediastinal 240 80 Right Pleural 160 250 Urine 1170 485 Other: Voiding Method Indwelling Catheter Indwelling Catheter ABP, PAP, CO, CI - Last Documented Arterial Blood Pressure 127/50 Pulmonary Artery Pressure 23/6 Cardiac Output 6.7 Cardiac Index 3 - Exam CONSTITUTIONAL: Appears comfortable, cooperative, no acute distress RESPIRATORY: Lungs sounds diminished bilaterally. Respirations even, nonlabored. Currently on room air with oxygen saturation 94%. Able to achieve 1000 mL on incentive spirometry. Strong cough. CARDIOVASCULAR: S1, S2 present. Regular rate and rhythm, sinus rhythm on telemetry. Sternum stable. Palpable peripheral pulses bilaterally. No edema present. No calf pain or tenderness noted. Heart hugger in place with patient demonstrating appropriate use. Antiembolism stockings, SCDs present. GASTROINTESTINAL: Abdomen soft, nontender, nondistended. Active bowel sounds present 4 quadrants. Tolerating diet. Positive flatus GENITOURINARY: Patino present draining clear, yellow urine. Output overnight 30-50 mL per hour, 1640 mL in the last 24 hours INTEGUMENTARY: Skin is warm and dry with evidence of good perfusion. Anterior chest incision well approximated and covered with dry intact dressing NEUROLOGIC: Cranial nerves II through XII intact MUSKULOSKELETAL: Able to move all extremities, strength equal bilaterally, gait normal PSYCHIATRIC: Alert and oriented to person place and time, appropriate affect, intact judgment and insight INVASIVE LINES AND TUBES: Mediastinal/left/right pleural chest tubes present and connected to wall suction, no air leak present. Mediastinal tube with 50 mL serosanguineous drainage overnight, 300 mL in the last 24 hours. Left pleural chest tube with 100 mL serosanguineous drainage overnight, 200 mL in the last 24 hours. Right pleural chest tube with 150 mL serosanguineous drainage overnight, 250 mL in the last 24 hours. Right internal jugular cordis, right radial arterial line present. - Labs CBC & Chem 7: 05/26/24 04:00 05/26/24 04:00 Labs: Abnormal Lab Results - Last 24 Hours (Table) 05/25/24 05/25/2405/25/24 Range/Units 09:16 10:00 14:17 WBC (3.8-10.6) k/uL RBC (4.30-5.90) m/uL Hgb (13.0-17.5) gm/dL Hct (39.0-53.0) % Plt Count (150-450) k/uL Neutrophils # (1.3-7.7) k/uL Lymphocytes # (1.0-4.8) k/uL Chloride (98-107) mmol/L Glucose (74-99) mg/dL POC Glucose (mg/dL) 179 H 126 H 160 H (70-110) mg/dL Total Protein (6.3-8.2) g/dL Albumin (3.5-5.0) g/dL 05/25/24 05/25/24 05/26/24 Range/Units 16:08 20:08 04:00 WBC 10.7 H (3.8-10.6) k/uL RBC 2.87 L (4.30-5.90) m/uL Hgb 9.2 L (13.0-17.5) gm/dL Hct 27.9 L (39.0-53.0) % Plt Count 124 L (150-450) k/uL Neutrophils # 9.1 H (1.3-7.7) k/uL Lymphocytes # 0.9 L (1.0-4.8) k/uL Chloride (98-107) mmol/L Glucose (74-99) mg/dL POC Glucose (mg/dL) 157 H 201 H (70-110) mg/dL Total Protein (6.3-8.2) g/dL Albumin (3.5-5.0) g/dL 05/26/24 05/26/24 Range/Units 04:00 06:26 WBC (3.8-10.6) k/uL RBC (4.30-5.90) m/uL Hgb (13.0-17.5) gm/dL Hct (39.0-53.0) % Plt Count (150-450) k/uL Neutrophils # (1.3-7.7) k/uL Lymphocytes # (1.0-4.8) k/uL Chloride 109 H (98-107) mmol/L Glucose 114 H (74-99) mg/dL POC Glucose (mg/dL) 122 H (70-110) mg/dL Total Protein 5.2 L (6.3-8.2) g/dL Albumin 3.4 L (3.5-5.0) g/dL Assessment and Plan Plan: Multivessel coronary artery disease, s/p coronary bypass surgery with CHAMBERS to OM and SUNDAY to LAD, patient is currently postop day # 2. Hemodynamically stable. No pressors. The patient has adequate cardiac output and index. CVP is slightly low and the patient would benefit from IV fluids. Chest x-ray shows some right upper lobe atelectatic changes. Currently on room air oxygen. Postthoracotomy, extubated, currently on room air oxygen. The chest tubes are still in place. Atelectatic changes right perihilar area improved on today's chest x-ray. Hypertension Hyperlipidemia History of skin cancer Plan Encouraged use of incentive spirometer Chest x-ray from today was noted. Continue aggressive pulmonary toileting Continue aspirin and Plavix Patient is on beta-blockers Patient is on high-dose statins Will discontinue the chest tube today Urine output is adequate Cardiac rhythm is sinus and will continue to follow.
[2024-05-26 16:40] LABS: Glucose,Whole Blood 137 mg/dL (70-110)
[2024-05-26] MEDS: ALBUMIN HUMAN 25% 50 ML IV ONE (18:22)
[2024-05-26] MEDS: ASPIRIN 325 MG TAB PO ONE (18:23)
[2024-05-26] MEDS: CALCIUM CHLORIDE 100 MG/ML 10 ML SYRINGE IV ONE (18:23)
[2024-05-26] MEDS: ALBUMIN HUMAN 5% 500 ML IVPB ONE (18:23)
[2024-05-26] MEDS: CARDIOPLEGIC SOLN (K+ 16 MEQ/L 1,000 ML with SODIUM BICARB (1 MEQ/ML) 20 ML, LIDOCAINE ... PERFUSION ONE (18:24)
[2024-05-26] MEDS: ceFAZolin 1,000 MG in SODIUM CHLORIDE 0.9% IRRIGATIO 1,000 ML IRRIGATION ONE (18:24)
[2024-05-26] MEDS: HEPARIN SODIUM 1,000 UN/ML (10ML VL) IV ONE (18:25)
[2024-05-26] MEDS: CLEVIDIPINE BUTYRATE 25 MG in EMPTY BAG 1 BAG IV ONE (18:25)
[2024-05-26] MEDS: CHLORHEXIDINE GLUCONATE 15 ML CUP MUCOUS MEM ONE (18:25)
[2024-05-26] MEDS: DILTIAZEM 125 MG in SODIUM CHLORIDE 0.9% 100 ML IV ONE (18:25)
[2024-05-26] MEDS: HEPARIN SODIUM,PORCINE (1 ML) 5,000 UNIT in SODIUM CHLORIDE 0.9% 500 ML 500 ML IV ONE (18:26)
[2024-05-26] MEDS: INSULIN REGULAR 100 UNIT in SODIUM CHLORIDE 0.9% 100 ML IV ONE (18:26)
[2024-05-26] MEDS: MAGNESIUM SULFATE 16.24 MEQ in EMPTY SYRINGE 1 SYR IV ONE (18:27)
[2024-05-26] MEDS: NITROGLYCERIN SL TABS 0.4 MG TAB SUBLINGUAL ONE (18:27)
[2024-05-26] MEDS: MANNITOL 25% 12.5 GM/50 ML VIAL IV ONE (18:27)
[2024-05-26] MEDS: NITROGLYCERIN-D5W PMX 25 MG/250 ML BTL IV ONE (18:27)
[2024-05-26] MEDS: NITROGLYCERIN-D5W PMX 50 MG in DEXTROSE/WATER 1 250ML.BAG IV ONE (18:27)
[2024-05-26] MEDS: NOREPINEPHRINE 4 MG in SODIUM CHLORIDE 0.9% 250 ML IV ONE (18:28)
[2024-05-26] MEDS: PHENYLEPHRINE 10 MG/ML VIAL IV ONE (18:28)
[2024-05-26] MEDS: PROTAMINE SULFATE 10 MG/ML 25 ML VIAL IV ONE (18:28)
[2024-05-26] MEDS: PHENYLEPHRINE 40 MG in SODIUM CHLORIDE 0.9% 250 ML IV ONE (18:28)
[2024-05-26] MEDS: PAPAVERINE 360 MG in SODIUM CHLORIDE 0.9% 90 ML IV ONE (18:28)
[2024-05-26] MEDS: PROTAMINE SULFATE 250 MG in EMPTY BAG 1 BAG IV ONE (18:28)
[2024-05-26] MEDS: TRANEXAMIC ACID 2,000 MG in SODIUM CHLORIDE 0.9% 80 ML IV ONE (18:29)
[2024-05-26] MEDS: SODIUM CHLORIDE 0.9% 1,000 ML IV ONE (18:29)
[2024-05-26] MEDS: MUPIROCIN 2% OINT 22 GM TUBE NASAL ONE (18:29)
[2024-05-26] MEDS: SODIUM BICARB 8.4% 50 ML SYR (1 MEQ/ML) IV ONE (18:29)
[2024-05-26 20:18] LABS: Glucose,Whole Blood 135 mg/dL (70-110)
[2024-05-27] MEDS ORDERED: ACETAMINOPHEN TAB 325 MG TAB ONE (04:00)
[2024-05-27 06:04] LABS: Glucose,Whole Blood 109 mg/dL (70-110)
[2024-05-27 08:29] LABS: Basophils % (A) 0 %; Eosinophils # (A) 0.3 k/uL (0-0.7); Eosinophils % (A) 3 %; HCT 30.7 % (39.0-53.0); HGB 10.2 gm/dL (13.0-17.5); Lymphocytes # (A) 0.9 k/uL (1.0-4.8); Lymphocytes % (A) 10 %; MCH 32.3 pg (25.0-35.0); MCV 97.7 fL (80.0-100.0); Mean Platelet Volume 8.8; Monocytes # (A) 0.4 k/uL (0-1.0); Monocytes % (A) 4 %; Neutrophils % (A) 83 %; Platelet Count 167 k/uL (150-450); RBC 3.15 m/uL (4.30-5.90); RDW 12.1 % (11.5-15.5); WBC 9.7 k/uL (3.8-10.6)
[2024-05-27 09:17] LABS: ALT 12 U/L (4-49); AST 24 U/L (17-59); African American GFR (CKD) >90 (>60 ml/min/1.73 sqM); Albumin 3.4 g/dL (3.5-5.0); Alkaline Phosphatase 49 U/L (38-126); Anion Gap 3 mmol/L; Blood Urea Nitrogen 14 mg/dL (9-20); Calcium 8.5 mg/dL (8.4-10.2); Carbon Dioxide 28 mmol/L (22-30); Chloride 106 mmol/L (98-107); Glucose 137 mg/dL (74-99); Non-African American GFR(CKD) >90 (>60 ml/min/1.73 sqM); Potassium 4.1 mmol/L (3.5-5.1); Sodium 137 mmol/L (137-145); Total Bilirubin 0.7 mg/dL (0.2-1.3); Total Protein 5.5 g/dL (6.3-8.2)
--- NOTE | 2024-05-27 09:55 | XR ---
EXAMINATION TYPE: XR chest 1V portable DATE OF EXAM: 05/26/2024 COMPARISON: 05/26/2024 INDICATION: Post cardiac surgery TECHNIQUE: Single frontal view of the chest is obtained. FINDINGS: The heart size is prominent. The pulmonary vasculature is normal. Streak opacities at the left base. There is blunting left costophrenic angle. Correlate for atelectas is. Bilateral chest tubes remain present. Minimal apical pneumothoraces may be present IMPRESSION: 1. Minimal bilateral apical pneumothorax. 2. Chest tubes remain in position. 3. Atelectasis left base with small left pleural effusion. [facility], , 05/27/2024 9:50 AM
--- NOTE | 2024-05-27 11:00 | P.PN ---
Subjective Progress Note Date: 05/27/24 Principal diagnosis: Coronary artery disease, unstable angina. Previous medical history of hypertension, hyperlipidemia, basal cell skin cancer, daily EtOH use, previous tobacco dependence, and family history of premature coronary artery disease with mother from [place] at 60 years old POD #3 off-pump coronary artery bypass graft x 2 with right internal mammary artery to left anterior descending artery and left internal mammary artery to obtuse marginal with ligation of the left atrial appendage with 35mm AtriCure clip Postoperative acucte blood loss anemia and thrombocytopenia, expected given hemodilution The patient was seen and examined this morning with Dr. Tipton sitting up in a recliner in no acute distress. Remains in sinus rhythm, hemodynamically stable. States pain is controlled on current medication regimen, denies shortness of breath. Currently on room air with oxygen saturation in the mid 90s. Right/left pleural chest tubes all remain. Chest x-ray, labs reviewed. Patient has been ambulatory in the [place] without difficulty. No other new concerns. Objective - Vital Signs Vital signs: Vital Signs Temp 98.4 F 05/27/24 08:00 Pulse 83 05/27/24 08:00 Resp 14 05/27/24 08:00 BP 109/66 05/27/24 08:00 Pulse Ox 95 05/27/24 08:00 FiO2 50 05/24/24 16:00 Intake & Output 05/26/24 05/27/24 05/27/24 18:59 06:59 18:59 Intake Total 144 240 Output Total 300 360 Balance -156 -360 240 Weight 103.4 kg Intake: IV 144 Pressure bag 24 Sodium Chloride 0.9% 1, 120 000 ml @ 30 mls/hr IV . Q24H [facility] Rx#:[id number] Oral 240 Output: Chest Tube Drainage 150 110 Left Pleural 40 80 Mediastinal 20 Right Pleural 90 30 Urine 150 250 Other: Voiding Method Toilet Toilet Toilet # Voids 1 # Bowel Movements 1 ABP, PAP, CO, CI - Last Documented Arterial Blood Pressure 127/50 Pulmonary Artery Pressure 23/6 Cardiac Output 6.7 Cardiac Index 3 - Exam CONSTITUTIONAL: Appears comfortable, cooperative, no acute distress RESPIRATORY: Lungs sounds diminished bilaterally. Respirations even, nonlabored. Currently on room air with oxygen saturation 95%. Able to achieve 1000 mL on incentive spirometry. Strong cough. CARDIOVASCULAR: S1, S2 present. Regular rate and rhythm, sinus rhythm on telemetry. Sternum stable. Palpable peripheral pulses bilaterally. No edema present. No calf pain or tenderness noted. Heart hugger in place with patient demonstrating appropriate use. Antiembolism stockings, SCDs present. GASTROINTESTINAL: Abdomen soft, nontender, nondistended. Active bowel sounds present 4 quadrants. Tolerating diet. Positive bowel movement 05/26 GENITOURINARY: Continues to void INTEGUMENTARY: Skin is warm and dry with evidence of good perfusion. Anterior chest incision well approximated and covered with dry intact dressing NEUROLOGIC: Cranial nerves II through XII intact MUSKULOSKELETAL: Able to move all extremities, strength equal bilaterally, gait normal PSYCHIATRIC: Alert and oriented to person place and time, appropriate affect, intact judgment and insight INVASIVE LINES AND TUBES: Left/right pleural chest tubes present and connected to wall suction, no air leak present. Left pleural chest tube with 180 mL serosanguineous drainage in the last 24 hours. Right pleural chest tube with 170 mL serosanguineous drainage in the last 24 hours. - Allied health notes Allied health notes reviewed: nursing - Labs CBC & Chem 7: 05/27/24 07:59 05/27/24 07:59 Labs: Abnormal Lab Results - Last 24 Hours (Table) 05/26/24 05/26/24 05/26/24 Range/Units 11:39 16:38 20:17 RBC (4.30-5.90) m/uL Hgb (13.0-17.5) gm/dL Hct (39.0-53.0) % Neutrophils # (1.3-7.7) k/uL Lymphocytes # (1.0-4.8) k/uL Glucose (74-99) mg/dL POC Glucose (mg/dL) 131 H 137 H 135 H (70-110) mg/dL Total Protein (6.3-8.2) g/dL Albumin (3.5-5.0) g/dL 05/27/24 05/27/24 Range/Units 07:59 07:59 RBC 3.15 L (4.30-5.90) m/uL Hgb 10.2 L (13.0-17.5) gm/dL Hct 30.7 L (39.0-53.0) % Neutrophils # 8.0 H (1.3-7.7) k/uL Lymphocytes # 0.9 L (1.0-4.8) k/uL Glucose 137 H (74-99) mg/dL POC Glucose (mg/dL) (70-110) mg/dL Total Protein 5.5 L (6.3-8.2) g/dL Albumin 3.4 L (3.5-5.0) g/dL - Imaging and Cardiology Chest x-ray: image reviewed Assessment and Plan Assessment: Coronary artery disease, unstable angina, status post off-pump coronary artery bypass graft x 2 Postoperative acucte blood loss anemia and thrombocytopenia, expected given hemodilution History of hypertension Hyperlipidemia, treated, cholesterol 275, LDL 148, TG 335 Basal cell skin cancer Daily EtOH use Previous tobacco dependence, preoperative FEV1 87% of predicted Family history of premature coronary artery disease with mother from [place] at 60 years old Plan: Continue to maximize medical therapy with aspirin, statin, Plavix, beta-maico. Will increase beta-maico therapy as tolerated Encourage incentive spirometry use 10 times every hour while awake. Bronchodilators per pulmonology Increase activity, ambulate as tolerated. PT/OT/cardiac rehab consulted Will monitor daily labs and x-rays. Electrolyte replacement per protocol GI/DVT prophylaxis Insulin management per internal medicine, patient is not diabetic, preoperative hemoglobin A1c 5.6% Pain control per current medication regimen Will discontinue pleural chest tubes Continue to record strict accurate intake and output Daily weights Discharge planning in progress, anticipate discharge to home with home care in the next 24 hours More recommendations to follow as patient progresses
[2024-05-27 11:53] LABS: Glucose,Whole Blood 121 mg/dL (70-110)
--- NOTE | 2024-05-27 13:34 | P.PN ---
Subjective Progress Note Date: 05/27/24 PROGRESS NOTE The patient is a 63-year-old male who is followed by Dr. Torrez who was admitted today to undergo coronary bypass grafting by Dr. Tipton. He was evaluated as an outpatient by Dr. Torrez and was found to have moderate area of stress-induced ischemia, he subsequently underwent cardiac catheterization that showed occluded LAD from the proximal to the midportion at the bifurcation of a large diagonal branch and significant disease in the OM. The right coronary artery had mild obstructive disease. He underwent CABG today with CHAMBERS to the OM and SUNDAY to the LAD. He is intubated and sedated, hemodynamically stable. He is in sinus mechanism on no vasopressors. He has good urinary output. Preoperatively his systolic function was normal by echocardiography. His coronary risks factor are positive for hypertension and hyperlipidemia May 25 The patient is extubated, sitting up in the chair, feeling well. He denies any significant dyspnea, dizziness or palpitations. He continues to be in sinus mechanism. He has soreness in the chest but he is using his incentive spirometry. He is on no vasopressors. His urinary output has been good. May 26: The patient is feeling well this morning, denies any chest pain, dizziness or palpitations. Hemodynamically stable. He is ambulating. He continues to be in sinus mechanism. His urinary output is stable. He is on no vasopressors. May 27 Patient has been transferred out of the intensive care unit and seen today on t cardiac stepdown unit. He denies having any chest pain or chest pressure. No shortness of breath. He is utilizing incentive spirometry but will increase frequency. Blood pressure 133/82, heart rate 75, pulse ox 98% on room air. WBC 9.7, hemoglobin 10.2, creatinine 0.85, potassium 4.1. Yesterday, beta-maico was increased to 25 mg twice daily. Patient states that he is expecting to be discharged home on Thursday. Medications: Aspirin, Lipitor 40 mg daily, Plavix 75 mg daily, metoprolol 25 mg twice a day PHYSICAL EXAMINATION: Vital signs reviewed LUNGS: Decreased breath sounds at the bases HEART: Regular rate and rhythm, S1, S2. No S3. No systolic murmur ABDOMEN: Soft, nontender, no organomegaly EXTREMETIES: No edema IMPRESSION: 1. Status post CABG with CHAMBERS to the OM and SUNDAY to the LAD 2. History of hyperlipidemia 3. History of hypertension PLAN: 1. Continue present therapy 2. Continue incentive spirometry 3. Increase physical activity 4. Anticipate discharge home on Thursday. Patient will follow-up with Dr. Torrez in the office in 2 weeks. Nurse practitioner note has been reviewed, I agree with documented findings and plan of care. Patient was seen and examined. Objective - Vital Signs Vital signs: Vital Signs Temp 98.2 F 05/27/24 04:00 Pulse 76 05/27/24 07:55 Resp 14 05/27/24 04:00 BP 139/80 05/27/24 04:00 Pulse Ox 94 L 05/27/24 04:00 FiO2 50 05/24/24 16:00 Intake & Output 05/26/24 05/27/24 05/27/24 18:59 06:59 18:59 Intake Total 144 240 Output Total 300 360 Balance -156 -360 240 Weight 103.4 kg Intake: IV 144 Pressure bag 24 Sodium Chloride 0.9% 1, 120 000 ml @ 30 mls/hr IV . Q24H GILDA Rx#:[id number] Oral 240 Output: Chest Tube Drainage 150 110 Left Pleural 40 80 Mediastinal 20 Right Pleural 90 30 Urine 150 250 Other: Voiding Method Toilet Toilet # Voids 1 # Bowel Movements 1 ABP, PAP, CO, CI - Last Documented Arterial Blood Pressure 127/50 Pulmonary Artery Pressure 23/6 Cardiac Output 6.7 Cardiac Index 3 - Labs CBC & Chem 7: 05/27/24 07:59 05/27/24 07:59 Labs: Abnormal Lab Results - Last 24 Hours (Table) 05/26/24 05/26/24 05/26/24 Range/Units 11:39 16:38 20:17 RBC (4.30-5.90) m/uL Hgb (13.0-17.5) gm/dL Hct (39.0-53.0) % Neutrophils # (1.3-7.7) k/uL Lymphocytes # (1.0-4.8) k/uL Glucose (74-99) mg/dL POC Glucose (mg/dL) 131 H 137 H 135 H (70-110) mg/dL Total Protein (6.3-8.2) g/dL Albumin (3.5-5.0) g/dL 09/27/24 09/27/24 Range/Units 07:59 07:59 RBC 3.15 L (4.30-5.90) m/uL Hgb 10.2 L (13.0-17.5) gm/dL Hct 30.7 L (39.0-53.0) % Neutrophils # 8.0 H (1.3-7.7) k/uL Lymphocytes # 0.9 L (1.0-4.8) k/uL Glucose 137 H (74-99) mg/dL POC Glucose (mg/dL) (70-110) mg/dL Total Protein 5.5 L (6.3-8.2) g/dL Albumin 3.4 L (3.5-5.0) g/dL
--- NOTE | 2024-05-27 13:59 | P.PN ---
Subjective Progress Note Date: 05/27/24 This is a 63-year-old male patient who underwent coronary artery bypass surgery and the patient is being seen in the intensive care unit postop. The patient had a stress-induced ischemia the patient underwent cardiac catheterization and the patient was found to have occluded LAD from proximal to midportion at the bifurcation of a large diagonal branch and significant disease involving the OM. The right coronary artery disease also showed mild obstructive disease. The patient underwent coronary bypass surgery with CHAMBERS to OM and SUNDAY to LAD. The patient remains intubated on the mechanical ventilator. At this point in time, the patient is sedated on propofol which is running at 40 mcg/kg/min. The patient is on mechanical ventilator on assist-control mode rate of 16, tidal volume of 550, FiO2 of 100% with a PEEP of 10. Blood gas showed a pH of 7.4 with a pCO2 of 40 and pO2 of 298 and accordingly the FiO2 was dropped down to 60%. Postop chest x-ray was noted and the patient has a right pleural and left pleural and the mediastinal chest tube. ET tube is in a good location. The patient also has [place] catheter in place. There is a left basilar atelectasis/pleural effusion noted. The cardiac output currently is at 4.0 with an index of 2.8. PA pressure 25/40. He is on no pressors. He is on insulin running at 1 unit an hour and the patient is in normal sinus rhythm. Hemoglobin is 11.2 with a white cell count of 11.9 and a platelet count of 146. Sugar is at 131. Comorbidities include hypertension hyperlipidemia. 05/25/2024, the patient is being seen for a follow-up. The patient is postop day #1. The patient is doing extremely well and the patient is currently on room air oxygen. No respiratory difficulties and the patient using incentive spirometer and is pulling approximately 750 cc. Chest x-ray shows no acute abnormalities. There are some atelectatic changes in the right upper lobe area. No evidence of any pneumothorax. Chest tubes are in place and the patient has a right pleural (mediastinal chest tube. The cardiac output is currently at 8.1 with an index of 3.7. Pulmonary artery pressure is 28/3. CVP is at 3. The patient is being a given IV fluids. Output from the left lower chest tube is 130 cc overnight and 300 cc since surgery. Right pleural chest tube has produced approximately 380 cc overnight and 800 cc since surgery. The cardiac rhythm is sinus. No focal neurological deficits. Blood work from today shows a white cell count of 9.7 with a hemoglobin 9.9 and platelet count of 133. Electrolytes are within normal limits. BUN is at 10 with a creatinine of 0.7. The patient was weaned off the mechanical ventilator and the patient was extubated yesterday without any major difficulties. 05/26/2024, the patient is postop day #2. The patient is doing extremely well. The patient was weaned off the mechanical ventilator and the patient was extubated and the patient is currently on room air oxygen. Hemodynamically stable. The chest tubes are all in place. Cardiac rhythm is sinus. No significant respiratory difficulties. The patient is using the incentive spirometer. The chest x-ray from today is showing some atelectatic changes in the lung bases along with postthoracotomy changes. There is improvement in the right perihilar infiltrate it was discussed earlier. Lines and catheters are all in place. No other significant abnormalities are noted. Blood work from today shows a WBC count of 10.7, hemoglobin 9.2 and a platelet count of 124. BUN 13 with a creatinine of 0.8 and a sodium levels at 137 and electrolytes are all within normal limits including the liver function tests. No other significant events overnight. 05/27/2024, I am seeing the patient for a follow-up. The patient is doing well with no specific complaints. The patient is currently postop day #3 following coronary artery bypass surgery. The patient is sitting up in a chair and the patient is calm and comfortable. On today's evaluation, the patient is producing approximately 180 cc of serosanguineous drainage from the left-sided chest tube and a total of 170 cc from the right-sided chest tube. No evidence of any air leak. Using incentive spirometer and pulling more than 1000. No other significant events overnight. The patient underwent a of pulm two-vessel bypass surgery. Neurologically intact. The hemoglobin is at 10.2 with a white cell count of 9.7 and platelet count of 167. All of the electrolytes are within normal limits. The patient is currently on aspirin, metoprolol 25 mg p.o. twice a day, and high-dose statins. Pain is under adequate control for now. He is also on Plavix. Objective - Vital Signs Vital signs: Vital Signs Temp 98.2 F 05/27/24 04:00 Pulse 76 05/27/24 07:55 Resp 14 05/27/24 04:00 BP 139/80 05/27/24 04:00 Pulse Ox 94 L 05/27/24 04:00 FiO2 50 05/24/24 16:00 Intake & Output 05/26/24 05/27/24 05/27/24 18:59 06:59 18:59 Intake Total 144 240 Output Total 300 360 Balance -156 -360 240 Weight 103.4 kg Intake: IV 144 Pressure bag 24 Sodium Chloride 0.9% 1, 120 000 ml @ 30 mls/hr IV . Q24H GILDA Rx#:[id number] Oral 240 Output: Chest Tube Drainage 150 110 Left Pleural 40 80 Mediastinal 20 Right Pleural 90 30 Urine 150 250 Other: Voiding Method Toilet Toilet # Voids 1 # Bowel Movements 1 ABP, PAP, CO, CI - Last Documented Arterial Blood Pressure 127/50 Pulmonary Artery Pressure 23/6 Cardiac Output 6.7 Cardiac Index 3 - Exam CONSTITUTIONAL: Appears comfortable, cooperative, no acute distress RESPIRATORY: Lungs sounds diminished bilaterally. Respirations even, nonlabored. Currently on room air with oxygen saturation 95%. Able to achieve 1000 mL on incentive spirometry. Strong cough. CARDIOVASCULAR: S1, S2 present. Regular rate and rhythm, sinus rhythm on telemetry. Sternum stable. Palpable peripheral pulses bilaterally. No edema present. No calf pain or tenderness noted. Heart hugger in place with patient demonstrating appropriate use. Antiembolism stockings, SCDs present. GASTROINTESTINAL: Abdomen soft, nontender, nondistended. Active bowel sounds present 4 quadrants. Tolerating diet. Positive bowel movement 05/26 GENITOURINARY: Continues to void INTEGUMENTARY: Skin is warm and dry with evidence of good perfusion. Anterior chest incision well approximated and covered with dry intact dressing NEUROLOGIC: Cranial nerves II through XII intact MUSKULOSKELETAL: Able to move all extremities, strength equal bilaterally, gait normal PSYCHIATRIC: Alert and oriented to person place and time, appropriate affect, intact judgment and insight INVASIVE LINES AND TUBES: Left/right pleural chest tubes present and connected to wall suction, no air leak present. Left pleural chest tube with 180 mL serosanguineous drainage in the last 24 hours. Right pleural chest tube with 170 mL serosanguineous drainage in the last 24 hours. - Labs CBC & Chem 7: 05/27/24 07:59 05/27/24 07:59 Labs: Abnormal Lab Results - Last 24 Hours (Table) 05/26/24 05/26/24 05/26/24 Range/Units 11:39 16:38 20:17 RBC (4.30-5.90) m/uL Hgb (13.0-17.5) gm/dL Hct (39.0-53.0) % Neutrophils # (1.3-7.7) k/uL Lymphocytes # (1.0-4.8) k/uL Glucose (74-99) mg/dL POC Glucose (mg/dL) 131 H 137 H 135 H (70-110) mg/dL Total Protein (6.3-8.2) g/dL Albumin (3.5-5.0) g/dL 05/27/24 05/27/24 Range/Units 07:59 07:59 RBC 3.15 L (4.30-5.90) m/uL Hgb 10.2 L (13.0-17.5) gm/dL Hct 30.7 L (39.0-53.0) % Neutrophils # 8.0 H (1.3-7.7) k/uL Lymphocytes # 0.9 L (1.0-4.8) k/uL Glucose 137 H (74-99) mg/dL POC Glucose (mg/dL) (70-110) mg/dL Total Protein 5.5 L (6.3-8.2) g/dL Albumin 3.4 L (3.5-5.0) g/dL Assessment and Plan Plan: Multivessel coronary artery disease, s/p coronary bypass surgery with CHAMBERS to OM and SUNDAY to LAD, patient is currently postop day #3. Hemodynamically stable. Clinically and hemodynamically stable. Postthoracotomy, extubated, currently on room air oxygen. The chest tubes are still in place. Atelectatic changes right perihilar area improved on today's chest x-ray. The patient has a right and left pleural chest tubes and output has been noted. Hypertension Hyperlipidemia History of skin cancer Plan Encouraged use of incentive spirometer Chest x-ray from today was noted. Continue aggressive pulmonary toileting Continue aspirin and Plavix Patient is on beta-blockers Patient is on high-dose statins Will discontinue the chest tube today Urine output is adequate Cardiac rhythm is sinus and will continue to follow.
--- NOTE | 2024-05-27 14:18 | P.PN ---
Subjective Progress Note Date: 05/27/24 63 year old M with PMH of CAD, HTN, HLD, history of basal cell skin CA presents to [facility] for elective surgery. He underwent CABG x 2 with SUNDAY to LAD and CHAMBERS to obtuse marginal with Dr. Tipton. He is seen post operatively in the ICU. [facility] Physicians consulted for medical management of this patient. Extubated successfully on 05/24. Patino catheter, mediastinal chest tube, cordis, arterial line discontinued 05/26. 05/27 Patient was seen and examined. Doing well. CBC, CMP significant for RBC 3.15, Hg 10.2, Hct 30.7, glu 137, alb 3.4. POC glucose 109-137 over the past 24H, no insulin over the ISS given. CT surgery note reviewed, plans to discontinue bilateral chest tubes today. BP 139/80, HR 79, T 98.2, RR 14, 94% on RA. General: non toxic, no distress, appears at stated age Derm: warm, dry, sternal scar dressing c/d/i Head: atraumatic, normocephalic, symmetric Eyes: EOMI, no lid lag, anicteric sclera Mouth: no lip lesion, mucus membranes moist Cardiovascular: S1S2 reg, no murmur Lungs: Clear to auscultation bilateral, no rhonchi, no rales , no accessory muscle use Abdominal: soft, non distended Ext: no gross muscle atrophy, no edema, no contractures, bilateral LE wrapped c/d/i Neuro: No focal neurologic deficits Psych: Alert and oriented Based on my assessment of this patient, this patient meets a high complexity level of care. Acute blood loss anemia: Expected result of surgery. Trend daily Hg. Leukocytosis: Likely reactive. No fever. No signs of active infection. Monitor fever profile. CAD status post CABG x 2 with SUNDAY to LAD and CHAMBERS to obtuse marginal with Dr. Tipton POD 3: ASA 325 mg PO QD. Lipitor 40 mg PO QAM. Plavix 75 mg PO QD. Metoprolol 25 mg PO BID. Hypertension: Metoprolol as above. Dyslipidemia: Lipitor as above. CODE STATUS: FULL CODE. DVT Prophylaxis: Heparin SQ GI Prophylaxis: Protonix PO Designated medical POA if patient is not able to make medical decisions for themselves: I have reviewed the following art sales consultant notes: CT surgery, Cardiology, Pulmonary. I have reviewed the results of the following tests: CBC, CMP. I have ordered the following tests: I have discussed the care of this patient with the following independent historian: I have independently interpreted the following test below: I have discussed the management of this patient with the following physician: Objective - Vital Signs Vital signs: Vital Signs Temp 98.2 F 05/27/24 04:00 Pulse 76 05/27/24 07:55 Resp 14 05/27/24 04:00 BP 139/80 05/27/24 04:00 Pulse Ox 94 L 05/27/24 04:00 FiO2 50 05/24/24 16:00 Intake & Output 05/26/24 05/27/24 05/27/24 18:59 06:59 18:59 Intake Total 144 Output Total 300 360 Balance -156 -360 Weight 103.4 kg Intake: IV 144 Pressure bag 24 Sodium Chloride 0.9% 1, 120 000 ml @ 30 mls/hr IV . Q24H GILDA Rx#:[id number] Output: Chest Tube Drainage 150 110 Left Pleural 40 80 Mediastinal 20 Right Pleural 90 30 Urine 150 250 Other: Voiding Method Toilet Toilet # Voids 1 # Bowel Movements 1 ABP, PAP, CO, CI - Last Documented Arterial Blood Pressure 127/50 Pulmonary Artery Pressure 23/6 Cardiac Output 6.7 Cardiac Index 3 - Labs CBC & Chem 7: 05/27/24 07:59 05/27/24 07:59 Labs: Abnormal Lab Results - Last 24 Hours (Table) 05/26/24 05/26/24 05/26/24 Range/Units 11:39 16:38 20:17 POC Glucose (mg/dL) 131 H 137 H 135 H (70-110) mg/dL
[2024-05-27 16:46] LABS: Glucose,Whole Blood 158 mg/dL (70-110)
[2024-05-27 20:10] LABS: Glucose,Whole Blood 141 mg/dL (70-110)
[2024-05-28 03:56] VITALS: RESP 16
[2024-05-28 06:06] LABS: Glucose,Whole Blood 119 mg/dL (70-110)
--- NOTE | 2024-05-28 06:51 | XR ---
EXAMINATION TYPE: XR chest 2V DATE OF EXAM: 05/28/2024 COMPARISON: 05/27/2024 HISTORY: Postcardiac surgery. TECHNIQUE: Frontal and lateral views of the chest are obtained. FINDINGS: There are postsurgical changes of recent cardiac surgery. There is been interval removal of the bilateral chest tubes. There is no change in the tiny biapical pneumothoraces. There is no change in the lung base opacification likely a combination of atelectasis and small pleur al effusion. The pulmonary vasculature is not congested and the heart size is normal. The osseous structures are intact IMPRESSION: 1. No change in the left lung opacity consistent with small effusion probable mild atelectasis. 2. No change in the tiny biapical pneumothorax. 3. Removal of the bilateral chest tubes. 4. Postsurgical changes of recent cardiac surgery. [facility], , 05/28/2024 6:48 AM
[2024-05-28 07:19] LABS: HCT 29.1 % (39.0-53.0); HGB 9.8 gm/dL (13.0-17.5); MCH 32.4 pg (25.0-35.0); MCHC 33.7 g/dL (31.0-37.0); Platelet Count 236 k/uL (150-450); RBC 3.03 m/uL (4.30-5.90); RDW 12.6 % (11.5-15.5); WBC 9.9 k/uL (3.8-10.6)
[2024-05-28 07:41] LABS: African American GFR (CKD) >90 (>60 ml/min/1.73 sqM); Anion Gap 4 mmol/L; Blood Urea Nitrogen 14 mg/dL (9-20); Calcium 8.7 mg/dL (8.4-10.2); Carbon Dioxide 28 mmol/L (22-30); Chloride 106 mmol/L (98-107); Glucose 121 mg/dL (74-99); Non-African American GFR(CKD) >90 (>60 ml/min/1.73 sqM); Potassium 4.5 mmol/L (3.5-5.1); Sodium 138 mmol/L (137-145)
--- NOTE | 2024-05-28 10:54 | P.PN ---
Subjective Progress Note Date: 05/28/24 63 year old M with PMH of CAD, HTN, HLD, history of basal cell skin CA presents to [facility] for elective surgery. He underwent CABG x 2 with SUNDAY to LAD and CHAMBERS to obtuse marginal with Dr. Tipton. He is seen post operatively in the ICU. [facility] Physicians consulted for medical management of this patient. Extubated successfully on 05/24. Patino catheter, mediastinal chest tube, cordis, arterial line discontinued 05/26. Bilateral chest tubes discontinued 05/27. 05/28 Patient was seen and examined. Doing well. CBC significant for RBC 3.03, Hg 9.8, Hct 29.1. BMP glu 121. POC glucose 109-158 over the past 24H, 2 units of Novolog over the ISS given. CXR shows left lung opacity probable atelectasis, tiny biapical pneumothorax. Discussed with Dr. Carrero, hopeful plans for discharge home today. BP 130/80, HR 75, T 98.3, RR 16, 97% on RA. General: non toxic, no distress, appears at stated age Derm: warm, dry, sternal scar intact Head: atraumatic, normocephalic, symmetric Eyes: EOMI, no lid lag, anicteric sclera Mouth: no lip lesion, mucus membranes moist Cardiovascular: S1S2 reg, no murmur Lungs: Clear to auscultation bilateral, no rhonchi, no rales , no accessory muscle use Ext: no gross muscle atrophy, no edema, no contractures, bilateral LE wrapped c/d/i Neuro: No focal neurologic deficits Psych: Alert and oriented Based on my assessment of this patient, this patient meets a moderate complexity level of care. Acute blood loss anemia: Expected result of surgery. CAD status post CABG x 2 with SUNDAY to LAD and CHAMBERS to obtuse marginal with Dr. Tipton POD 4: ASA 325 mg PO QD. Lipitor 40 mg PO QAM. Plavix 75 mg PO QD. Metoprolol 25 mg PO BID. Hypertension: Metoprolol as above. Dyslipidemia: Lipitor as above. Resovled: Leukocytosis CODE STATUS: FULL CODE. DVT Prophylaxis: Heparin SQ GI Prophylaxis: Protonix PO Designated medical POA if patient is not able to make medical decisions for themselves: I have reviewed the following talent consultant notes: I have reviewed the results of the following tests: CBC, BMP, CXR I have ordered the following tests: I have discussed the care of this patient with the following independent historian: I have independently interpreted the following test below: I have discussed the management of this patient with the following physician: Dr Esau Carrero Objective - Vital Signs Vital signs: Vital Signs Temp 98.3 F 05/28/24 03:55 Pulse 75 05/28/24 03:55 Resp 16 05/28/24 03:55 BP 130/83 05/28/24 03:55 Pulse Ox 97 05/28/24 03:55 FiO2 50 05/24/24 16:00 Intake & Output 05/27/24 05/28/24 05/28/24 18:59 06:59 18:59 Intake Total 840 Balance 840 Weight 101.6 kg Intake: Oral 840 Other: Voiding Method Toilet Toilet # Voids 1 2 ABP, PAP, CO, CI - Last Documented Arterial Blood Pressure 127/50 Pulmonary Artery Pressure 23/6 Cardiac Output 6.7 Cardiac Index 3 - Labs CBC & Chem 7: 05/28/24 06:46 05/28/24 06:50 Labs: Abnormal Lab Results - Last 24 Hours (Table) 05/27/24 05/27/24 05/27/24 Range/Units 07:59 07:59 11:51 RBC 3.15 L (4.30-5.90) m/uL Hgb 10.2 L (13.0-17.5) gm/dL Hct 30.7 L (39.0-53.0) % Neutrophils # 8.0 H (1.3-7.7) k/uL Lymphocytes # 0.9 L (1.0-4.8) k/uL Glucose 137 H (74-99) mg/dL POC Glucose (mg/dL) 121 H (70-110) mg/dL Total Protein 5.5 L (6.3-8.2) g/dL Albumin 3.4 L (3.5-5.0) g/dL 05/27/24 05/27/24 05/28/24 Range/Units 16:40 20:07 06:04 RBC (4.30-5.90) m/uL Hgb (13.0-17.5) gm/dL Hct (39.0-53.0) % Neutrophils # (1.3-7.7) k/uL Lymphocytes # (1.0-4.8) k/uL Glucose (74-99) mg/dL POC Glucose (mg/dL) 158 H 141 H 119 H (70-110) mg/dL Total Protein (6.3-8.2) g/dL Albumin (3.5-5.0) g/dL 05/28/24 Range/Units 06:46 RBC 3.03 L (4.30-5.90) m/uL Hgb 9.8 L (13.0-17.5) gm/dL Hct 29.1 L (39.0-53.0) % Neutrophils # (1.3-7.7) k/uL Lymphocytes # (1.0-4.8) k/uL Glucose (74-99) mg/dL POC Glucose (mg/dL) (70-110) mg/dL Total Protein (6.3-8.2) g/dL Albumin (3.5-5.0) g/dL
[2024-05-28 11:10] VITALS: BP 123/58; TEMP 97.9
[2024-05-28 11:21] VITALS: PULSE 68
--- NOTE | 2024-05-28 11:26 | P.PN ---
Subjective HISTORY OF PRESENT ILLNESS: The patient is a 63-year-old male who is followed by Dr. Torrez who was admitted today to undergo coronary bypass grafting by Dr. Tipton. He was evaluated as an outpatient by Dr. Torrez and was found to have moderate area of stress-induced ischemia, he subsequently underwent cardiac catheterization that showed occluded LAD from the proximal to the midportion at the bifurcation of a large diagonal branch and significant disease in the OM. The right coronary artery had mild obstructive disease. He underwent CABG today with CHAMBERS to the OM and SUNDAY to the LAD. He is intubated and sedated, hemodynamically stable. He is in sinus mechanism on no vasopressors. He has good urinary output. Preoperatively his systolic function was normal by echocardiography. His coronary risks factor are positive for hypertension and hyperlipidemia May 25 The patient is extubated, sitting up in the chair, feeling well. He denies any significant dyspnea, dizziness or palpitations. He continues to be in sinus mechanism. He has soreness in the chest but he is using his incentive spirometry. He is on no vasopressors. His urinary output has been good. May 26: The patient is feeling well this morning, denies any chest pain, dizziness or palpitations. Hemodynamically stable. He is ambulating. He continues to be in sinus mechanism. His urinary output is stable. He is on no vasopressors. May 27 Patient has been transferred out of the intensive care unit and seen today on the cardiac stepdown unit. He denies having any chest pain or chest pressure. No shortness of breath. He is utilizing incentive spirometry but will increase frequency. Blood pressure 133/82, heart rate 75, pulse ox 98% on room air. WBC 9.7, hemoglobin 10.2, creatinine 0.85, potassium 4.1. Yesterday, beta-maico was increased to 25 mg twice daily. Patient states that he is expecting to be discharged home on Thursday. Medications: Aspirin, Lipitor 40 mg daily, Plavix 75 mg daily, metoprolol 25 mg twice a day May 28, 2024 Patient examined this morning. He is sitting up in the chair. Patient denies chest pain or pressure. He denies shortness of breath. He has been up ambulating without difficulty. Telemetry Veals sinus mechanism. Vital signs are stable. He is hoping to be discharged home today. PHYSICAL EXAM: VITAL SIGNS: Reviewed. GENERAL: Well-developed in no acute distress. NECK: Supple. No JVD or thyromegaly LUNGS: Respirations even and unlabored. Lungs essentially clear to auscultation bilaterally. HEART: Regular rate and rhythm. S1 and S2 heard. EXTREMITIES: Normal range of motion. No clubbing or cyanosis. Peripheral pulses intact. No lower extremity edema ASSESSMENT: Coronary artery disease, status post CABG with CHAMBERS to OM and SUNDAY to LAD Hypertension Hyperlipidemia Daily alcohol use Former nicotine dependence PLAN: Continue postoperative management per CT surgery Increase activity as tolerated Encourage continued use of incentive spirometer Continue current cardiac medications Patient is stable for discharge home today from a cardiac standpoint He is to follow-up postdischarge with Dr. Torrez Nurse practitioner note has been reviewed by physician. Signing provider agrees with the documented findings, assessment, and plan of care documented by CLIENT SERVICES ASSISTANT as a scribe. Objective - Vital Signs Vital signs: Vital Signs Temp 97.9 F 05/28/24 09:00 Pulse 68 05/28/24 11:19 Resp 16 05/28/24 11:19 BP 123/58 05/28/24 09:00 Pulse Ox 95 05/28/24 09:00 FiO2 50 05/24/24 16:00 Intake & Output 05/27/24 05/28/24 05/28/24 18:59 06:59 18:59 Intake Total 840 480 Balance 840 480 Weight 101.6 kg Intake: Oral 840 480 Other: Voiding Method Toilet Toilet Toilet # Voids 1 2 ABP, PAP, CO, CI - Last Documented Arterial Blood Pressure 127/50 Pulmonary Artery Pressure 23/6 Cardiac Output 6.7 Cardiac Index 3 - Labs CBC & Chem 7: 05/28/24 06:46 05/28/24 06:50 Labs: Abnormal Lab Results - Last 24 Hours (Table) 05/27/24 05/27/24 05/27/24 Range/Units 11:51 16:40 20:07 RBC (4.30-5.90) m/uL Hgb (13.0-17.5) gm/dL Hct (39.0-53.0) % Glucose (74-99) mg/dL POC Glucose (mg/dL) 121 H 158 H 141 H (70-110) mg/dL 05/28/24 05/28/24 05/28/24 Range/Units 06:04 06:46 06:50 RBC 3.03 L (4.30-5.90) m/uL Hgb 9.8 L (13.0-17.5) gm/dL Hct 29.1 L (39.0-53.0) % Glucose 121 H (74-99) mg/dL POC Glucose (mg/dL) 119 H (70-110) mg/dL
[2024-05-28 11:48] LABS: Glucose,Whole Blood 115 mg/dL (70-110)
--- NOTE | 2024-05-28 13:40 | P.DS ---
Providers Date of admission: 05/24/24 05:35 Expected date of discharge: 05/28/24 Attending physician: Rick Tipton Consults: 05/24/24 12:40 Consult Physician Routine Consulting Provider: Jose Alfredo Carrero Consult Reason/Comments: Child Care Coordinator Consult: post cardiac surgery Do you want consulting provider notified?: Yes Consult Physician Routine Consulting Provider: Aneta Thomas Consult Reason/Comments: [facility]; [facility] Do you want consulting provider notified?: Yes Consult Physician Routine Consulting Provider: Tho Paz Consult Reason/Comments: Collection Support Specialist Consult: post cardiac surgery Do you want consulting provider notified?: Yes Primary care physician: Christofer Romero Hospital Course: FINAL DIAGNOSIS: Coronary artery disease, unstable angina, status post off-pump coronary artery bypass graft x 2 Postoperative acucte blood loss anemia and thrombocytopenia, expected given hemodilution History of hypertension Hyperlipidemia, treated, cholesterol 275, LDL 148, TG 335 Basal cell skin cancer Daily EtOH use Previous tobacco dependence, preoperative FEV1 87% of predicted Family history of premature coronary artery disease with mother from [place] at 60 years old PRINCIPAL PROCEDURE: 1. Off-pump coronary artery bypass graft x 2 with right internal mammary artery to left anterior descending artery and left internal mammary artery to obtuse marginal 2. Ligation of left atrial appendage with a 35 mm atrial cure clip 3. Intraoperative transesophageal echocardiogram completed by anesthesia HISTORY OF PRESENT ILLNESS: This is a 63-year-old gentleman who follows on an outpatient basis with Dr. Christofer Romero for his primary care and with Dr. Torrez for his cardiology care. The patient has a past medical history significant for hypertension, hyperlipidemia, family history of early onset coronary artery disease with his mom passing away at age 60 from a heart attack, skin cancer to his head and to his left upper chest, osteoarthritis with history of bilateral rotator cuff surgery, a remote history of nicotine dependence quit smoking 20 years ago and daily EtOH use drinking 2-3 beers per day. Recently the patient states he underwent a physical exam and was complaining of some shortness of breath episodes to his primary care physician. Subsequently the patient was seen by Dr. Torrez from cardiology and underwent a nuclear Sangeetha scan Cardiolite stress test on February 17, 2024 which demonstrated an abnormal myocardial perfusion with evidence of reversible defect of moderate size and moderate intensity anteriorly, it also showed a normal left ventricular systolic function. For further evaluation on April 21, 2024 the patient underwent a transthoracic 2D echocardiogram which showed a normal left ventricular systolic function with an ejection fraction of 55%, mild mitral valve regurgitation directed centrally, a trileaflet aortic valve with mild aortic valve regurgitation, mild tricuspid valve regurgitation and a normal pulmonary artery systolic pressure of 25 mmHg. Due to the patient's continued complaints of shortness of breath with activity and some jaw discomfort with activity the patient was recommended to undergo a cardiac catheterization which was completed on May 13, 2024. The cardiac catheterization revealed mild disease to his left main coronary artery, a 70 to 80% stenosis to his circumflex coronary artery, and occluded left anterior descending coronary artery in the proximal to midportion, and shows the left anterior descending coronary artery fills mainly by contralateral collaterals, and mild disease in the proximal portion of the right coronary artery with no high-grade stenosis. Subsequently due to the patient's results of his stress test, the patient's symptoms and the findings on the cardiac catheterization a consult was placed to Dr. Rick Tipton from cardiothoracic surgery for further evaluation and treatment recommendations including myocardial vascularization surgery. The patient and his met with Dr. Tipton as an outpatient, treatment options were discussed with the patient by Dr. Tipton including myocardial revascularization surgery. Risks and benefits of surgery including the STS risk or were discussed with the patient and knowing and understanding the risks and the patient wished to proceed with the surgical option. HOSPITAL COURSE: The patient was brought to the preoperative area 05/24/24, prepared in the usual fashion, and subsequently taken to the operating room where Dr. Tipton performed an off-pump coronary artery bypass graft x 2 with right internal mammary artery to left anterior descending artery and left internal mammary artery to obtuse marginal Upon completion of surgery the patient was transferred to the cardiovascular intensive care unit where he was recovered and monitored hemodynamically. He was extubated, all lines, tubes, and drips were discontinued when appropriate, and transfer orders were placed for 3 S. cardiac stepdown unit, for further monitoring and rehabilitation. His oxygen was titrated down, he continued to work with physical and occupational therapy, he was tolerating oral diet, his pain was controlled, and he was ready to be discharged to home with [facility] care on postoperative day #4. He received written and verbal instruction regarding his medications, activity restrictions, signs and symptoms requiring physician notification, and follow-up appointments. Plan - Discharge Summary Discharge Rx Participant: No New Discharge Prescriptions: New Metoprolol Tartrate [Lopressor] 25 mg PO BID #60 tab Acetaminophen Tab [Tylenol] 650 mg PO Q4HR PRN tab PRN Reason: Fever And/ Or Pain Thiamine [Vitamin B-1] 100 mg PO DAILY #30 tab Aspirin 325 mg PO DAILY #30 tab Folic Acid 1 mg PO DAILY #30 tab Clopidogrel [Plavix] 75 mg PO DAILY #30 tab Pantoprazole [Protonix] 40 mg PO AC-BRKFST #30 tab Continue Vit B-12(Unknown Dose) 1 dose PO QAM Vitamin D3(Unknown Dose) 1 tab PO DAILY Atorvastatin [Lipitor] 40 mg PO QAM Discontinued Olmesartan Medoxomil [Benicar] 20 mg PO QAM Aspirin EC [Ecotrin Low Dose] 81 mg PO QAM Discharge Medication List Atorvastatin [Lipitor] 40 mg PO QAM 05/11/24 [History] Vit B-12(Unknown Dose) 1 dose PO QAM 05/11/24 [History] Vitamin D3(Unknown Dose) 1 tab PO DAILY 05/20/24 [History] Acetaminophen Tab [Tylenol] 650 mg PO Q4HR PRN tab 05/28/24 [Rx] Aspirin 325 mg PO DAILY #30 tab 05/28/24 [Rx] Clopidogrel [Plavix] 75 mg PO DAILY #30 tab 05/28/24 [Rx] Folic Acid 1 mg PO DAILY #30 tab 05/28/24 [Rx] Metoprolol Tartrate [Lopressor] 25 mg PO BID #60 tab 05/28/24 [Rx] Pantoprazole [Protonix] 40 mg PO AC-BRKFST #30 tab 05/28/24 [Rx] Thiamine [Vitamin B-1] 100 mg PO DAILY #30 tab 05/28/24 [Rx] Follow up Appointment(s)/Referral(s): Mary Ortez NPC [Nurse Practitioner] - 06/03/24 12:15 pm (You will be seen in the surgeon's office behind the hospital in [facility], [place], [facility], [address]. Office phone number is ) Rehab Cheryl GARDNER,Cardiac [NON-STAFF] - 4 Weeks (You will receive a phone call in approximately 4-6 weeks for evaluation for cardiac rehab) [facility] [NON-STAFF] - Nate Torrez MD [STAFF PHYSICIAN] - 06/15/24 5:00 pm Christofer Romero MD [Primary Care Provider] - 06/06/24 2:15 pm Rick Tipton MD [STAFF PHYSICIAN] - 06/23/24 2:00 pm Jose Alfredo Carrero MD [STAFF PHYSICIAN] - 06/20/24 8:30 am Ambulatory/Diagnostic Orders: Complete Blood Count w/diff [LAB.AMB] Time Frame: 05/31/24, Facility: [facility], Location: Laboratory [facility] Comprehensive Metabolic Panel [LAB.AMB] Time Frame: 05/31/24, Facility: [facility], Location: Laboratory [facility] Activity/Diet/Wound Care/Special Instructions: DISCHARGE INSTRUCTIONS: 1. No driving for 4 weeks, or until physician gives their ok. 2. The patient should sleep in their own bed, no medical bed needed. 3. Stairs are not an issue. If the bedroom is upstairs, it is advised that the patient go up at night and down in the morning for the first week. Go slowly, using handrail and take 1 step at a time. 4. SARA hose are to be worn for 30 days post surgery or until physician di scontinues. 5. Heart hugger is to be worn 100% of the time until physician discontinues.(except when showering) 6. No lifting, pushing, or pulling more than 10 pounds for 12 weeks. The physician will advise of any restriction changes. 7. The patient is expected to continue the prescribed walking program. 8. Continue pain control per as needed orders. 9. Continue with incentive spirometry and splinting/heart hugger until otherwise directed by the physician. 10. Must shower daily using liquid antibacterial soap 11. Routine sternal incision care. No powders, lotions, ointments on incisions. No dressings are necessary on incisions unless they are draining. Dermabond tape is to remain on sternal incision until surgeon follow-up. 12. Please call surgeon/PUBLIC POLICY COORDINATOR for temp greater than 101 F or purulent drainage from incisions. 13. You should weigh yourself daily, record and bring log with you to follow up appointments. 14. All prescriptions given by surgeon for 30 days. Refills need to be filled through [facility]/primary care physician. 15. A Red armband has been placed on the patient. It should be worn for 30 days post discharge from surgery and will be removed by the cardiac surgeons. If an ER visit is necessary, please make sure the number on the Red armband is called before going to ER. 16. You have been referred to and are expected to begin Cardiac Rehab in approximately 4-6 weeks. 17. Quitting smoking is the most important step you can take to improve your health. For additional information and assistance to quit smoking, please call the [place] tobacco quit line (3-975-DSGM-NOW/ ) or online: [email or web address] HEALTH SERVICES TO PROVIDE: RN SKILLED HOME CARE SERVICES FOR POST-OP SURGICAL PATIENTS WITH THE FOLLOWING: Coronary Artery Bypass Surgery (CABG), Mitral Valve Replacement/Repair ( MVR), Aortic Valve Replacement/Repair (AVR) RN TO CONTINUE EDUCATION FROM ``ROAD TO A HEALTH HEART PATIENT EDUCATION MANUAL (GIVEN TO PATIENT IN THE HOSPITAL) MEDICATION RECONCILIATION WITH EDUCATION NEEDED ON FIRST HOME VISIT EMPHASIZE IMPORTANCE OF WEARING BREAST SUPPORT/HEART HUGGER ENCOURAGE USE OF INCENTIVE SPIROMETER 10 X EVERY HOUR WHILE AWAKE ENCOURAGE UTILIZATION OF LOWER EXTREMITY COMPRESSION STOCKINGS/SARA HOSE and ELEVATE LEGS ABOVE LEVEL OF HEART WHILE AT REST. ENCOURAGE AMBULATION 3-5x/day INCREASING TOLERATES, WHILE AVOIDING EXTREMES IN TEMPERATURE FREQUENCY: RN TO OPEN THE PATIENT WITHIN 24 HOURS OF DISCHARGE FROM THE HOSPITAL WITH TELEHEALTH [place] [facility] [place] VISIT 2-3 X A WEEK FOR 4 WEEKS ESTABLISHED BY PATIENT NEEDS. LABORATORY: CBC, CMP TO BE DRAWN ON THE THIRD DAY HOME, (RAN STAT) FAX RESULTS TO [phone]. TELEHEALTH PARAMETERS: WEIGHT: NOTIFY MD OF WEIGHT GAIN OF 2 LBS IN 24 HOURS OR 5 LBS IN ONE WEEK HR: NOTIFY MD OF HR <55 BPM OR HR>100 BPM BP: NOTIFY MD IF BP <90/55 OR BP>140/100 O2 SAT: NOTIFY MD IF PO2<93% ON ROOM AIR SEND TELEHEALTH REPORT TO DIRECTOR ELECTRONICS AND CARDIOVASCULAR SURGEON THE FIRST WEEK OF CARE AND THEN BI-WEEKLY. PLEASE ADDITIONALLY COMMUNICATE ANY ABNORMALS AND NEW FINDINGS TO THE SURGEONS OFFICE.
--- NOTE | 2024-05-28 14:03 | P.PN ---
Subjective Progress Note Date: 05/28/24 This is a 63-year-old male patient who underwent coronary artery bypass surgery and the patient is being seen in the intensive care unit postop. The patient had a stress-induced ischemia the patient underwent cardiac catheterization and the patient was found to have occluded LAD from proximal to midportion at the bifurcation of a large diagonal branch and significant disease involving the OM. The right coronary artery disease also showed mild obstructive disease. The patient underwent coronary bypass surgery with CHAMBERS to OM and SUNDAY to LAD. The patient remains intubated on the mechanical ventilator. At this point in time, the patient is sedated on propofol which is running at 40 mcg/kg/min. The patient is on mechanical ventilator on assist-control mode rate of 16, tidal volume of 550, FiO2 of 100% with a PEEP of 10. Blood gas showed a pH of 7.4 with a pCO2 of 40 and pO2 of 298 and accordingly the FiO2 was dropped down to 60%. Postop chest x-ray was noted and the patient has a right pleural and left pleural and the mediastinal chest tube. ET tube is in a good location. The patient also has [place] catheter in place. There is a left basilar atelectasis/pleural effusion noted. The cardiac output currently is at 4.0 with an index of 2.8. PA pressure 25/40. He is on no pressors. He is on insulin running at 1 unit an hour and the patient is in normal sinus rhythm. Hemoglobin is 11.2 with a white cell count of 11.9 and a platelet count of 146. Sugar is at 131. Comorbidities include hypertension hyperlipidemia. 05/25/2024, the patient is being seen for a follow-up. The patient is postop day #1. The patient is doing extremely well and the patient is currently on room air oxygen. No respiratory difficulties and the patient using incentive spirometer and is pulling approximately 750 cc. Chest x-ray shows no acute abnormalities. There are some atelectatic changes in the right upper lobe area. No evidence of any pneumothorax. Chest tubes are in place and the patient has a right pleural (mediastinal chest tube. The cardiac output is currently at 8.1 with an index of 3.7. Pulmonary artery pressure is 28/3. CVP is at 3. The patient is being a given IV fluids. Output from the left lower chest tube is 130 cc overnight and 300 cc since surgery. Right pleural chest tube has produced approximately 380 cc overnight and 800 cc since surgery. The cardiac rhythm is sinus. No focal neurological deficits. Blood work from today shows a white cell count of 9.7 with a hemoglobin 9.9 and platelet count of 133. Electrolytes are within normal limits. BUN is at 10 with a creatinine of 0.7. The patient was weaned off the mechanical ventilator and the patient was extubated yesterday without any major difficulties. 05/26/2024, the patient is postop day #2. The patient is doing extremely well. The patient was weaned off the mechanical ventilator and the patient was extubated and the patient is currently on room air oxygen. Hemodynamically stable. The chest tubes are all in place. Cardiac rhythm is sinus. No significant respiratory difficulties. The patient is using the incentive spirometer. The chest x-ray from today is showing some atelectatic changes in the lung bases along with postthoracotomy changes. There is improvement in the right perihilar infiltrate it was discussed earlier. Lines and catheters are all in place. No other significant abnormalities are noted. Blood work from today shows a WBC count of 10.7, hemoglobin 9.2 and a platelet count of 124. BUN 13 with a creatinine of 0.8 and a sodium levels at 137 and electrolytes are all within normal limits including the liver function tests. No other significant events overnight. 05/27/2024, I am seeing the patient for a follow-up. The patient is doing well with no specific complaints. The patient is currently postop day #3 following coronary artery bypass surgery. The patient is sitting up in a chair and the patient is calm and comfortable. On today's evaluation, the patient is producing approximately 180 cc of serosanguineous drainage from the left-sided chest tube and a total of 170 cc from the right-sided chest tube. No evidence of any air leak. Using incentive spirometer and pulling more than 1000. No other significant events overnight. The patient underwent a of pulm two-vessel bypass surgery. Neurologically intact. The hemoglobin is at 10.2 with a white cell count of 9.7 and platelet count of 167. All of the electrolytes are within normal limits. The patient is currently on aspirin, metoprolol 25 mg p.o. twice a day, and high-dose statins. Pain is under adequate control for now. He is also on Plavix. On 05/28/2024, patient is doing well. Currently on room air oxygen. Resting comfortably in bed. No significant respite distress. The patient is postop day #4 following coronary bypass surgery. Chest x-ray shows no acute abnormalities. Consistent with postsurgical changes. Limited atelectatic changes in lung base bilaterally. 14 with a creatinine 0.8 and a CBC showing a white cell count of 9.9 with a hemoglobin of 9.8. The patient's cardiac rhythm is sinus. The patient is ambulating. The patient using incentive spirometer. The patient remains on a combination of aspirin and Plavix and the patient is also on m etoprolol 25 mg p.o. twice a day. Patient is on Lipitor 40 mg p.o. daily. Adequate pain control. Objective - Vital Signs Vital signs: Vital Signs Temp 98.3 F 05/28/24 03:55 Pulse 75 05/28/24 03:55 Resp 16 05/28/24 03:55 BP 130/83 05/28/24 03:55 Pulse Ox 97 05/28/24 03:55 FiO2 50 05/24/24 16:00 Intake & Output 05/27/24 05/28/24 05/28/24 18:59 06:59 18:59 Intake Total 840 480 Balance 840 480 Weight 101.6 kg Intake: Oral 840 480 Other: Voiding Method Toilet Toilet # Voids 1 2 ABP, PAP, CO, CI - Last Documented Arterial Blood Pressure 127/50 Pulmonary Artery Pressure 23/6 Cardiac Output 6.7 Cardiac Index 3 - Exam CONSTITUTIONAL: Appears comfortable, cooperative, no acute distress RESPIRATORY: Lungs sounds diminished bilaterally. Respirations even, nonlabored. Currently on room air CARDIOVASCULAR: S1, S2 present. Regular rate and rhythm, sinus rhythm on te lemetry. Sternum stable. Palpable peripheral pulses bilaterally. No edema present. No calf pain or tenderness noted. Heart hugger in place with patient demonstrating appropriate use. Antiembolism stockings, SCDs present. GASTROINTESTINAL: Abdomen soft, nontender, nondistended. Active bowel sounds present 4 quadrants. Tolerating diet. Positive bowel movement 05/26 GENITOURINARY: Continues to void INTEGUMENTARY: Skin is warm and dry with evidence of good perfusion. Anterior chest incision well approximated and covered with dry intact dressing NEUROLOGIC: Cranial nerves II through XII intact MUSKULOSKELETAL: Able to move all extremities, strength equal bilaterally, gait normal PSYCHIATRIC: Alert and oriented to person place and time, appropriate affect, intact judgment and insight INVASIVE LINES AND TUBES: All of the tubes have been removed - Labs CBC & Chem 7: 05/28/24 06:46 05/28/24 06:50 Labs: Abnormal Lab Results - Last 24 Hours (Table) 05/27/24 05/27/24 05/27/24 Range/Units 07:59 11:51 16:40 RBC (4.30-5.90) m/uL Hgb (13.0-17.5) gm/dL Hct (39.0-53.0) % Glucose 137 H (74-99) mg/dL POC Glucose (mg/dL) 121 H 158 H (70-110) mg/dL Total Protein 5.5 L (6.3-8.2) g/dL Albumin 3.4 L (3.5-5.0) g/dL 05/27/24 05/28/24 05/28/24 Range/Units 20:07 06:04 06:46 RBC 3.03 L (4.30-5.90) m/uL Hgb 9.8 L (13.0-17.5) gm/dL Hct 29.1 L (39.0-53.0) % Glucose (74-99) mg/dL POC Glucose (mg/dL) 141 H 119 H (70-110) mg/dL Total Protein (6.3-8.2) g/dL Albumin (3.5-5.0) g/dL 05/28/24 Range/Units 06:50 RBC (4.30-5.90) m/uL Hgb (13.0-17.5) gm/dL Hct (39.0-53.0) % Glucose 121 H (74-99) mg/dL POC Glucose (mg/dL) (70-110) mg/dL Total Protein (6.3-8.2) g/dL Albumin (3.5-5.0) g/dL Assessment and Plan Plan: Multivessel coronary artery disease, s/p coronary bypass surgery with CHAMBERS to OM and SUNDAY to LAD, patient is currently postop day #4. Hemodynamically stable. Clinically and hemodynamically stable. Postthoracotomy, extubated, currently on room air oxygen. The chest tubes have been removed and the patient has no respiratory difficulties, ambulating and currently is on room air oxygen. Hypertension Hyperlipidemia History of skin cancer Plan Encouraged use of incentive spirometer Chest x-ray from today was noted. Continue aggressive pulmonary toileting Continue aspirin and Plavix Continue metoprolol Patient is on high-dose statins Chest tube will be removed Urine output is adequate Cardiac rhythm is sinus and will continue to follow Possible discharge home today.
== END 2024-05-28 14:38 | disposition home health service (06) | DRG 236 ==
LOC: 2ORMAIN 05:35 → 2SICU 12:18 → 3SCARD 05-26 18:40
PROVIDERS: ADMIT Thoracic Surgery (Cardiothoracic Vascular Surgery); ATTEND Thoracic Surgery (Cardiothoracic Vascular Surgery)
PROC: 02100Z8 Bypass Coronary Artery, One Artery from Right Internal Mammary, Open Approach (ICD-10-PCS; 2024-05-24)
PROC: B24BZZ4 Ultrasonography of Heart with Aorta, Transesophageal (ICD-10-PCS; 2024-05-24)
PROC: 02L70CK Occlusion of Left Atrial Appendage with Extraluminal Device, Open Approach (ICD-10-PCS; 2024-05-24)
PROC: 02100Z9 Bypass Coronary Artery, One Artery from Left Internal Mammary, Open Approach (ICD-10-PCS; principal; 2024-05-24 08:00)
DX: I25.110 Atherosclerotic heart disease of native coronary artery with unstable angina pectoris (principal); J98.11 Atelectasis; I25.82 Chronic total occlusion of coronary artery; I95.9 Hypotension, unspecified; I10 Essential (primary) hypertension; I08.3 Combined rheumatic disorders of mitral, aortic and tricuspid valves; E78.5 Hyperlipidemia, unspecified; Z87.891 Personal history of nicotine dependence; Z79.899 Other long term (current) drug therapy; Z79.82 Long term (current) use of aspirin; Z79.02 Long term (current) use of antithrombotics/antiplatelets; Z85.828 Personal history of other malignant neoplasm of skin; Z82.49 Family history of ischemic heart disease and other diseases of the circulatory system
CPT/HCPCS: 71045; 71046; 80048; 80053; 82330; 82805; 83735; 85025; 85027; 85610; 85730; 86850; 86900; 86901; 86920; 94002; 94640; 94760